=== PATIENT | male | born 1950 | race Caucasian/White ===

== ENCOUNTER → 2019-04-15 09:05 | Outpatient (CLI) | payer MEDICARE, OTHER, SELFPAY ==
[2019-04-15 11:01] LABS: Anion Gap 8 (5-15); BUN 25 mg/dL (7-18); BUN/Creat Ratio 21.2 RATIO (10-20); Calcium,Total 8.9 mg/dL (8.5-10.1); Chloride 102 mmol/L (98-107); Cholesterol 244 mg/dL (200); Creatinine, Serum 1.18 mg/dL (0.70-1.30); EST Glomerular Filtration Rate 65 mL/min (>60); Est Glom Filt Rate - Afr Amer 78 mL/min (>60); Glucose 114 mg/dL (74-106); High Density Lipoprotein 31 mg/dL; PSA,Total - Annual Screen 0.42 ng/mL (0.00-4.00); Potassium 3.3 mmol/L (3.5-5.1); Sodium Level 140 mmol/L (136-145); Triglycerides 363 mg/dL; Very Low Density Lipoprotein 73 mg/dL (5-40)
== END ==
PROVIDERS: Family Provider Family Medicine; PCP Family Medicine; Referring Provider Family Medicine; Visit Provider Family Medicine
DX: I10 Essential (primary) hypertension (principal); Z12.5 Encounter for screening for malignant neoplasm of prostate; E78.00 Pure hypercholesterolemia, unspecified
CPT/HCPCS: 36415; 80048; 80061; 84153; G0103

== ENCOUNTER → 2019-10-12 08:11 | Outpatient (CLI) | payer MEDICARE, OTHER, SELFPAY ==
[2019-10-12 11:13] LABS: Vitamin D,25 Hydroxy 36.3 ng/mL (29.95-100.01)
[2019-10-12 11:16] LABS: Anion Gap 6 (5-15); BUN 14 mg/dL (7-18); BUN/Creat Ratio 10.6 RATIO (10-20); Calcium,Total 9.5 mg/dL (8.5-10.1); Chloride 102 mmol/L (98-107); Cholesterol 229 mg/dL (200); Creatinine, Serum 1.32 mg/dL (0.70-1.30); EST Glomerular Filtration Rate 57 mL/min (>60); Est Glom Filt Rate - Afr Amer 69 mL/min (>60); Glucose 99 mg/dL (74-106); High Density Lipoprotein 35 mg/dL; Potassium 4.1 mmol/L (3.5-5.1); Sodium Level 137 mmol/L (136-145); Thyroid Stim Hormone (TSH) 1.53 uIU/mL (0.358-3.74); Triglycerides 177 mg/dL; Very Low Density Lipoprotein 35 mg/dL (5-40)
== END ==
PROVIDERS: PCP Family Medicine; Referring Provider Family Medicine; Visit Provider Family Medicine
DX: Z00.00 Encounter for general adult medical examination without abnormal findings (principal); I10 Essential (primary) hypertension; E55.9 Vitamin D deficiency, unspecified
CPT/HCPCS: 36415; 80048; 80061; 82306; 84443

== ENCOUNTER → 2019-11-17 07:56 | Outpatient (CLI) | payer MEDICARE, OTHER, SELFPAY ==
[2019-11-17 10:20] LABS: Anion Gap 4 (5-15); BUN 23 mg/dL (7-18); BUN/Creat Ratio 15.4 RATIO (10-20); Calcium,Total 9.1 mg/dL (8.5-10.1); Chloride 100 mmol/L (98-107); Cholesterol 259 mg/dL (200); Creatinine, Serum 1.49 mg/dL (0.70-1.30); EST Glomerular Filtration Rate 49 mL/min (>60); Est Glom Filt Rate - Afr Amer 60 mL/min (>60); Glucose 111 mg/dL (74-106); High Density Lipoprotein 37 mg/dL; Potassium 3.6 mmol/L (3.5-5.1); Sodium Level 137 mmol/L (136-145); Triglycerides 195 mg/dL; Very Low Density Lipoprotein 39 mg/dL (5-40)
[2019-11-17 10:44] LABS: Rubella IgG > 500.0 IU/mL
[2019-11-19 11:01] LABS: Mumps Antibody,IgG 72.4 AU/mL (Immune >10.9); Rubeola IgG Ab > 300.0 AU/mL (Immune >16.4)
== END ==
PROVIDERS: PCP Family Medicine; Referring Provider Family Medicine; Visit Provider Family Medicine
DX: Z00.00 Encounter for general adult medical examination without abnormal findings (principal); I10 Essential (primary) hypertension
CPT/HCPCS: 36415; 80048; 80061; 82043; 86735; 86762; 86765

== ENCOUNTER 2023-02-11 10:12 | Inpatient (IN) | payer MEDICARE, OTHER, SELFPAY ==
[2023-02-11] VITALS (25 sets, daily range): BP systolic 112–171; BP diastolic 69–101; PULSE 69–150; RESP 16–27; TEMP 36.4–36.8; O2SAT 94–100; BMI 28.5; BMI 28.7
--- NOTE | 2023-02-11 10:40 | EKG12_ITS ---
Test Reason : CP Blood Pressure : / mmHG Vent. Rate : 133 BPM Atrial Rate : 000 BPM P-R Int : 000 ms QRS Dur : 128 ms QT Int : 272 ms P-R-T Axes : 000 043 237 degrees QTc Int : 404 ms Atrial fibrillation with rapid ventricular response Left bundle branch block Abnormal ECG Confirmed by SANTOSH DODSON, SYDNEY ([id number]), sound editor ROSA VELASCO ([id number]) on 02/12/2023 9:05:22 AM Referred By: Confirmed By:SYDNEY FROST MD
--- NOTE | 2023-02-11 10:42 | EDS_ITS ---
HPI History of Present Illness Chief Complaint: Palpitations Onset/Context/Timing Onset: Weeks (1) Context: Sudden Onset Timing: Intermittent Quality: Lightheaded Location: Generalized Worsened by: Nothing Relieved by: Nothing Narrative Narrative: Patient presents with palpitations that have been intermittent over the past week. Patient states he had some nausea and vomiting approximately 10 days ago. Patient states the palpitations started soon after that. Patient states he feels like his heart is jumping around. Patient also states he feels like he is lightheaded. Patient states nothing makes it better nothing makes it worse. Patient states he does have some episodes of paroxysmal nocturnal dyspnea. Patient states his nausea and vomiting has since resolved but his palpitations continue to be intermittent and more frequent. Patient denies any chest pain. [facility] Medical History (Updated 02/11/23 @ 11:[address] Raad Pierre DO) Coronary artery disease Home Medications NK 02/11/23 [History Last Taken Unknown] Allergy/AdvReac Type Severity Reaction Status Date / Time No Known Allergies Allergy Verified 02/11/23 10:12 Family History (Updated 02/11/23 @ 10:[address] Raad Pierre DO) Mother CAD (coronary artery disease) Surgical History (Updated 02/11/23 @ 10:[address] Raad Pierre DO) History of heart bypass surgery Hx of foot surgery Hx of knee surgery Social History Smoking Status: Former smoker ROS ROS ED Constitutional Constitutional ED: Denies chills or fever(s) Eyes Eyes: Denies blurry vision or change in vision ENT ENT ED: Denies rhinorrhea or sore throat Cardiovascular Cardiovascular: Reports palpitations; Denies chest pain Respiratory/Chest Respiratory/Chest: Reports dyspnea; Denies cough Gastrointestinal Gastrointestinal: Reports nausea and vomiting Genitourinary Genitourinary ED: Denies dysuria or hematuria Musculoskeletal Musculoskeletal: Denies back pain or neck pain Integumentary Denies abscess or rash Neurologic Neurologic: Denies headache(s) or weakness Allergic/Immunologic Allergic/Immunologic ED: Denies mouth swelling or urticaria EXAM Physical Exam Const Vital Signs: 02/11/23 10:13 02/11/23 12:28 02/11/23 13:25 Temperature 97.6 F L 98.1 F 97.8 F Temperature Source Temporal Oral Temporal Pulse Rate 150 H 109 H 120 H Respiratory Rate 16 18 16 Blood Pressure 145/101 H 161/84 H 145/97 H Blood Pressure Mean 115 109 113 Blood Pressure Source Monitor Blood Pressure Position Semi-Fowlers Blood Pressure Location Left Arm Pulse Ox 100 94 96 Oxygen Delivery Method Room Air Room Air Room Air Positive well nourished and well developed General Appearance ED: well developed HEENT Reports moist mucous membranes Neck supple and no JVD Resp normal respiratory effort and clear to auscultation bilaterally Cardio Rate: tachycardic Rhythm: abnormal rhythm irregularly irregular GI normal to inspection, nondistended, normoactive bowel sounds and non-tender Palpation: soft Extremity normal to inspection General Extremety ED: Negative for edema or tenderness General Extremity: Negative for edema Neuro oriented x3, CN's II-XII intact bilaterally and no sensory deficits noted Sensorium / Orientation: alert Motor Exam: strength 5/5 throughout Psych mental status grossly normal Skin no rashes or lesions noted MDM MDM MDM Narrative Medical decision making narrative: Differential diagnosis includes cardiac dysrhythmia, cardiac ischemia, electrolyte abnormality, dehydration, acute kidney injury, and congestive heart failure. EKG will be obtained to assess for cardiac dysrhythmia and cardiac ischemia. CBC will be obtained to assess for leukocytosis and anemia. Basic metabolic profile will be obtained to assess for electrolyte abnormality and renal function. PT with INR and PTT will be obtained to assess for coagulopathy. High-sensitivity troponin will be obtained to assess for cardiac ischemia. Chest x-ray will be obtained to assess for cardiomegaly and congestive heart failure. Lab Data Attestation: I reviewed the patient's lab results. Lab results narrative: CBC was reviewed. There is a slight anemia with a hemoglobin of 12.3 and hematocrit 37.5. Platelets were slightly increased at 556. Basic metabolic profile was reviewed. Creatinine was slightly elevated at 1.37 and BUN was 19. Glucose was slightly elevated at 147. High-sensitivity troponin was reviewed and was elevated at 3241. PT with INR and PTT were reviewed and were within normal limits. Labs: Laboratory Results - last 24 hr 02/11/23 02/11/23 02/11/23 10:25 10:25 10:25 WBC 10.3 RBC 4.31 L Hgb 12.3 L Hct 37.5 L MCV 87.0 MCH 28.5 MCHC 32.8 RDW Std Deviation 42.1 RDW Coeff of Kash 13.2 Plt Count 556 H MPV 9.2 Immature Gran % (Auto) 0.400 Neut % (Auto) 81.4 H Lymph % (Auto) 11.4 L [place] % (Auto) 5.5 Eos % (Auto) 0.7 Baso % (Auto) 0.6 Absolute Neuts (auto) 8.4 H Absolute Lymphs (auto) 1.17 Nucleated RBC % 0 PT 13.9 INR 1.1 APTT 34.2 Sodium 135 L Potassium 3.5 Chloride 101 Carbon Dioxide 27.0 Anion Gap 7 BUN 19 H Creatinine 1.37 H Estim Creat Clear Calc 51.92 Est GFR (MDRD) Af Amer 65 Est GFR (MDRD) Non-Af 54 L BUN/Creatinine Ratio 13.9 Glucose 147 H Calcium 9.5 Troponin I High Sens 3241 H* Radiography Diagnostic Testing: Clinical Impression(s) from Imaging Studies Chest X-Ray 02/11/23 11:32 IMPRESSION: Chronic interstitial changes, no superimposed acute pulmonary process Electronically Signed: Julio Barr MD at 12:09 EDT , Chest x-ray was obtained. There is 1 view. On my independent interpretation, there is no acute infiltrate. There is cardiomegaly. Bony thorax is normal. There is no acute process noted. Radiologist also interpreted the x-rays and agrees. EKG Initial EKG: Attestation: I personally reviewed and interpreted this EKG as follows: Interpretation: Atrial Fibrillation (133) and LBBB Prior EKG tracings: not available for review Prior: No Prior Management Discussion w/another healthcare provider: Hospitalist (Dr. Stinson) Treatment and Re-Evaluation :: Patient was given a bolus of Cardizem and started on a Cardizem drip. Because of the elevated troponin and atrial fibrillation, patient was started on a heparin drip. Patient was advised of his need for hospitalization. Patient is agreeable with this. Case was discussed with the hospitalist. She will admit the patient to her service. Patient understood and was agreeable with the plan. All questions were answered. Critical Care Time Critical Care Time: Yes Critical care time (excluding procedures): 30-74 minutes (36), Including time spent:, Discussing w/Patient &/or Family/Technology Adoption Manager, Discussing w/Consultants, Arranging Admission or Transfer and Performing Direct Patient Care at Bedside Discharge Plan Dx/Rx/DC Orders Clinical Impression: Atrial fibrillation with rapid ventricular response, Non-ST elevated myocardial infarction (non-STEMI) Disposition Disposition: Acute Care Hospital [facility] Discharge Date/Time: 02/11/23 12:38
[2023-02-11 10:49] LABS: Absolute Lymphocyte Count 1.17 X10^3/uL (0.83-4.51); Absolute Neutrophil Count 8.4 X10^3/uL (2.0-7.7); Basophil# 0.06 X10^3/uL; Basophil% 0.6 % (0-1); Eosinophil# 0.07 X10^3/uL; Eosinophils% 0.7 % (0-5); Hematocrit 37.5 % (40-54); Hemoglobin 12.3 g/dL (13.0-16.5); Lymphocyte # 1.17 X10^3/ul (0.83-4.51); Lymphocyte % 11.4 % (19-41); Mean Corp Hgb Conc 32.8 g/dL (32-36); Mean Corpuscular Hgb 28.5 pg (27.0-32.0); Mean Platelet Vol. 9.2 fl (6.2-12.0); Monocyte# 0.56 X10^3/uL; Monocyte% 5.5 % (0-10); NRBC Flagged by Analyzer 0 % (0-5); Neutrophil # 8.36 X10^3/uL (2.7-7.7); Neutrophil % 81.4 % (47-70); Platelet Count 556 K/mm3 (150-450); RBC Distribution Width CV 13.2 % (11.6-14.6); RBC Distribution Width SD 42.1 fl (35.1-43.9); Red Blood Count 4.31 M/mm3 (4.6-6.2); White Blood Count 10.3 K/mm3 (4.4-11.0)
[2023-02-11] MEDS: dilTIAZem 25 MG/5 ML Vial IV BOLUS ×2 (10:52→21:32)
[2023-02-11 10:58] LABS: Partial Thromboplast Time 34.2 Seconds (24.1-36.2)
[2023-02-11 11:02] LABS: International Normalized Ratio 1.1; Prothrombin Time (Protime)PT. 13.9 SECONDS (11.7-14.9)
[2023-02-11 11:12] LABS: Anion Gap 7 (5-15); BUN 19 mg/dL (7-18); BUN/Creat Ratio 13.9 RATIO (10-20); Calcium,Total 9.5 mg/dL (8.5-10.1); Chloride 101 mmol/L (98-107); Creatinine, Serum 1.37 mg/dL (0.70-1.30); EST Glomerular Filtration Rate 54 mL/min (>60); Est Glom Filt Rate - Afr Amer 65 mL/min (>60); Estimated Creatinine Clearance 51.92 ml/min; Glucose 147 mg/dL (74-106); Potassium 3.5 mmol/L (3.5-5.1); Sodium Level 135 mmol/L (136-145); Troponin-I HS 3241 pg/mL (3.0-78.0)
[2023-02-11] MEDS: Aspirin 81 MG TAB.CHEW 324 MG PO (11:24)
[2023-02-11] MEDS: Heparin Injection (Vial) 5,000 UNIT/ML VIAL 4000 UNIT IV (11:24)
--- NOTE | 2023-02-11 11:32 | RAD_ITS ---
STUDY: X-RAY CHEST REASON FOR EXAM: Male, 72 years old. Palpitations TECHNIQUE: 2 AP portable views COMPARISON: None. FINDINGS: EKG leads overlie the chest Chronic interstitial changes in both lung go without a superimposed acute pulmonary process. Normal size heart. Normal mediastinum and jordin. Normal visualized pulmonary arteries. Normal visualized aortic arch and descending thoracic aorta. There are diffuse degenerative changes of the visualized thoracic spine. Normal visualized ribs, clavicles, and shoulders. There is no demonstrated abnormality of the visualized soft tissue structures of the upper abdomen. RAD/Chest 1 View (Portable) IMPRESSION: Chronic interstitial changes, no superimposed acute pulmonary process Electronically Signed: Julio Barr MD at 12:09 EDT ,
[2023-02-11] MEDS: HEPARIN/D5w 25,000 UNITS 25,000 UNITS/250 ML IV.SOLN. 10 UNITS CONT INF (11:46)
--- NOTE | 2023-02-11 11:56 | HP.PCM.HOS_ITS ---
HPI - General General Date of Admission: 02/11/23 Date of Service: 02/11/23 HPI Narrative ANISH RIVAS, is a 72 M with a PMH as outlined who presents via [facility] ED on 02/11/2023 with a complaint of palpitations. He he started having nausea and vomiting about a week ago. He also felt his heart racing. He said the shortness of breath had been going on for about 2 weeks with associated palpitations. It was worsened by exertion. He denied any chest pain or dizziness or lightheadedness. He denied any increased sweating. He had no other symptoms. He said he had never had such symptoms before. Review of systems otherwise negative. Vitals in the ED were BP of 145/101, with HR of 150, RR of 16 and temp of 97.6F as well as oxygen sats of 100% on room air. CBC showed Hb of 12.3, wbc of 10.3, platelets of 556; BMP was significant for Cr of 1.37, sodium of 135 and initial troponin of 3241. Chest x-ray showed no acute cardiopulmonary process. EKG showed afib with RVR. He has been admitted to be managed for A-fib with RVR which is new onset as well as nonstemi. [facility] Medical History (Updated 02/11/23 @ 11:[address] Raad Pierre DO) Coronary artery disease Home Medications NK 02/11/23 [History Last Taken Unknown] Allergy/AdvReac Type Severity Reaction Status Date / Time No Known Allergies Allergy Verified 02/11/23 10:12 Family History (Updated 02/11/23 @ 10:[address] Raad Pierre DO) Mother CAD (coronary artery disease) Surgical History (Updated 02/11/23 @ 10:[address] Raad Pierre DO) History of heart bypass surgery Hx of foot surgery Hx of knee surgery Social History Smoking Status: Former smoker ROS Constitutional Constitutional: Reports fatigue, malaise and weakness; Denies anorexia, chills or fever(s) Eyes Eyes: Denies change in vision ENT HEENT: Denies dysphagia, headache(s) or nasal congestion Cardiovascular Cardiovascular: Reports dyspnea on exertion, palpitations and rapid heart rate; Denies chest pain, edema, lightheadedness, orthopnea, paroxysmal nocturnal dyspnea or syncope Respiratory/Chest Respiratory/Chest: Reports shortness of breath at rest and shortness of breath with exertion; Denies cough, dyspnea or productive cough Gastrointestinal Gastrointestinal: Reports nausea; Denies abdominal pain, constipation or vomiting Genitourinary Genitourinary: Denies burning urination or dysuria Musculoskeletal Musculoskeletal: Denies arthralgias Neurologic Neurologic: Denies confusion, dizziness, focal weakness, headache(s), seizure- like activity or seizures Endocrine Endocrinology: Denies change in body appearance Hematologic/Lymphatic Hematologic/Lymphatic: Denies anemia or easy bruising Vital Signs Vital Signs Vital Signs: 02/11/23 10:13 Temperature 97.6 F L Temperature Source Temporal Pulse Rate 150 H Respiratory Rate 16 Blood Pressure 145/101 H Blood Pressure Mean 115 Pulse Ox 100 Oxygen Delivery Method Room Air Weight Weight: 210 lb 4.8 oz Body Mass Index (BMI) 28.5 Physical Exam Const alert, oriented x3 and no apparent distress General Appearance: cooperative HEENT normocephalic, head/scalp atraumatic, hearing grossly normal bilaterally, moist oral mucous membranes and oropharynx normal Mouth: oral and palatal mucosa normal Eyes PERRL and EOMs intact bilaterally Neck no lymphadenopathy, supple and no JVD Resp normal respiratory effort, no retractions, no use of accessory muscles and clear to auscultation bilaterally Cardio Cardio Narrative: afib with RVR GI normal to inspection, nondistended, normoactive bowel sounds, soft to palpation, non-tender and non-distended Extremity normal to inspection, full ROM and no clubbing, cyanosis or edema Neuro oriented x3, CN's II-XII intact bilaterally and moves all extremities Sensorium / Orientation: awake and alert Motor Exam: strength 5/5 throughout Psych affect normal Results Lab / Micro Data Result Diagrams: 02/11/23 10:25 02/11/23 10:25 Labs: Laboratory Results - last 24 hr 02/11/23 10:25: WBC 10.3, RBC 4.31 L, Hgb 12.3 L, Hct 37.5 L, MCV 87.0, MCH 28.5, MCHC 32.8, RDW Std Deviation 42.1, RDW Coeff of Kash 13.2, Plt Count 556 H, MPV 9.2, Immature Gran % (Auto) 0.400, Neut % (Auto) 81.4 H, Lymph % (Auto) 11.4 L, [place] % (Auto) 5.5, Eos % (Auto) 0.7, Baso % (Auto) 0.6, Absolute Neuts (auto) 8.4 H, Absolute Lymphs (auto) 1.17, Nucleated RBC % 0 02/11/23 10:25: PT 13.9, INR 1.1, APTT 34.2 02/11/23 10:25: Sodium 135 L, Potassium 3.5, Chloride 101, Carbon Dioxide 27.0, Anion Gap 7, BUN 19 H, Creatinine 1.37 H, Estim Creat Clear Calc 51.92, Est GFR (MDRD) Af Amer 65, Est GFR (MDRD) Non-Af 54 L, BUN/Creatinine Ratio 13.9, Glucose 147 H, Calcium 9.5, Troponin I High Sens 3241 H* Assessment & Plan Assessment/Plan (1) Atrial fibrillation with rapid ventricular response: (2) Non-ST elevated myocardial infarction (non-STEMI): PLAN: Plan #New onset A-fib with RVR * Admit to PCU. Heart rate still in the 150s. Received a bolus of Cardizem in the ED. Started on heparin drip * Will start on Cardizem drip. Continue heparin drip * 2D echo ordered. Initial troponin was also elevated at >1300 * Consult cardiology. Check TSH * #Non-STEMI * This may be due to a demand ischemia on account of A-fib with RVR or the non- STEMI could be the precursor to the A-fib with RVR * Aspirin and high intensity statin. Already on heparin drip. Consult cardiology. * 2D echo ordered. * * #History of CAD s/p CABG: * States he had CABG nearly 20 years ago. 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 * He states he does not take any medications and just exercises and takes care of himself. * We will check lipid panel and A1c. * DVT prophylaxis: Heparin drip CODE STATUS:full code * Patient and counseled extensively about different types of CODE STATUS including full code, DNR CCA and DNR CCA. Patient elects to be full code. * Total [id number] time 17 minutes. Charges/Coding Visit Charges Inpatient E&M: 92373 Init Hosp L3 Procedures Hospitalists Procedures: 00778 Advncd Care Plan 30 Min
--- NOTE | 2023-02-11 11:58 | NURSING ---
DR PARK FOR DR WAGNER
--- NOTE | 2023-02-11 12:04 | NURSING ---
DAYANA Neal RVR, NSTEMI
--- NOTE | 2023-02-11 13:07 | ECHOCS_ITS ---
Reason For Study: ARRYTHMIA Procedure This was a 2D Doppler, Color Flow transthoracic echocardiogram. The study was technically difficult. Contrast injection was performed. Exam performed portable in patient room. Left Ventricle Normal LV size. Moderate global left ventricular systolic dysfunction. The estimated ejection fraction is 38 %. There is moderate global hypokinesis of the left ventricle. Right Ventricle Normal RV size. Normal systolic function. Atria The left atrium is severely enlarged. The right atrium is mildly enlarged. Mitral Valve Normal mitral valve. Tricuspid Valve The tricuspid valve is not well visualized. Mild (1+) tricuspid valve insufficiency. Pulmonary artery systolic pressure is 45 mmHg. Aortic Valve The aortic valve is not well visualized. Pulmonic Valve The pulmonic valve is not well visualized. Great Vessels Normal aortic root. The pulmonary artery is normal size. Normal inferior vena cava. Pericardium/Pleural No pericardial effusion. Medication Diluted definity 2ml given slow IV push to enhance endocardial definition. MMode/2D Measurements & Calculations LVIDd: 5.0 cm IVSd: 1.1 cm LAV(MOD-bp): 124.6 ml LVIDs: 4.0 cm LVPWd: 2.1 cm FS: 20.1 % LAV(MOD-bp) Indexed: 56.3 ml/m2 LAV(MOD-sp2): 136.4 ml LAV(MOD-sp4): 112.0 ml SV(MOD-sp4): 57.4 ml LVAd ap4: 42.5 cm2 LVAd ap2: 37.7 cm2 LVLd ap4: 10.0 cm LVLd ap2: 8.5 cm EDV(MOD-sp4): 150.2 ml EDV(MOD-sp2): 138.1 ml EDV(sp4-el): 153.2 ml EDV(sp2-el): 142.3 ml LVAs ap4: 30.8 cm2 LVAs ap2: 30.3 cm2 LVLs ap4: 8.2 cm LVLs ap2: 8.0 cm ESV(MOD-sp4): 92.8 ml ESV(MOD-sp2): 94.6 ml ESV(sp4-el): 97.9 ml ESV(sp2-el): 97.3 ml EF(MOD-sp4): 38.2 % EF(MOD-sp2): 31.5 % EF(sp4-el): 36.1 % SV(MOD-sp2): 43.5 ml SV(sp4-el): 55.3 ml LA A4 area: 30.8 cm2 RA A4 area: 17.6 cm2 Doppler Measurements & Calculations MV E max jose l: 110.1 cm/sec MV V2 max: 126.5 cm/sec Ao V2 max: 99.0 cm/sec MV max P.5 mmHg Ao max P.0 mmHg MV V2 mean: 76.6 cm/sec Ao V2 mean: 73.9 cm/sec MV mean P.9 mmHg Ao mean P.4 mmHg MV V2 VTI: 27.3 cm Ao V2 VTI: 15.4 cm AV (velocity ratio): 0.78 LV V1 max: 83.8 cm/sec MR max jose l: 507.6 cm/sec TR max jose l: 312.7 cm/sec LV V1 max P.8 mmHg MR max P.1 mmHg TR max P.1 mmHg LV V1 mean P.7 mmHg MR mean jose l: 408.8 cm/sec LV V1 mean: 62.9 cm/sec MR mean P.8 mmHg LV V1 VTI: 11.9 cm MR VTI: 147.6 cm ECHO/Echo Complete W/ Contrast Interpretation Summary Normal LV size. Moderate global left ventricular systolic dysfunction. The estimated ejection fraction is 38 %. There is moderate global hypokinesis of the left ventricle. The left atrium is severely enlarged. Pulmonary artery systolic pressure is 45 mmHg. Contrast injection was performed. Ordering Physician: Aidee Stinson Referring Physician: Heriberto Gerber Performed By: Daphne Meade RCS
[2023-02-11 14:14] LABS: Troponin-I HS 2924 pg/mL (3.0-78.0)
[2023-02-11 18:35] LABS: Partial Thromboplast Time 45.5 Seconds (24.1-36.2)
[2023-02-11 18:50] LABS: Troponin-I HS 2546 pg/mL (3.0-78.0)
--- NOTE | 2023-02-11 19:34 | CON.PCM.CA_ITS ---
Assessment & Plan Assessment/Plan (1) Atrial fibrillation with rapid ventricular response: PLAN: He presents with atrial fibrillation with rapid ventricular response rate. This appears to be new onset. My recommendation is for him to continue with anticoagulation and rate control with intravenous diltiazem. * His [id number] score is approximately 4 and he will need long-term anticoagulation. (2) Non-ST elevated myocardial infarction (non-STEMI): PLAN: He does have evidence of a non-ST elevation myocardial infarction. My recommendation will be to continue the heparin for now start high intensity statin and recommend a left heart catheterization. Risk benefits and alternatives have been explained to him he understands and agrees to proceed. (3) CHF (congestive heart failure): PLAN: He does have evidence of congestive heart failure with an estimated ejection fraction of 38%. The above is likely secondary to hypertensive heart disease, coronary disease, and atrial fibrillation. * Recommendation was to start intravenous Lasix * Start HELENA inhibitor for blood pressure control * Will likely switch to beta-theresa * Will evaluate coronary anatomy with a left heart catheterization (4) HTN (hypertension), benign: PLAN: He does have a history of hypertension his blood pressure does not appear to be very well controlled I would recommend that we start him on an HELENA inhibitor or ARB. (5) History of heart bypass surgery: PLAN: He is status post coronary bypass surgery remotely. This will be evaluated with the left heart catheterization. Thank you for allowing me to participate in the care of your patient. Please don't hesitate to call if any issues arise. HPI Consult Data Date of Consult: 02/11/23 HPI Narrative HPI Narrative: ANISH RIVAS, is a 72 M who presents with epigastric discomfort diarrhea as well as shortness of breath over the last few days. He did have coronary bypass surgery he thinks x1 in 1998. 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 He has been in fairly stable state of health. With his shortness of breath he did not develop any pedal edema he has not had any paroxysmal nocturnal dyspnea and denies any chest pain per se. He has had no dizziness or diaphoresis near syncope or syncope. He did however feel some palpitations. He presented to the emergency room was noted to be in atrial fibrillation with a rapid ventricular response rate and developed abnormal cardiac enzymes. Cardiology was called for further evaluation and management. He was treated initially with heparin as well as intravenous diltiazem with some improvement in his heart rate. [facility] Medical History (Updated 02/11/23 @ 19:[address] Xavier Euceda MD) Coronary artery disease Home Medications NK 02/11/23 [History Last Taken Unknown] Allergy/AdvReac Type Severity Reaction Status Date / Time No Known Allergies Allergy Verified 02/11/23 10:12 Family History Mother CAD (coronary artery disease) Surgical History (Updated 02/11/23 @ 19:[address] Xavier Euceda MD) History of heart bypass surgery Hx of foot surgery Hx of knee surgery Social History Smoking Status: Former smoker ROS Constitutional Constitutional: Denies fever(s) or weight loss Eyes Eyes: Reports systems reviewed and no addt'l complaints, except as documented ENT HEENT: Reports systems reviewed and no addt'l complaints, except as documented Cardiovascular Cardiovascular: Reports dyspnea at rest, dyspnea on exertion and palpitations; D enies chest pain at rest, chest pain with activity, edema or paroxysmal nocturnal dyspnea Respiratory/Chest Respiratory/Chest: Reports shortness of breath at rest and shortness of breath with exertion; Denies dyspnea on exertion or productive cough Gastrointestinal Gastrointestinal: Denies change in bowel habits, nausea, vomiting or weight changes Genitourinary Genitourinary: Denies difficulty urinating Musculoskeletal Musculoskeletal: Denies joint stiffness or muscle weakness Integumentary Integumentary: Denies lesions Neurologic Neurologic: Denies dizziness or syncope Psychiatric Psychiatric: Denies anxiety Endocrine Endocrinology: Denies excessive sweating or fatigue Hematologic/Lymphatic Hematologic/Lymphatic: Denies anemia Allergic/Immunologic Allergic/Immunologic: Denies seasonal rhinorrhea Physical Exam Const alert, oriented x3 and no apparent distress General Appearance: cooperative HEENT hearing grossly normal bilaterally Head and Scalp: atraumatic Eyes EOMs intact bilaterally Neck General: normal visual inspection Chest inspection of chest normal and palpation of chest normal Resp normal respiratory effort Auscultation: clear to auscultation bilaterally Cardio S1 normal heart sound and S2 normal heart sound Jugular Venous Distention: JVD Rhythm: abnormal rhythm irregularly irregular GI normal to inspection, nondistended, normoactive bowel sounds Extremity normal capillary refill and no pedal edema Peripheral Pulses: Yes pulses 2+ throughout and femoral pulses present Skin no rashes or lesions noted Neuro oriented x3 and CN's II-XII intact bilaterally Psych Appearance: grossly normal and appropriate Risk Stratification Risk Stratification Applicable: Yes Age >/= 65: Yes >/= 3 CAD Risk Factors (HTN, HLD, DM, family hx of CAD, or current smoker): No Aspirin Use in the Past 7 Days: No Severe Angina (>/= episodes in 24 hours): No EKG ST Changes >/= 0.5mm: No Positive Cardiac Marker: Yes ROBERTA Risk Stratification Score: 2 ROBERTA % Risk: 8% Risk Objective Data Vital Signs: Vital Signs Temp Pulse Resp BP Pulse Ox O2 Del Method 98.3 F 87 22 H 152/84 H 94 Room Air 02/11/23 15:00 02/11/23 17:00 02/11/23 17:00 02/11/23 17:00 02/11/23 17:00 02/11/23 17:00 Oxygen Delivery Method Room Air Weight: 212 lb Body Mass Index (BMI) 28.7 Intake & Output: Intake and Output for Last 24 Hours 02/09/23 02/10/23 02/11/23 23:59 23:59 23:59 Intake Total 121.17 / 121.17 Balance 121.17 / 121.17 Lab / Micro Data Result Diagrams: 02/11/23 10:25 02/11/23 10:25 Labs: Laboratory Results - last 24 hr 02/11/23 10:25: WBC 10.3, RBC 4.31 L, Hgb 12.3 L, Hct 37.5 L, MCV 87.0, MCH 28.5, MCHC 32.8, RDW Std Deviation 42.1, RDW Coeff of Kash 13.2, Plt Count 556 H, MPV 9.2, Immature Gran % (Auto) 0.400, Neut % (Auto) 81.4 H, Lymph % (Auto) 11.4 L, [place] % (Auto) 5.5, Eos % (Auto) 0.7, Baso % (Auto) 0.6, Absolute Neuts (auto) 8.4 H, Absolute Lymphs (auto) 1.17, Nucleated RBC % 0 02/11/23 10:25: PT 13.9, INR 1.1, APTT 34.2 02/11/23 10:25: Sodium 135 L, Potassium 3.5, Chloride 101, Carbon Dioxide 27.0, Anion Gap 7, BUN 19 H, Creatinine 1.37 H, Estim Creat Clear Calc 51.92, Est GFR (MDRD) Af Amer 65, Est GFR (MDRD) Non-Af 54 L, BUN/Creatinine Ratio 13.9, Glu cose 147 H, Calcium 9.5, Troponin I High Sens 3241 H* 02/11/23 13:37: Troponin I High Sens 2924 H* 02/11/23 16:50: Troponin I High Sens 2546 H* 02/11/23 18:19: APTT 45.5 H Cardiology Labs/Tests 02/11/23 10:25: WBC 10.3, RBC 4.31 L, Hgb 12.3 L, Hct 37.5 L, MCV 87.0, MCH 28.5, MCHC 32.8, Plt Count 556 H, MPV 9.2, Immature Gran % (Auto) 0.400, Neut % (Auto) 81.4 H, Lymph % (Auto) 11.4 L, [place] % (Auto) 5.5, Eos % (Auto) 0.7, Baso % (Auto) 0.6, Absolute Neuts (auto) 8.4 H, Nucleated RBC % 0 02/11/23 10:25: PT 13.9, INR 1.1, APTT 34.2 02/11/23 10:25: Sodium 135 L, Potassium 3.5, Chloride 101, Carbon Dioxide 27.0, Anion Gap 7, BUN 19 H, Creatinine 1.37 H, Est GFR (MDRD) Af Amer 65, Est GFR (MDRD) Non-Af 54 L, BUN/Creatinine Ratio 13.9, Glucose 147 H, Calcium 9.5 02/11/23 18:19: APTT 45.5 H Rhythm: EKG: ECHO: Stress Test: Cardiac Cath: PCI: CT Surgery: Holter monitor: EPS: PPM: CXR: Chest CT Scan: Radiography Diagnostic Testing: Radiology Impression Chest X-Ray 02/11/23 11:32 IMPRESSION: Chronic interstitial changes, no superimposed acute pulmonary process Electronically Signed: Julio Barr MD at 12:09 EDT , Echocardiogram 02/11/23 13:07 Interpretation Summary Normal LV size. Moderate global left ventricular systolic dysfunction. The estimated ejection fraction is 38 %. There is moderate global hypokinesis of the left ventricle. The left atrium is severely enlarged. Pulmonary artery systolic pressure is 45 mmHg. Contrast injection was performed. Ordering Physician: Aidee Stinson Referring Physician: Heriberto Gerber Performed By: Daphne Meade RCS
[2023-02-11] MEDS: 0.9% Saline Lock 10 ML Syringe IV (21:32)
[2023-02-11] MEDS: Furosemide 40 MG/4 ML Vial IV (21:32)
[2023-02-11] MEDS: Atorvastatin Calcium 40 MG Tablet PO (21:37)
[2023-02-12] VITALS (20 sets, daily range): BP systolic 132–177; BP diastolic 65–108; PULSE 78–101; RESP 15–29; TEMP 36.6–36.9; O2SAT 94–99
[2023-02-12 01:34] LABS: Partial Thromboplast Time 37.3 Seconds (24.1-36.2)
[2023-02-12] MEDS: Heparin Injection (Vial) 5,000 UNIT/ML VIAL IV (01:43)
--- NOTE | 2023-02-12 05:55 | EKG12_ITS ---
Test Reason : AM EKG Blood Pressure : / mmHG Vent. Rate : 096 BPM Atrial Rate : 000 BPM P-R Int : 000 ms QRS Dur : 120 ms QT Int : 374 ms P-R-T Axes : 000 052 -77 degrees QTc Int : 472 ms Atrial fibrillation with a competing junctional pacemaker Incomplete left bundle branch block Minimal voltage criteria for LVH, may be normal variant ( Randy product ) Nonspecific ST and T wave abnormality Abnormal ECG When compared with ECG of 11-FEB-2023 10:17, MANUAL COMPARISON REQUIRED, DATA IS UNCONFIRMED Confirmed by SANTOSH DODSON, SYDNEY ([id number]), continuity editor ROSA VELASCO ([id number]) on 02/13/2023 9:31:24 AM Referred By: Confirmed By:SYDNEY FROST MD
[2023-02-12] MEDS: HEPARIN/D5w 25,000 UNITS 25,000 UNITS/250 ML IV.SOLN. 13 UNITS CONT INF (06:31)
[2023-02-12 08:23] LABS: Absolute Lymphocyte Count 1.24 X10^3/uL (0.83-4.51); Absolute Neutrophil Count 6.8 X10^3/uL (2.0-7.7); Basophil# 0.03 X10^3/uL; Basophil% 0.3 % (0-1); Eosinophil# 0.09 X10^3/uL; Hematocrit 33.1 % (40-54); Hemoglobin 11.1 g/dL (13.0-16.5); Lymphocyte # 1.24 X10^3/ul (0.83-4.51); Lymphocyte % 14.4 % (19-41); Mean Corp Hgb Conc 33.5 g/dL (32-36); Mean Corpuscular Hgb 29.4 pg (27.0-32.0); Mean Corpuscular Volume 87.6 fL (80-94); Mean Platelet Vol. 9.3 fl (6.2-12.0); Monocyte# 0.44 X10^3/uL; Monocyte% 5.1 % (0-10); NRBC Flagged by Analyzer 0 % (0-5); Neutrophil # 6.77 X10^3/uL (2.7-7.7); Neutrophil % 78.9 % (47-70); Platelet Count 448 K/mm3 (150-450); RBC Distribution Width CV 13.3 % (11.6-14.6); RBC Distribution Width SD 42.9 fl (35.1-43.9); Red Blood Count 3.78 M/mm3 (4.6-6.2); White Blood Count 8.6 K/mm3 (4.4-11.0)
[2023-02-12 08:36] LABS: Partial Thromboplast Time 37.8 Seconds (24.1-36.2)
[2023-02-12 09:25] LABS: Hemoglobin A1c 6.3 % (3.8-5.6)
--- NOTE | 2023-02-12 11:06 | PN_ITS ---
Subjective Subjective Patient seen and examined. His was by his bedside. He said his shortness of breath had improved. He denied any chest pains or palpitations, dizziness, nausea or vomiting or any other symptoms. Review of systems was otherwise negative. He is for cardiac cath today.. His heat rate is better controlled. Cardiology is on board Objective Data Objective Data Vital Signs: Vital Signs Temp Pulse Resp BP Pulse Ox O2 Del Method 97.9 F 91 18 177/108 H 97 Room Air 02/12/23 09:00 02/12/23 10:00 02/12/23 10:00 02/12/23 10:00 02/12/23 10:00 02/12/23 10:00 Oxygen Delivery Method Room Air Weight: 212 lb Body Mass Index (BMI) 28.7 Intake & Output: Intake and Output for Last 24 Hours 02/10/23 02/11/23 02/12/23 23:59 23:59 23:59 Intake Total 178.42 / 178.67 187.47 / 187.47 Output Total 1000 / 1000 Balance 178.42 / -121.33 -812.53 / -812.53 Lab / Micro Data Result Diagrams: 02/12/23 07:50 02/11/23 10:25 Labs: Laboratory Results - last 24 hr 02/11/23 10:25: Sodium 135 L, Potassium 3.5, Chloride 101, Carbon Dioxide 27.0, Anion Gap 7, BUN 19 H, Creatinine 1.37 H, Estim Creat Clear Calc 51.92, Est GFR (MDRD) Af Amer 65, Est GFR (MDRD) Non-Af 54 L, BUN/Creatinine Ratio 13.9, Glucose 147 H, Calcium 9.5, Troponin I High Sens 3241 H* 02/11/23 13:37: Troponin I High Sens 2924 H* 02/11/23 16:50: Troponin I High Sens 2546 H* 02/11/23 18:19: APTT 45.5 H 02/12/23 01:15: APTT 37.3 H 02/12/23 07:50: WBC 8.6, RBC 3.78 L, Hgb 11.1 L, Hct 33.1 L, MCV 87.6, MCH 29.4, MCHC 33.5, RDW Std Deviation 42.9, RDW Coeff of Kash 13.3, Plt Count 448, MPV 9.3, Immature Gran % (Auto) 0.300, Neut % (Auto) 78.9 H, Lymph % (Auto) 14.4 L, [place] % (Auto) 5.1, Eos % (Auto) 1.0, Baso % (Auto) 0.3, Absolute Neuts (auto) 6.8, Absolute Lymphs (auto) 1.24, Nucleated RBC % 0 02/12/23 07:50: Hemoglobin A1c 6.3 H 02/12/23 07:50: APTT 37.8 H Radiography Diagnostic Testing: Radiology Impression Chest X-Ray 02/11/23 11:32 IMPRESSION: Chronic interstitial changes, no superimposed acute pulmonary process Electronically Signed: Julio Barr MD at 12:09 EDT , Echocardiogram 02/11/23 13:07 Interpretation Summary Normal LV size. Moderate global left ventricular systolic dysfunction. The estimated ejection fraction is 38 %. There is moderate global hypokinesis of the left ventricle. The left atrium is severely enlarged. Pulmonary artery systolic pressure is 45 mmHg. Contrast injection was performed. Ordering Physician: Aidee Stinson Referring Physician: Heriberto Gerber Performed By: Daphne Meade RCS Physical Exam Const alert, oriented x3 and no apparent distress General Appearance: cooperative HEENT normocephalic, head/scalp atraumatic, hearing grossly normal bilaterally, moist oral mucous membranes and oropharynx normal Eyes PERRL and EOMs intact bilaterally Neck no lymphadenopathy, supple and no JVD Resp normal respiratory effort, normal air movement, no retractions, no use of accessory muscles and clear to auscultation bilaterally Cardio regular rate, S1 normal heart sound, S2 normal heart sound and no murmurs Cardio Narrative: In A-fib GI normal to inspection, nondistended, normoactive bowel sounds, soft to palpation, non-tender and non-distended Extremity normal to inspection, full ROM and no clubbing, cyanosis or edema Skin General Skin Exam: no breakdown Neuro oriented x3, CN's II-XII intact bilaterally and moves all extremities Sensorium / Orientation: awake and alert Motor Exam: strength 5/5 throughout Psych affect normal Appearance: appropriate Assessment & Plan Assessment/Plan (1) Atrial fibrillation with rapid ventricular response: (2) Non-ST elevated myocardial infarction (non-STEMI): PLAN: Plan #New onset A-fib with RVR * Heart rate now down in the 90s though he still in A-fib. On Cardizem drip. * 2D echo ordered. CHADVASC score is at least 4 * for cardiac cath today * cardiology on board * * * #Non-STEMI * This may be due to a demand ischemia on account of A-fib with RVR or the non- STEMI could be the precursor to the A-fib with RVR * Aspirin and high intensity statin. Already on heparin drip. * cardiology on board. For cardiac cath today * 2D echo ordered. * * #History of CAD s/p CABG: * States he had CABG nearly 20 years ago. 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 * He states he does not take any medications and just exercises and takes care of himself. * Lipid panel was pending * Impaired glucose tolerance: A1c 6.3. Meets the criteria for impaired glucose tolerance. Counseled on DASH diet and lifestyle changes. DVT prophylaxis: Heparin drip CODE STATUS:full code * Charges/Coding Visit Charges Inpatient E&M: 71071 Subs Hosp L2
--- NOTE | 2023-02-12 11:56 | PN.CARD_ITS ---
Subjective Subjective Patient seen and evaluated and appears to be doing fairly well. Objective Data Vital Signs: Vital Signs Temp Pulse Resp BP Pulse Ox O2 Del Method 97.9 F 91 18 177/108 H 97 Room Air 02/12/23 09:00 02/12/23 10:00 02/12/23 10:00 02/12/23 10:00 02/12/23 10:00 02/12/23 10:00 Oxygen Delivery Method Room Air Weight: 212 lb Body Mass Index (BMI) 28.7 Intake & Output: Intake and Output for Last 24 Hours 02/10/23 02/11/23 02/12/23 23:59 23:59 23:59 Intake Total 178.42 / 178.67 187.47 / 187.47 Output Total 1000 / 1000 Balance 178.42 / -121.33 -812.53 / -812.53 Lab / Micro Data Result Diagrams: 02/12/23 07:50 02/12/23 07:50 Labs: Laboratory Results - last 24 hr 02/11/23 13:37: Troponin I High Sens 2924 H* 02/11/23 16:50: Troponin I High Sens 2546 H* 02/11/23 18:19: APTT 45.5 H 02/12/23 01:15: APTT 37.3 H 02/12/23 07:50: WBC 8.6, RBC 3.78 L, Hgb 11.1 L, Hct 33.1 L, MCV 87.6, MCH 29.4, MCHC 33.5, RDW Std Deviation 42.9, RDW Coeff of Kash 13.3, Plt Count 448, MPV 9.3, Immature Gran % (Auto) 0.300, Neut % (Auto) 78.9 H, Lymph % (Auto) 14.4 L, [place] % (Auto) 5.1, Eos % (Auto) 1.0, Baso % (Auto) 0.3, Absolute Neuts (auto) 6.8, Absolute Lymphs (auto) 1.24, Nucleated RBC % 0 02/12/23 07:50: Hemoglobin A1c 6.3 H 02/12/23 07:50: APTT 37.8 H Cardiology Labs/Tests 02/11/23 18:19: APTT 45.5 H 02/12/23 01:15: APTT 37.3 H 02/12/23 07:50: WBC 8.6, RBC 3.78 L, Hgb 11.1 L, Hct 33.1 L, MCV 87.6, MCH 29.4, MCHC 33.5, Plt Count 448, MPV 9.3, Immature Gran % (Auto) 0.300, Neut % (Auto) 78.9 H, Lymph % (Auto) 14.4 L, [place] % (Auto) 5.1, Eos % (Auto) 1.0, Baso % (Auto) 0.3, Absolute Neuts (auto) 6.8, Nucleated RBC % 0 02/12/23 07:50: Hemoglobin A1c 6.3 H 02/12/23 07:50: APTT 37.8 H Rhythm: EKG: ECHO: Stress Test: Cardiac Cath: PCI: CT Surgery: Holter monitor: EPS: PPM: CXR: Chest CT Scan: Radiography Diagnostic Testing: Radiology Impression Chest X-Ray 02/11/23 11:32 IMPRESSION: Chronic interstitial changes, no superimposed acute pulmonary process Electronically Signed: Julio Barr MD at 12:09 EDT , Echocardiogram 02/11/23 13:07 Interpretation Summary Normal LV size. Moderate global left ventricular systolic dysfunction. The estimated ejection fraction is 38 %. There is moderate global hypokinesis of the left ventricle. The left atrium is severely enlarged. Pulmonary artery systolic pressure is 45 mmHg. Contrast injection was performed. Ordering Physician: Aidee Stinson Referring Physician: Heriberto Gerber Performed By: Daphne Meade RCS Physical Exam Const alert, oriented x3 and no apparent distress General Appearance: cooperative HEENT normocephalic, head/scalp atraumatic, hearing grossly normal bilaterally, moist oral mucous membranes and oropharynx normal Eyes PERRL and EOMs intact bilaterally Neck no lymphadenopathy, supple and no JVD Resp normal respiratory effort, normal air movement, no retractions, no use of accessory muscles and clear to auscultation bilaterally Cardio regular rate, S1 normal heart sound, S2 normal heart sound and no murmurs Cardio Narrative: In A-fib GI normal to inspection, nondistended, normoactive bowel sounds, soft to palpation, non-tender and non-distended Extremity normal to inspection, full ROM and no clubbing, cyanosis or edema Skin General Skin Exam: no breakdown Neuro oriented x3, CN's II-XII intact bilaterally and moves all extremities Sensorium / Orientation: awake and alert Motor Exam: strength 5/5 throughout Psych affect normal Appearance: appropriate Assessment & Plan Assessment/Plan (1) Atrial fibrillation with rapid ventricular response: PLAN: He presents with atrial fibrillation with rapid ventricular response rate. This appears to be new onset. My recommendation is for him to continue with anticoagulation and rate control with intravenous diltiazem. * His [id number] score is approximately 4 and he will need long-term anticoagulation. (2) Non-ST elevated myocardial infarction (non-STEMI): PLAN: He does have evidence of a non-ST elevation myocardial infarction. His cardiac catheterization demonstrated a high-grade right coronary artery lesion. The OLIVEROS to the LAD was patent. He will undergo PCI of the above vessel. (3) CHF (congestive heart failure): PLAN: He does have evidence of congestive heart failure with an estimated ej ection fraction of 38%. The above is likely secondary to hypertensive heart disease, coronary disease, and atrial fibrillation. * Recommendation was to start intravenous Lasix * Start HELENA inhibitor for blood pressure control * Will likely switch to beta-theresa * Will evaluate coronary anatomy with a left heart catheterization (4) HTN (hypertension), benign: PLAN: He does have a history of hypertension his blood pressure does not appear to be very well controlled I would recommend that we start him on an HELENA inhibitor or ARB. (5) History of heart bypass surgery: PLAN: He is status post coronary bypass surgery remotely. This will be evaluated with the left heart catheterization. Thank you for allowing me to participate in the care of your patient. Please don't hesitate to call if any issues arise.
[2023-02-12 11:58] LABS: Anion Gap 6 (5-15); BUN 19 mg/dL (7-18); BUN/Creat Ratio 15.2 RATIO (10-20); Calcium,Total 8.4 mg/dL (8.5-10.1); Chloride 102 mmol/L (98-107); Cholesterol 192 mg/dL (200); Creatinine, Serum 1.25 mg/dL (0.70-1.30); EST Glomerular Filtration Rate 60 mL/min (>60); Est Glom Filt Rate - Afr Amer 73 mL/min (>60); Estimated Creatinine Clearance 56.91 ml/min; Glucose 126 mg/dL (74-106); High Density Lipoprotein 28 mg/dL; Potassium 3.4 mmol/L (3.5-5.1); Sodium Level 135 mmol/L (136-145); Thyroid Stim Hormone (TSH) 1.97 uIU/mL (0.358-3.74); Triglycerides 150 mg/dL; Very Low Density Lipoprotein 30 mg/dL (5-40)
--- NOTE | 2023-02-12 12:05 | CL.D_ITS ---
Patient Name: ANISH RIVAS Study Date: 02/12/2023 Performing: Xavier Euceda MD Ht: 72 inches 182.88 cm : 1950 Wt: 212 lbs 96.16 kg Age: 72 Gender: male BSA: 2.18 PROCEDURE(S) PERFORMED DC01-([id number])LHC/COR/LV IC12-([id number])KALIA W/WO PTCA, SINGLE CORONARY ARTERY CLINICAL PROFILE AND INDICATIONS Indications: ACS <= 24 hrs Heart Failure: NYHA Class: 2, Newly Diagnosed: Yes, Heart Failure Type: Systolic Stress/Imaging Stress/Image Study Performed: No CAD Presentations: Non-STEMI. Symptom onset Date/Time: 02/11/23 Time Not Available CONCLUSIONS Severe disease involving the proximal and mid right coronary artery with sequential 80% stenotic lesions. OLIVEROS to the LAD is patent. Nondominant circumflex artery noted. Mild to moderate left ventricular systolic dysfunction. RECOMMENDATIONS Referred for immediate PCI DESCRIPTION OF PROCEDURE The patient arrived to the procedure lab. The risks and benefits of the procedure as well as a full description of our services here and current unavailability of surgical backup were fully explained to the patient and/or their significant other prior to the catheterization. The Timeout was completed, verifying the correct patient and procedure. The patient's procedural site was prepped and draped in the usual fashion. Local anesthetic was given subcutaneously to left radial region with Lidocaine 2% by Dr Witt. Using a modified Seldinger technique, arterial access was obtained via the left radial artery, a 6Fr sheath was inserted. Dr Witt Left internal mammary artery graft to the LAD selective angiography was performed in multiple views using a 5 Fr. IM catheter. Left Coronary Artery selective angiography was performed in multiple views using a 5 Fr. JL4 catheter. Right Coronary Artery selective angiography was then performed in multiple views using a 5 Fr. 3DRC (Sarkis) catheter. Left Ventriculography was performed in IZQUIERDO projection using a 5 Fr. Pigtail catheter. CORONARY ANGIOGRAPHY DOMINANCE: Right Dominant LEFT HEART ASSESSMENT Abnormal LV wall motion. Global Hypokinesis - Moderate Depressed Left Ventricular systolic function LEFT MAIN: Mild calcification, Mild luminal irregularities less than 30% LEFT ANTERIOR DESCENDING ARTERY: Previously placed stent in the LAD is totally occluded DISTAL LAD: Mild luminal irregularities less than 30% CIRCUMFLEX ARTERY: Nondominant vessel with subtotal mid segment occlusion and OM branch which is patent RAMUS: Moderate luminal irregularities up to 50% RIGHT CORONARY ARTERY: Large dominant vessel with 2 sequential high-grade 80% stenotic lesions and diffuse mild disease present GRAFTS: OLIVEROS graft to the Mid LAD is patent COMPLICATIONS PROCEDURE MEDICATIONS Fentanyl 50 mcg IV Versed 1 mg IV Oxygen: 2 L/min via nasal cannula Aspirin (325mg) 1 Tabs PO 02/12/2023 11:50:05 Brilinta 180 mg PO @ 02/12/2023 11:50:12 Heparin given IA 02/12/2023 11:32:55 Heparin 5000 unit(s) IV 02/12/2023 11:57:09 Verapamil 2.5mg, Ntg 100mcgs, 3000 units of Heparin given IA 02/12/2023 11:32:55 SUMMARY OF HEMODYNAMIC DATA Time AIR REST ECG 11:20:09 AO 124/67 (91) SA 11:37:21 LV 132/6, 17 11:51:23 LV 134/8, 15 11:51:31 LV 133/9, 17 11:52:03 LVp 130/9, 19 11:52:08 AOp 94/-27 (22) 11:52:15 AO 132/77 (99) 11:57:38 Signed By Xavier Euceda MD On 02/12/2023 12:04:43 Xavier Euceda MD
--- NOTE | 2023-02-12 12:17 | CASEMGMT ---
RN CM NOTE: To room to complete initial RN CM assess. 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 RN CM to complete assess at a later time. Ofelia DUNCANN LORI CM
--- NOTE | 2023-02-12 12:30 | CL.I_ITS ---
Patient Name: ANISH RIVAS Study Date: 02/12/2023 Performing: Melodie Witt MD Ht: 72 inches 182.88 cm : 1950 Wt: 212.3 lbs 96.16 kg Age: 72 Gender: male BSA: 2.18 PROCEDURE(S) PERFORMED IC12-(89498/C9600)KALIA W/WO PTCA, SINGLE CORONARY ARTERY CLINICAL PROFILE AND CO-MORBIDITIES Indications: ACS <= 24 hrs Heart Failure: NYHA Class: 2, Newly Diagnosed: Yes, Heart Failure Type: Systolic Stress/Imaging Stress/Image Study Performed: No CAD Presentations: Non-STEMI. Symptom onset Date/Time: 02/11/23 Time Not Available CONCLUSIONS Successful KALIA to mRCA RECOMMENDATIONS DESCRIPTION OF PROCEDURE The patient arrived to the procedure lab. The risks and benefits of the procedure as well as a full description of our services here and current unavailability of surgical backup were fully explained to the patient and/or their significant other prior to the catheterization. The Timeout was completed, verifying the correct patient and procedure. The patient's procedural site was prepped and draped in the usual fashion. Local anesthetic was given subcutaneously to left radial region with Lidocaine 2% by Dr Witt Using a modified Seldinger technique,arterial access was obtained via the left radial artery, a 6Fr sheath was inserted. Dr Witt Left internal mammary artery graft to the LAD selective angiography was performed in multiple views using a 5 Fr. IM catheter. Left Coronary Artery selective angiography was performed in multiple views using a 5 Fr. JL4 catheter. Right Coronary Artery selective angiography was then performed in multiple views using a 5 Fr. 3DRC (Sarkis) catheter. Left Ventriculography was performed in IZQUIERDO projection using a 5 Fr. Pigtail catheter.The images were reviewed and options discussed. A decision was then made to proceed with an Intervention, IVUS or other adjunct procedure. JR4 Guide catheter was inserted and engaged into the RCA. BMW Guide wire was advanced to the RCA. 3.5x20 SC Euphora Balloon catheter was inserted. Balloon catheter was advanced across lesion in the right coronary, mid. PTCA balloon inflated at 8 atms for 16 secs. Angiogram performed post balloon dilatation. 4x30 Resolute Drug Eluting stent was inserted. Drug Eluting stent was advanced across the lesion in the right coronary, mid. Angiogram performed post stent deployment. The arterial sheath was pulled and a TR Band was applied for hemostasis. 11cc of air INTERVENTION INFORMATION LESION SITE: RCA (Mid) Lesion Complexity: High/C, chronic total occlusion: No, lesion at bifurcation: No, thrombus present: No, lesion length: 30 mm, culprit lesion: Yes, Previously treated lesion: No Pre Stenosis: 90 % Pre intervention ROBERTA flow: 3 PROCEDURE: Drug Eluting Stent with pre dilatation. Post Stenosis: 0 % Post intervention ROBERTA flow: 3 Lesion Devices: Cat .014 190cm BMW [place] Straight Cordis 6 Fr JR4 100cm Guide Catheter Medtronic SC EUPHORA RX 3.5x20 BALLOON Medtronic Resolute [place] RX KALIA 4.0x30 COMPLICATIONS No Complications PROCEDURE MEDICATIONS Fentanyl 50 mcg IV Versed 1 mg IV Oxygen: 2 L/min via nasal cannula Aspirin (325mg) 1 Tabs PO 02/12/2023 11:50:05 Brilinta 180 mg PO @ 02/12/2023 11:50:12 Heparin given IA 02/12/2023 11:32:55 Heparin 5000 unit(s) IV 02/12/2023 11:57:09 Nitro 150 mcg IC 02/12/2023 12:08:49 Verapamil 2.5mg, Ntg 100mcgs, 3000 units of Heparin given IA 02/12/2023 11:32:55 SUMMARY OF HEMODYNAMIC DATA Time AIR REST ECG 11:20:09 AO 124/67 (91) SA 11:37:21 LV 132/6, 17 11:51:23 LV 134/8, 15 11:51:31 LV 133/9, 17 11:52:03 LVp 130/9, 19 11:52:08 AOp 94/-27 (22) 11:52:15 AO 132/77 (99) 11:57:38 Signed By Melodie Witt MD On 02/12/2023 12:29:25 Melodie Witt MD
--- NOTE | 2023-02-12 12:30 | EKG12_ITS ---
Test Reason : AM EKG Blood Pressure : / mmHG Vent. Rate : 114 BPM Atrial Rate : 267 BPM P-R Int : 000 ms QRS Dur : 132 ms QT Int : 362 ms P-R-T Axes : 089 051 -75 degrees QTc Int : 498 ms Atrial flutter with variable A-V block Left bundle branch block Abnormal ECG When compared with ECG of 12-FEB-2023 13:10, MANUAL COMPARISON REQUIRED, DATA IS UNCONFIRMED Confirmed by SANTOSH DODSON, SYDNEY ([id number]), scientific editor ROSA VELASCO ([id number]) on 02/14/2023 8:14:16 AM Referred By: Confirmed By:SYDNEY FROST MD
--- NOTE | 2023-02-12 13:30 | CASEMGMT ---
RN CM CAUSTIC LOADER CM to room to meet with patient for initial transition planning/care coordination assessment. LORI MEHTA introduced self and role at [facility].? Pt voices understanding and consents to assessment at this time.? Pt resting in bed in no distress at this time.? Friend @ bedside and pt agreeable to her being present during assessment. Pt is A/O at this time and answers all questions appropriately.?? Care providers, pharmacy, and demographics verified/updated at this time. PCP: Dr Gerber Specialists: none. Pt plans to f/u with Dr Euceda/cardiology Preferred Pharmacy: [facility] Retail @ d/c Insurance: MCR, [employer] Prescription Benefit:?yes. Cath w/PCI done today. Pt states he was on an anti-coag in the past but it was about 20 yrs ago and he does not remember what it was. Discussed anti-coag and 30-day savings card and instructed on use. Discussed importance of taking this medication. Pt made aware if refills are not affordable to discuss other more affordable options w/survey workers supervisor. Living Will/HPOA:?Pt does not currently have LW/HCPOA and declines info at this time.? Pt made aware that he can contact as an out-pt and make appt in the future if he decides he would like to talk with someone about this or would like to utilize [facility] social work for advanced directive completion. Patient expresses understanding. LNOK: Sudha Key. 3 other children Living Arrangements: Lives alone in one-story home w/2 steps to enter. Indep w/ADL's and IADL's. Transportation: Pt states drives self and states no transportation concerns at this time.? DME: ?Has a BP machine only. Denies other DME needs. HHC/SNF: No hx of either and no needs identified. Pt wishes to return home and states has no concerns with going home at time of discharge.?CM to follow for any discharge planning/needs.? Pt voices no further concerns/needs at this time.? Advised pt to ask for CM if any further questions/concerns/needs arise.? Voices understanding. PLAN: ?Home Ofelia BARNES RN, CM
[2023-02-12] MEDS: dilTIAZem 25 MG/5 ML Vial IV BOLUS (15:18)
[2023-02-12] MEDS: Furosemide 40 MG/4 ML Vial IV (15:18)
[2023-02-12] MEDS: 0.9% Saline Lock 10 ML Syringe IV (15:18)
--- NOTE | 2023-02-12 15:37 | CRPHASE1_ITS ---
Patient Communication Former Patient:: Phase II PHII Cardiac Rehab Discussed with Patient:: Yes Guide to Cardiac Rehab Given to Patient:: Yes Cardiac Rehab Facility Choice List Given to Patient:: Yes Choice Program [facility] CR PHII:: Communication Given to CR Pbx Supervisor:: Laura Witt Refer Phase II Cardiac Rehab:: Yes Sessions:: 36 sessions - 3 days/wk, 12 weeks Cardiac Rehabilitation Info Cardiac Rehabilitation Program Information: Cardiac Rehab The cardiac rehab team at [facility] consists of highly skilled exercise physiologists, nurses, respiratory therapists and physicians working together with you. Our purpose is to help you have a full recovery and achieve the goals you set for yourself. Over the years many of our patients have returned to activities they assumed they would never do again! We can help restore your confidence and motivation to make lifestyle changes that can have a significant impact on your health and quality of life! We can help answer questions and concerns you may have about exercise, lifestyle, medications, diet, stress and anxiety which are common following a hospitalization. WE monitor ECG and vital signs during exercise and discuss your progress with you and report to your physician(s). Cardiac Rehab is proven to help reduce readmissions, improve functional capacity and lower recurrence of problems with your heart. Our Cardiac Rehab program is Certified by the [place] [employer]-Vascular and Pulmonary Rehabilitation (AACVPR) and Accredited by the [place] [employer] through our [facility]. You can contact us at . We invite you to call us with your questions or to get started in our program. If you have other questions or concerns be sure to ask your physician/provider during your follow-up visit. WE look forward to seeing you!
--- NOTE | 2023-02-12 15:38 | CRPH1.INSTRU ---
General Education CAD and cardiac anatomy and function:: Patient communicates acknowledgment, Needs reinforcement Explanation of diagnoses and procedures:: Patient communicates acknowledgment, Needs reinforcement Sign/Symptoms of ND:: Patient communicates acknowledgment, Needs reinforcement Antiplatelet therapy: Patient communicates acknowledgment, Needs reinforcement Proper use of NTG-SL: Patient communicates acknowledgment, Needs reinforcement Compliance of all prescribed medications: Patient communicates acknowledgment, Needs reinforcement Smoking Patient Nicotine/Smoking Risk Factors Are:: Non-smoker Nicotine/Smoking Response Code:: Patient communicates acknowledgment, Needs reinforcement Dyslipidemia Patient Dyslipidemia Risk Factors Are:: Total Cholesterol, Triglycerides, HDL, LDL Recommendations Include:: Lipid profile not available Dyslipidemia Response Code:: Patient communicates acknowledgment, Needs reinforcement Overweight/Obesity Patient Overweight/Obesity Risk Factors Are:: BMI Normal [24-29 & > 65 years old] Recommendations Include:: Weight loss of 5-10%, Reduced calorie diet, Exercise 5-7 times/week Overweight/Obesity:: Patient communicates acknowledgment, Needs reinforcement Hypertension Recommendations Include:: Maintain BP <130/85, Decrease/maintain normal body weight Hypertension:: Patient communicates acknowledgment, Needs reinforcement Heart Disease Patient Heart Disease Risk Factors Are:: Previous cardiac event Recommendations Include:: Educated family members of their risk Heart Disease Response Code:: Patient communicates acknowledgment, Needs reinforcement Diabetes Patient Diabetes Risk Factors Are:: Elevated blood sugars Recommendations Include:: Maintain fasting blood sugars 70-110 md/dL, Maintain HgbA1c of 6% or less, Monitor blood sugar as prescribed, Decrease/maintain body weight Diabetes:: Patient communicates acknowledgment, Needs reinforcement Metabolic Syndrome Patient Metabolic Syndrome Risk Factors Are [3 of 5]:: Hypertension Sedentary Patient Sedentary Risk Factors Are:: Lack of regular exercise Recommendations Include:: Aerobic exercise 5-7 times/week for 20-30 minutes continuously, Benefits of regular exercise, Monitored Outpatient Cardiac Rehab Sedentary Response Code:: Patient communicates acknowledgment, Needs reinforcement Stress Recommendations Include:: Identification of stressors, and assessment of coping skills, Stress management techniques Stress Response Code:: Patient communicates acknowledgment, Needs reinforcement
[2023-02-12] MEDS: TICAGRELOR 90 MG TABLET PO (20:58)
[2023-02-12] MEDS: Atorvastatin Calcium 40 MG Tablet PO (20:59)
[2023-02-12] MEDS: Metoprolol Tartrate 50 MG Tablet PO (20:59)
[2023-02-13] VITALS (8 sets, daily range): BP systolic 138–169; BP diastolic 75–99; PULSE 80–129; RESP 16–18; TEMP 36.1–36.8; O2SAT 96–99
[2023-02-13 06:11] LABS: Absolute Lymphocyte Count 0.94 X10^3/uL (0.83-4.51); Absolute Neutrophil Count 8.4 X10^3/uL (2.0-7.7); Basophil# 0.02 X10^3/uL; Basophil% 0.2 % (0-1); Hematocrit 36.3 % (40-54); Hemoglobin 12.1 g/dL (13.0-16.5); Lymphocyte # 0.94 X10^3/ul (0.83-4.51); Lymphocyte % 9.4 % (19-41); Mean Corp Hgb Conc 33.3 g/dL (32-36); Mean Corpuscular Hgb 28.8 pg (27.0-32.0); Mean Corpuscular Volume 86.4 fL (80-94); Mean Platelet Vol. 9.2 fl (6.2-12.0); Monocyte# 0.54 X10^3/uL; Monocyte% 5.4 % (0-10); NRBC Flagged by Analyzer 0 % (0-5); Neutrophil % 83.6 % (47-70); Platelet Count 503 K/mm3 (150-450); RBC Distribution Width CV 13.2 % (11.6-14.6); RBC Distribution Width SD 41.3 fl (35.1-43.9)
[2023-02-13 07:00] LABS: ALB/GLOB Ratio 0.6 RATIO (0.9-2.4); AST(SGOT) 22 U/L (15-37); Alanine Aminotransfer ALT/SGPT 30 U/L (16-61); Albumin, Serum 2.7 g/dL (3.2-5.0); Alkaline Phosphatase 86 U/L (45-117); Anion Gap 3 (5-15); BUN 16 mg/dL (7-18); BUN/Creat Ratio 13.2 RATIO (10-20); Calcium,Total 8.4 mg/dL (8.5-10.1); Chloride 103 mmol/L (98-107); Creatinine, Serum 1.21 mg/dL (0.70-1.30); EST Glomerular Filtration Rate 62 mL/min (>60); Est Glom Filt Rate - Afr Amer 75 mL/min (>60); Estimated Creatinine Clearance 58.79 ml/min; Globulin 4.3 g/dL (2.2-4.2); Glucose 119 mg/dL (74-106); Potassium 3.5 mmol/L (3.5-5.1); Sodium Level 134 mmol/L (136-145); Thyroid Stim Hormone (TSH) 2.54 uIU/mL (0.358-3.74)
--- NOTE | 2023-02-13 07:37 | PN.CARD_ITS ---
Subjective Subjective Patient seen and evaluated. Still complains of irregular heartbeat. Objective Data Vital Signs: Vital Signs Temp Pulse Resp BP Pulse Ox O2 Del Method 97.1 F L 85 16 149/76 H 98 Room Air 02/13/23 03:20 02/13/23 03:20 02/13/23 03:20 02/13/23 03:20 02/13/23 03:20 02/13/23 03:20 Oxygen Delivery Method Room Air Weight: 212 lb Body Mass Index (BMI) 28.7 Intake & Output: Intake and Output for Last 24 Hours 02/11/23 02/12/23 02/13/23 23:59 23:59 23:59 Intake Total 178.42 / 178.67 187.47 / 187.47 Output Total 3775 / 3775 Balance 178.42 / -121.33 -3587.53 / -3587.53 Lab / Micro Data Result Diagrams: 02/13/23 05:30 02/13/23 05:30 Labs: Laboratory Results - last 24 hr 02/12/23 07:50: WBC 8.6, RBC 3.78 L, Hgb 11.1 L, Hct 33.1 L, MCV 87.6, MCH 29.4, MCHC 33.5, RDW Std Deviation 42.9, RDW Coeff of Kash 13.3, Plt Count 448, MPV 9.3, Immature Gran % (Auto) 0.300, Neut % (Auto) 78.9 H, Lymph % (Auto) 14.4 L, White % (Auto) 5.1, Eos % (Auto) 1.0, Baso % (Auto) 0.3, Absolute Neuts (auto) 6.8, Absolute Lymphs (auto) 1.24, Nucleated RBC % 0 02/12/23 07:50: Sodium 135 L, Potassium 3.4 L, Chloride 102, Carbon Dioxide 27.0, Anion Gap 6, BUN 19 H, Creatinine 1.25, Estim Creat Clear Calc 56.91, Est GFR (MDRD) Af Amer 73, Est GFR (MDRD) Non-Af 60, BUN/Creatinine Ratio 15.2, Glucose 126 H, Calcium 8.4 L, Triglycerides 150, Cholesterol 192, LDL Cholesterol 134 H, VLDL Cholesterol 30, HDL Cholesterol 28 L, TSH 1.97 02/12/23 07:50: Hemoglobin A1c 6.3 H 02/12/23 07:50: APTT 37.8 H 02/13/23 05:30: WBC 10.0, RBC 4.20 L, Hgb 12.1 L, Hct 36.3 L, MCV 86.4, MCH 2 8.8, MCHC 33.3, RDW Std Deviation 41.3, RDW Coeff of Kash 13.2, Plt Count 503 H, MPV 9.2, Immature Gran % (Auto) 0.400, Neut % (Auto) 83.6 H, Lymph % (Auto) 9.4 L, White % (Auto) 5.4, Eos % (Auto) 1.0, Baso % (Auto) 0.2, Absolute Neuts (auto) 8.4 H, Absolute Lymphs (auto) 0.94, Nucleated RBC % 0 02/13/23 05:30: Sodium 134 L, Potassium 3.5, Chloride 103, Carbon Dioxide 28.0, Anion Gap 3 L, BUN 16, Creatinine 1.21, Estim Creat Clear Calc 58.79, Est GFR (MDRD) Af Amer 75, Est GFR (MDRD) Non-Af 62, BUN/Creatinine Ratio 13.2, Glucose 119 H, Calcium 8.4 L, Total Bilirubin 0.70, AST 22, ALT 30, Alkaline Phosphatase 86, Total Protein 7.0, Albumin 2.7 L, Globulin 4.3 H, Albumin/Globulin Ratio 0.6 L, TSH 2.54 Cardiology Labs/Tests 02/12/23 07:50: WBC 8.6, RBC 3.78 L, Hgb 11.1 L, Hct 33.1 L, MCV 87.6, MCH 29.4, MCHC 33.5, Plt Count 448, MPV 9.3, Immature Gran % (Auto) 0.300, Neut % (Auto) 78.9 H, Lymph % (Auto) 14.4 L, White % (Auto) 5.1, Eos % (Auto) 1.0, Baso % (Auto) 0.3, Absolute Neuts (auto) 6.8, Nucleated RBC % 0 02/12/23 07:50: Sodium 135 L, Potassium 3.4 L, Chloride 102, Carbon Dioxide 27.0, Anion Gap 6, BUN 19 H, Creatinine 1.25, Est GFR (MDRD) Af Amer 73, Est GFR (MDRD) Non-Af 60, BUN/Creatinine Ratio 15.2, Glucose 126 H, Calcium 8.4 L, Triglycerides 150, Cholesterol 192, LDL Cholesterol 134 H, VLDL Cholesterol 30, HDL Cholesterol 28 L 02/12/23 07:50: Hemoglobin A1c 6.3 H 02/12/23 07:50: APTT 37.8 H 02/13/23 05:30: WBC 10.0, RBC 4.20 L, Hgb 12.1 L, Hct 36.3 L, MCV 86.4, MCH 28.8, MCHC 33.3, Plt Count 503 H, MPV 9.2, Immature Gran % (Auto) 0.400, Neut % (Auto) 83.6 H, Lymph % (Auto) 9.4 L, White % (Auto) 5.4, Eos % (Auto) 1.0, Baso % (Auto) 0.2, Absolute Neuts (auto) 8.4 H, Nucleated RBC % 0 02/13/23 05:30: Sodium 134 L, Potassium 3.5, Chloride 103, Carbon Dioxide 28.0, Anion Gap 3 L, BUN 16, Creatinine 1.21, Est GFR (MDRD) Af Amer 75, Est GFR (MDRD) Non-Af 62, BUN/Creatinine Ratio 13.2, Glucose 119 H, Calcium 8.4 L, Total Bilirubin 0.70 Rhythm: EKG: ECHO: Stress Test: Cardiac Cath: PCI: CT Surgery: Holter monitor: EPS: PPM: CXR: Chest CT Scan: Physical Exam Const alert, oriented x3 and no apparent distress General Appearance: cooperative HEENT normocephalic, head/scalp atraumatic, hearing grossly normal bilaterally, moist oral mucous membranes and oropharynx normal Eyes PERRL and EOMs intact bilaterally Neck no lymphadenopathy, supple and no JVD Resp normal respiratory effort, normal air movement, no retractions, no use of accessory muscles and clear to auscultation bilaterally Cardio regular rate, S1 normal heart sound, S2 normal heart sound and no murmurs Cardio Narrative: In A-fib GI normal to inspection, nondistended, normoactive bowel sounds, soft to palpation, non-tender and non-distended Extremity normal to inspection, full ROM and no clubbing, cyanosis or edema Skin General Skin Exam: no breakdown Neuro oriented x3, CN's II-XII intact bilaterally and moves all extremities Sensorium / Orientation: awake and alert Motor Exam: strength 5/5 throughout Psych affect normal Appearance: appropriate Assessment & Plan Assessment/Plan (1) Atrial fibrillation with rapid ventricular response: PLAN: He presents with atrial fibrillation with rapid ventricular response rate. This appears to be new onset. My recommendation is for him to continue with anticoagulation and rate control with beta-theresa the dose of which has been increased. * His [id number] score is approximately 4 and he will need long-term anticoagulation. (2) Non-ST elevated myocardial infarction (non-STEMI): PLAN: He does have evidence of a non-ST elevation myocardial infarction. His cardiac catheterization demonstrated a high-grade right coronary artery lesion. The OLIVEROS to the LAD was patent. He did undergo PCI of the above successfully and is doing better. (3) CHF (congestive heart failure): PLAN: He does have evidence of congestive heart failure with an estimated ejection fraction of 38%. The above is likely secondary to hypertensive heart disease, coronary disease, and atrial fibrillation. * Would add oral Lasix * Continue beta-theresa * Add low-dose HELENA inhibitor * Follow-up in office after medications titrated appropriately * Will consider SGLT2 inhibitor as outpatient (4) HTN (hypertension), benign: PLAN: He does have a history of hypertension his blood pressure does not appear to be very well controlled I would recommend that we start him on an HELENA inhibitor or ARB. (5) History of heart bypass surgery: PLAN: He is status post coronary bypass surgery remotely. This was evaluated with the heart catheterization. Thank you for allowing me to participate in the care of your patient. Please don't hesitate to call if any issues arise.
[2023-02-13] MEDS: Aspirin E.C. 81 MG Tablet PO (08:33)
[2023-02-13] MEDS: Metoprolol Tartrate 100 MG Tablet PO ×2 (08:33→21:10)
[2023-02-13] MEDS: TICAGRELOR 90 MG TABLET PO ×2 (08:33→21:10)
[2023-02-13] MEDS: APIXABAN 5 MG TABLET PO ×2 (08:34→21:11)
[2023-02-13] MEDS: Losartan Potassium 25 MG Tablet PO (08:34)
[2023-02-13] MEDS: 0.9% Saline Lock 10 ML Syringe IV (08:35)
--- NOTE | 2023-02-13 10:00 | EKG12_ITS ---
Test Reason : PCI Blood Pressure : / mmHG Vent. Rate : 104 BPM Atrial Rate : 264 BPM P-R Int : 000 ms QRS Dur : 132 ms QT Int : 374 ms P-R-T Axes : 000 050 -88 degrees QTc Int : 491 ms Atrial flutter with variable A-V block Non-specific intra-ventricular conduction block Nonspecific T wave abnormality Abnormal ECG When compared with ECG of 12-FEB-2023 05:32, MANUAL COMPARISON REQUIRED, DATA IS UNCONFIRMED Confirmed by SANTOSH DODSON, SYDNEY ([id number]), rewrite editor ROSA VELASCO ([id number]) on 02/14/2023 8:14:55 AM Referred By: VIVIAN Confirmed By:SYDNEY FROST MD
--- NOTE | 2023-02-13 14:12 | PN_ITS ---
Subjective Subjective Patient seen and examined. He had no complaints today. He had an uneventful night. He is s/p cardiac cath yesterday with placement of stents in the RCA. He still does remain a bit tachycardic and his medications were adjusted by cardiology today. Review systems otherwise negative. Objective Data Objective Data Vital Signs: Vital Signs Temp Pulse Resp BP Pulse Ox O2 Del Method 97.2 F L 119 H 18 162/97 H 99 Room Air 02/13/23 09:20 02/13/23 09:20 02/13/23 09:20 02/13/23 09:20 02/13/23 09:20 02/13/23 09:20 Oxygen Delivery Method Room Air Weight: 212 lb Body Mass Index (BMI) 28.7 Intake & Output: Intake and Output for Last 24 Hours 02/11/23 02/12/23 02/13/23 23:59 23:59 23:59 Intake Total 178.42 / 178.67 187.47 / 187.47 720 / 720 Output Total 3775 / 3775 Balance 178.42 / -121.33 -3587.53 / -3587.53 720 / 720 Lab / Micro Data Result Diagrams: 02/13/23 05:30 02/13/23 05:30 Labs: Laboratory Results - last 24 hr 02/13/23 05:30: WBC 10.0, RBC 4.20 L, Hgb 12.1 L, Hct 36.3 L, MCV 86.4, MCH 28.8, MCHC 33.3, RDW Std Deviation 41.3, RDW Coeff of Kash 13.2, Plt Count 503 H, MPV 9.2, Immature Gran % (Auto) 0.400, Neut % (Auto) 83.6 H, Lymph % (Auto) 9.4 L, [place] % (Auto) 5.4, Eos % (Auto) 1.0, Baso % (Auto) 0.2, Absolute Neuts (auto) 8.4 H, Absolute Lymphs (auto) 0.94, Nucleated RBC % 0 02/13/23 05:30: Sodium 134 L, Potassium 3.5, Chloride 103, Carbon Dioxide 28.0, Anion Gap 3 L, BUN 16, Creatinine 1.21, Estim Creat Clear Calc 58.79, Est GFR (MDRD) Af Amer 75, Est GFR (MDRD) Non-Af 62, BUN/Creatinine Ratio 13.2, Glucose 119 H, Calcium 8.4 L, Total Bilirubin 0.70, AST 22, ALT 30, Alkaline Phosphatase 86, Total Protein 7.0, Albumin 2.7 L, Globulin 4.3 H, Albumin/Globulin Ratio 0.6 L, TSH 2.54 Physical Exam Const alert, oriented x3 and no apparent distress General Appearance: cooperative HEENT normocephalic, head/scalp atraumatic, hearing grossly normal bilaterally, moist oral mucous membranes and oropharynx normal Eyes PERRL and EOMs intact bilaterally Neck no lymphadenopathy, supple and no JVD Lymph Lymphatic: no lymphadenopathy noted Resp normal respiratory effort, normal air movement, no retractions, no use of accessory muscles and clear to auscultation bilaterally Cardio regular rate, S1 normal heart sound, S2 normal heart sound and no murmurs Cardio Narrative: In A-fib, rate controlled GI normal to inspection, nondistended, normoactive bowel sounds, soft to palpation, non-tender and non-distended Extremity normal to inspection, full ROM, normal capillary refill, no clubbing, cyanosis or edema and no calf tenderness Skin General Skin Exam: no breakdown Neuro oriented x3, CN's II-XII intact bilaterally, moves all extremities and no focal motor deficits Sensorium / Orientation: awake and alert Motor Exam: strength 5/5 throughout and general weakness Psych thought process normal, cooperative and affect normal Appearance: appropriate Assessment & Plan Assessment/Plan (1) Atrial fibrillation with rapid ventricular response: (2) Non-ST elevated myocardial infarction (non-STEMI): PLAN: Plan #New onset A-fib with RVR * Rate is improving though he still remains slightly tachycardic. Markus VASC score is at least 4 * Now off Cardizem drip. On metoprolol 100 mg twice daily. * Cardiology on board. * 2D echo showed EF of 38% * * #Non-STEMI * This may be due to a demand ischemia on account of A-fib with RVR or the non- STEMI could be the precursor to the A-fib with RVR * Aspirin and high intensity statin. * Cardiology on board. He had cardiac cath which showed high-grade right coronary artery lesion in the RCA for which he had PCI with stents placement. * On aspirin, Brilinta and high intensity statin * 2D echo showed EF of 38% and evidence of congestive heart failure * #Acute heart failure with reduced ejection fraction * 2D echo as above. Now on oral Lasix and metoprolol. Losartan added on. * To consider SG L2 inhibitor on outpatient basis as per cardiology. * * #History of CAD s/p CABG: * States he had CABG nearly 20 years ago. * However he has not been on any dual antiplatelets or any statins for at least 15 years now after he parted ways with with his library media technician because he felt he was giving him too many medications. * He states he does not take any medications and just exercises and takes care of himself. * cardiac cath findings as above. * Impaired glucose tolerance: * A1c 6.3. Meets the criteria for impaired glucose tolerance. Counseled on DASH diet and lifestyle changes. DVT prophylaxis: SC lovenox CODE STATUS:full code * * Disposition: for likely dc tomorrow once HR improves. Charges/Coding Visit Charges Inpatient E&M: 19146 Subs Hosp L2
--- NOTE | 2023-02-13 14:34 | CASEMGMT ---
Sw presented to bedside, introduced self and explained sw role during admission. Sw asked patient if he has completed advanced directives. Patient states that he has no completed them but wishes to get them done. Sw provided patient with documents and offered to assist him in completing them. Patient reports that he will take them home and will complete them with his family. Sw expressed understanding and assessed for any other needs or concerns at this time. Patient denies. Mckenzie Gaston, COMPRESS ENGINEER, HEATING PLANT SUPERINTENDENT
[2023-02-13] MEDS: Atorvastatin Calcium 40 MG Tablet PO (21:11)
[2023-02-14 05:51] LABS: Absolute Lymphocyte Count 1.48 X10^3/uL (0.83-4.51); Absolute Neutrophil Count 8.1 X10^3/uL (2.0-7.7); Basophil# 0.05 X10^3/uL; Basophil% 0.5 % (0-1); Eosinophil# 0.18 X10^3/uL; Eosinophils% 1.7 % (0-5); Hematocrit 37.3 % (40-54); Hemoglobin 12.3 g/dL (13.0-16.5); Lymphocyte # 1.48 X10^3/ul (0.83-4.51); Lymphocyte % 14.1 % (19-41); Mean Corpuscular Hgb 28.7 pg (27.0-32.0); Mean Corpuscular Volume 86.9 fL (80-94); Mean Platelet Vol. 9.1 fl (6.2-12.0); Monocyte# 0.59 X10^3/uL; Monocyte% 5.6 % (0-10); NRBC Flagged by Analyzer 0 % (0-5); Neutrophil # 8.13 X10^3/uL (2.7-7.7); Neutrophil % 77.6 % (47-70); Platelet Count 549 K/mm3 (150-450); RBC Distribution Width CV 13.3 % (11.6-14.6); RBC Distribution Width SD 41.8 fl (35.1-43.9); Red Blood Count 4.29 M/mm3 (4.6-6.2); White Blood Count 10.5 K/mm3 (4.4-11.0)
[2023-02-14 06:23] LABS: Anion Gap 8 (5-15); BUN 18 mg/dL (7-18); Calcium,Total 9.1 mg/dL (8.5-10.1); Chloride 102 mmol/L (98-107); Creatinine, Serum 1.29 mg/dL (0.70-1.30); EST Glomerular Filtration Rate 58 mL/min (>60); Est Glom Filt Rate - Afr Amer 70 mL/min (>60); Estimated Creatinine Clearance 55.14 ml/min; Glucose 121 mg/dL (74-106); Potassium 3.3 mmol/L (3.5-5.1); Sodium Level 136 mmol/L (136-145)
[2023-02-14 08:23] VITALS: BP 147/96; PULSE 92; RESP 16; TEMP 36.4; O2SAT 95
[2023-02-14 08:27] VITALS: PULSE 92
[2023-02-14] MEDS: TICAGRELOR 90 MG TABLET PO (08:27)
[2023-02-14] MEDS: Potassium Chloride Oral Tablet 20 MEQ 40 MEQ PO (08:27)
[2023-02-14] MEDS: Metoprolol Tartrate 100 MG Tablet PO (08:27)
[2023-02-14] MEDS: Aspirin E.C. 81 MG Tablet PO (08:28)
[2023-02-14] MEDS: Losartan Potassium 25 MG Tablet PO (08:28)
[2023-02-14] MEDS: APIXABAN 5 MG TABLET PO (08:28)
--- NOTE | 2023-02-14 10:00 | EKG12_ITS ---
Test Reason : PCI Blood Pressure : / mmHG Vent. Rate : 086 BPM Atrial Rate : 271 BPM P-R Int : 000 ms QRS Dur : 130 ms QT Int : 410 ms P-R-T Axes : 092 027 256 degrees QTc Int : 490 ms Atrial flutter with variable A-V block Left bundle branch block Abnormal ECG When compared with ECG of 13-FEB-2023 05:27, MANUAL COMPARISON REQUIRED, DATA IS UNCONFIRMED Confirmed by SANTOSH DODSON, SYDNEY ([id number]), clinical editor ROSA VELASCO ([id number]) on 02/17/2023 1:43:57 PM Referred By: Confirmed By:SYDNEY FROST MD
--- NOTE | 2023-02-14 11:13 | CASEMGMT ---
LORI MEHTA called [facility] to verify cost of Eliquis and Brilinta, both are $45 copay. LORI MEHTA updated patient and provided savings card. Patient had no further questions or concerns at this time.
--- NOTE | 2023-02-14 11:43 | PHA.DC.MC ---
Pharmacy Service has performed discharge medication reconciliation and counseling for this patient. 1. APIXABAN 5MG PO BID 2. ASPIRIN 81MG PO DAILYCM 3. ATORVASTATIN 40MG PO QHS 4. LOSARTAN 25MG PO DAILY 5. METOPROLOL TARTRATE 100MG PO BID 6. TICAGRELOR 90MG PO BID The patient's discharge medication list was reviewed for discrepancies and discrepancies were resolved. Home Medications apixaban 5 mg tablet (Eliquis) 5 mg PO BID #60 tabs 02/14/23 aspirin 81 mg tablet,delayed release 81 mg PO DAILY@0800 #30 tabs 02/14/23 atorvastatin 40 mg tablet 40 mg PO QHS #30 tabs 02/14/23 losartan 25 mg tablet 25 mg PO DAILY #30 tabs 02/14/23 metoprolol tartrate 100 mg tablet 100 mg PO BID #60 tabs 02/14/23 ticagrelor 90 mg tablet (Brilinta) 90 mg PO BID #60 tabs 02/14/23 The patient was counseled on the following discharge medications and changes in medications for homegoing were reviewed. The Reason for Use, instructions for use, and potential side effects were reviewed for all new medications. The patient's questions regarding all of their medications were answered. The patient was able to verbally demonstrate an understanding of their discharge medications. Patient counseled by vice president pharmacyJonas.
--- NOTE | 2023-02-14 16:35 | DS.PCM_ITS ---
Providers Date of Admission: 02/11/23 Date of Discharge: 02/14/23 Primary Care Physician: Dr. Heriberto Gerber MD Consultations 02/11/23 13:07 Consult: Cardiology Routine Consulting Provider: Xavier Euceda Reason for Consult: nstemi EMERGENT Consult: Yes MD Notified: Yes Date Notified: 02/11/23 Time Notified: 12:20 Method of Notification: Text Reason For Visit: AFIB W/ RVR, NON STEMI Diagnosis Discharge Diagnosis (1) Atrial fibrillation with rapid ventricular response: Status: Acute Code(s): I48.91 - Unspecified atrial fibrillation (2) Non-ST elevated myocardial infarction (non-STEMI): Status: Acute Code(s): I21.4 - Non-ST elevation (NSTEMI) myocardial infarction Plan #New onset A-fib with RVR * Rate is improving though he still remains slightly tachycardic. Markus VASC score is at least 4 * Now off Cardizem drip. On metoprolol 100 mg twice daily. * Cardiology on board. * 2D echo showed EF of 38% * * #Non-STEMI * This may be due to a demand ischemia on account of A-fib with RVR or the non- STEMI could be the precursor to the A-fib with RVR * Aspirin and high intensity statin. * Cardiology on board. He had cardiac cath which showed high-grade right coronary artery lesion in the RCA for which he had PCI with stents placement. * On aspirin, Brilinta and high intensity statin * 2D echo showed EF of 38% and evidence of congestive heart failure * #Acute heart failure with reduced ejection fraction * 2D echo as above. Now on oral Lasix and metoprolol. Losartan added on. * To consider SG L2 inhibitor on outpatient basis as per cardiology. * * #History of CAD s/p CABG: * States he had CABG nearly 20 years ago. 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 * He states he does not take any medications and just exercises and takes care of himself. * cardiac cath findings as above. * Impaired glucose tolerance: * A1c 6.3. Meets the criteria for impaired glucose tolerance. Counseled on DASH diet and lifestyle changes. DVT prophylaxis: SC lovenox CODE STATUS:full code * * Disposition: for likely dc tomorrow once HR improves. Medications at Discharge Home Medications apixaban 5 mg tablet (Eliquis) 5 mg PO BID #60 tabs 02/14/23 aspirin 81 mg tablet,delayed release 81 mg PO DAILY@0800 #30 tabs 02/14/23 atorvastatin 40 mg tablet 40 mg PO QHS #30 tabs 02/14/23 furosemide 40 mg tablet (Lasix) 40 mg PO DAILY #30 tabs 02/14/23 losartan 25 mg tablet 25 mg PO DAILY #30 tabs 02/14/23 metoprolol tartrate 100 mg tablet 100 mg PO BID #60 tabs 02/14/23 ticagrelor 90 mg tablet (Brilinta) 90 mg PO BID #60 tabs 02/14/23 Hospital Course Operations None Procedures 2-D Echocardiogram and Cardiac catheterization Summary of Care Provided Minutes Spent on Discharge: 55 Hospital Course: ANISH RIVAS, is a 72 M with a PMH as outlined? who presents via the ED on 02/11/2023 with a complaint of palpitations. He he started having nausea and vomiting about a week ago. He also felt his heart racing.? He said the shortness of breath had been going on for about 2 weeks with associated palpitations.? It was worsened by exertion.? He denied any chest pain or dizziness or lighthea dedness.? He denied any increased sweating.? He had no other symptoms.? He said he had never had such symptoms before.? Review of systems otherwise negative. Vitals in the ED were BP of 145/101, with HR of 150, RR of 16 and temp of 97.6F as well as oxygen sats of 100% on room air. CBC showed Hb of 12.3, wbc of 10.3, platelets of 556; BMP was significant for Cr of 1.37, sodium of 135 and initial troponin of 3241.? Chest x-ray showed no acute cardiopulmonary process. EKG showed afib with RVR.? He was admitted to be managed for A-fib with RVR which is new onset as well as nonstemi. He was started on heparin drip. Cardiology was consulted. He was also started on Cardizem drip. Patient did have a history of CAD but said he had taken himself off his dual antiplatelets and statins about 15 years ago because he had parted with his with his print shop assistant who he felt was giving him too many meds. He had not been seen any print shop assistant since then. 2D echo showed EF of 38% and evidence of congestive heart failure. He had cardiac cath which showed a high-grade right coronary artery lesion in the RCA for which she had PCI with stents placement. He was placed on aspirin and Brilinta as well as high intensity statin. His medications were adjusted to help control his heart rate. Losartan was also added onto his medications. Patient gradually felt better and heart rate control improved. He was discharged home on 02/14/2023. He was given prescription for p.o. aspirin and high intensity statin as well as metoprolol and Lasix as well as losartan. He is to follow-up with his primary care doctor and follow-up with cardiology was consulted compliant with his medications. His A1c was 6.3 and so he was counseled on lifestyle changes and dietary changes as well. Patient was seen and examined prior to discharge. He had no complaints and had an uneventful night. Review of systems otherwise negative. Labs and vitals reviewed. Home medication reviewed and reconciled. Physical Exam Const alert, oriented x3 and no apparent distress General Appearance: cooperative, comfortable and well kempt Orientation / Consciousness: awake HEENT normocephalic, head/scalp atraumatic, hearing grossly normal bilaterally, moist oral mucous membranes and oropharynx normal Mouth: oral and palatal mucosa normal Eyes PERRL and EOMs intact bilaterally Neck no lymphadenopathy, supple and no JVD Lymph Lymphatic: no lymphadenopathy noted and no lymphedema noted Resp normal respiratory effort, normal air movement, no retractions, no use of accessory muscles and clear to auscultation bilaterally Cardio regular rate, S1 normal heart sound, S2 normal heart sound and no murmurs Cardio Narrative: In A-fib, rate controlled GI normal to inspection, nondistended, normoactive bowel sounds, soft to palpation, non-tender and non-distended Extremity normal to inspection, full ROM, normal capillary refill, no clubbing, cyanosis or edema and no calf tenderness Skin no rashes or lesions noted and no wounds General Skin Exam: no breakdown Neuro oriented x3, CN's II-XII intact bilaterally, moves all extremities and no focal motor deficits Sensorium / Orientation: awake and alert Motor Exam: strength 5/5 throughout and general weakness Psych thought process normal, cooperative and affect normal Appearance: appropriate Weight / BMI Weight Weight: 212 lb Body Mass Index (BMI) 28.7 ABG / Lab / Microbiology Data Result Diagrams: 02/14/23 04:50 02/14/23 04:50 Laboratory: Laboratory Results - last 24 hr 02/14/23 04:50: WBC 10.5, RBC 4.29 L, Hgb 12.3 L, Hct 37.3 L, MCV 86.9, MCH 28.7, MCHC 33.0, RDW Std Deviation 41.8, RDW Coeff of Kash 13.3, Plt Count 549 H, MPV 9.1, Immature Gran % (Auto) 0.500, Neut % (Auto) 77.6 H, Lymph % (Auto) 14.1 L, Morrison % (Auto) 5.6, Eos % (Auto) 1.7, Baso % (Auto) 0.5, Absolute Neuts (auto) 8.1 H, Absolute Lymphs (auto) 1.48, Nucleated RBC % 0 02/14/23 04:50: Sodium 136, Potassium 3.3 L, Chloride 102, Carbon Dioxide 26.0, Anion Gap 8, BUN 18, Creatinine 1.29, Estim Creat Clear Calc 55.14, Est GFR (MDRD) Af Amer 70, Est GFR (MDRD) Non-Af 58 L, BUN/Creatinine Ratio 14.0, Glucose 121 H, Calcium 9.1 D/C Instructions Discharge Diet: Low fat / Low cholesterol and 1800 Calorie Control Diet Discharge Activity: Return to Normal Activity Weight Bearing Status: Weight bearing as tolerated Call your doctor if you observe: Fever of 101 or Higher, Shortness of breath, Dizziness, Chest pain and Increased palpitations (irregular heartbeat) Meaningful Use Info Meaningful Use Diagnoses (Choose all that apply): AMI AMI/Post PCI/Angioplasty Aspirin given w/in 24hrs of arrival?: Yes ASA at discharge?: Yes Antiplatelet Therapy at Discharge:: Yes Statins at discharge?: Yes Isidro/ARB at discharge?: Yes Beta Nabeel at discharge?: Yes Done w/ Acute DE measure.: Yes Documented LVEF (%): 38 Discharge Plan Admission Admit Date/Time: 02/11/23 12:15 Primary Reason for Your Visit: afib with RVR, nonstemi Attending Provider: Aidee Stinson Primary Care Provider: Heriberto Gerber Consulting Providers: Xavier Euceda Instructions Patient Instructions: Heart Attack Dc Discharge Orders/Prescriptions Prescriptions: New aspirin 81 mg Tablet,Delayed Release (Dr/Ec) 81 mg PO DAILY@0800 Qty: 30 1RF Eliquis 5 mg Tablet 5 mg PO BID Qty: 60 1RF atorvastatin 40 mg Tablet 40 mg PO QHS Qty: 30 2RF metoprolol tartrate 100 mg Tablet 100 mg PO BID Qty: 60 2RF losartan 25 mg Tablet 25 mg PO DAILY Qty: 30 2RF Brilinta 90 mg Tablet 90 mg PO BID Qty: 60 2RF furosemide [Lasix] 40 mg tablet 40 mg PO DAILY Qty: 30 1RF Referrals / Follow Up: Xavier Euceda MD [Med Staff - Active Staff] - Within 2 Weeks Heriberto Gerber MD [Primary Care Provider] - Within 2 Weeks Disposition Disposition (needs filled in before D/C Order can be placed): Home, Self Care Charges/Coding Visit Charges Inpatient E&M: 25018 Disch Hosp >30min
== END 2023-02-14 12:45 | disposition home or self-care (01) | DRG 246 ==
LOC: ED 11:44 → PCU 02-12 08:06
PROVIDERS: Internal Medicine Cardiovascular Disease; Admitting Provider Student in an Organized Health Care Education/Training Program; Emergency Provider Emergency Medicine; PCP Family Medicine; Visit Provider Student in an Organized Health Care Education/Training Program
DX: I48.91 Unspecified atrial fibrillation (principal); I21.4 Non-ST elevation (NSTEMI) myocardial infarction; I50.21 Acute systolic (congestive) heart failure; I11.0 Hypertensive heart disease with heart failure; I25.10 Atherosclerotic heart disease of native coronary artery without angina pectoris; Z87.891 Personal history of nicotine dependence; Z79.01 Long term (current) use of anticoagulants; Z66 Do not resuscitate; Z95.1 Presence of aortocoronary bypass graft; R73.01 Impaired fasting glucose
CPT/HCPCS: 36415; 71045; 80048; 80053; 80061; 83036; 84443; 84484; 85025; 85610; 85730; 92928; 93005; 93306; 93458; 99152; 99153; 99284; C1894; J7030; J7040; Q9957; Q9967; A4216; C1725; C1769; C1874; C1887; C8929; C9600; J1940

== ENCOUNTER → 2023-08-13 | Outpatient (CLI) | payer MEDICARE, OTHER, SELFPAY ==
[2023-08-13 11:39] LABS: Anion Gap 4 (5-15); BUN 25 mg/dL (7-18); BUN/Creat Ratio 15.9 RATIO (10-20); Calcium,Total 9.6 mg/dL (8.5-10.1); Chloride 101 mmol/L (98-107); Cholesterol 289 mg/dL (200); Creatinine, Serum 1.57 mg/dL (0.70-1.30); EST Glomerular Filtration Rate 46 mL/min (>60); Est Glom Filt Rate - Afr Amer 56 mL/min (>60); Glucose 125 mg/dL (74-106); High Density Lipoprotein 33 mg/dL; PSA,Total - Annual Screen 0.67 ng/mL (0.00-4.00); Potassium 3.7 mmol/L (3.5-5.1); Sodium Level 136 mmol/L (136-145); Triglycerides 373 mg/dL; Very Low Density Lipoprotein 75 mg/dL (5-40)
== END | disposition home or self-care (01) ==
PROVIDERS: PCP Family Medicine; Referring Provider Family Medicine; Visit Provider Family Medicine
DX: I25.10 Atherosclerotic heart disease of native coronary artery without angina pectoris (principal); Z12.5 Encounter for screening for malignant neoplasm of prostate
CPT/HCPCS: 36415; 80048; 80061; 84153; G0103

== ENCOUNTER → 2023-11-19 | Outpatient (CLI) | payer MEDICARE, OTHER, SELFPAY ==
[2023-11-19 10:46] LABS: ALB/GLOB Ratio 0.9 RATIO (0.9-2.4); AST(SGOT) 19 U/L (15-37); Alanine Aminotransfer ALT/SGPT 24 U/L (16-61); Albumin, Serum 3.7 g/dL (3.2-5.0); Alkaline Phosphatase 76 U/L (45-117); Anion Gap 8 (5-15); BUN 17 mg/dL (7-18); Chloride 103 mmol/L (98-107); Cholesterol 197 mg/dL (200); Creatinine, Serum 1.42 mg/dL (0.70-1.30); EST Glomerular Filtration Rate 52 mL/min (>60); Est Glom Filt Rate - Afr Amer 63 mL/min (>60); Globulin 3.9 g/dL (2.2-4.2); Glucose 105 mg/dL (74-106); High Density Lipoprotein 35 mg/dL; Potassium 4.1 mmol/L (3.5-5.1); Protein, Total 7.6 g/dL (6.4-8.2); Sodium Level 139 mmol/L (136-145); Triglycerides 166 mg/dL; Very Low Density Lipoprotein 33 mg/dL (5-40)
== END | disposition home or self-care (01) ==
PROVIDERS: PCP Family Medicine; Referring Provider Family Medicine; Visit Provider Family Medicine
DX: I10 Essential (primary) hypertension (principal)
CPT/HCPCS: 36415; 80053; 80061

== ENCOUNTER → 2024-02-20 | Outpatient (CLI) | payer MEDICARE, OTHER, SELFPAY ==
[2024-02-20 17:50] LABS: Anion Gap 8 (5-15); BUN 18 mg/dL (7-18); BUN/Creat Ratio 14.6 RATIO (10-20); Chloride 101 mmol/L (98-107); Creatinine, Serum 1.23 mg/dL (0.70-1.30); EST Glomerular Filtration Rate 61 mL/min (>60); Est Glom Filt Rate - Afr Amer 74 mL/min (>60); Glucose 111 mg/dL (74-106); Potassium 3.8 mmol/L (3.5-5.1); Sodium Level 135 mmol/L (136-145)
== END | disposition home or self-care (01) ==
PROVIDERS: PCP Family Medicine; Referring Provider Family Medicine; Visit Provider Family Medicine
DX: I10 Essential (primary) hypertension (principal)
CPT/HCPCS: 36415; 80048

== ENCOUNTER → 2024-07-23 | Outpatient (CLI) | payer MEDICARE, OTHER, SELFPAY ==
[2024-07-23 15:28] LABS: AST(SGOT) 18 U/L (15-37); Alanine Aminotransfer ALT/SGPT 23 U/L (16-61); Albumin, Serum 3.6 g/dL (3.2-5.0); Alkaline Phosphatase 89 U/L (45-117); Anion Gap 4 (5-15); BUN 21 mg/dL (7-18); BUN/Creat Ratio 16.3 RATIO (10-20); Bilirubin, Direct 0.12 mg/dL (0.00-0.30); Calcium,Total 8.7 mg/dL (8.5-10.1); Chloride 103 mmol/L (98-107); Cholesterol 290 mg/dL (200); Creatinine, Serum 1.29 mg/dL (0.70-1.30); EST Glomerular Filtration Rate 58 mL/min (>60); Est Glom Filt Rate - Afr Amer 70 mL/min (>60); Glucose 112 mg/dL (74-106); High Density Lipoprotein 33 mg/dL; Potassium 3.8 mmol/L (3.5-5.1); Protein, Total 7.6 g/dL (6.4-8.2); Sodium Level 136 mmol/L (136-145); Triglycerides 369 mg/dL; Very Low Density Lipoprotein 74 mg/dL (5-40)
== END | disposition home or self-care (01) ==
LOC: LAB 14:14
PROVIDERS: Internal Medicine Cardiovascular Disease; PCP Family Medicine; Referring Provider Nurse Practitioner Family; Visit Provider Nurse Practitioner Family
DX: E78.2 Mixed hyperlipidemia (principal)
CPT/HCPCS: 36415; 80048; 80061; 80076

== ENCOUNTER → 2024-08-27 | Outpatient (CLI) | payer MEDICARE, OTHER, SELFPAY ==
--- NOTE | 2024-08-27 14:25 | RAD_ITS ---
EXAM: XR LUMBOSACRAL SPINE, 2 OR 3 VIEWS CLINICAL INDICATION: low back pain, neurogenic claudication TECHNIQUE: Frontal and lateral views of the lumbar spine and sacrum. COMPARISON: No relevant prior studies available. FINDINGS: VERTEBRAE: There is bony neural foraminal narrowing at L4-5 and L5-S1. There are osteophytes at multiple levels. Preserved vertebral body height. No fracture. No spondylolisthesis. Preservation of the normal lumbar lordosis. No significant facet arthropathy. DISC SPACES: There is disc space narrowing from L1 through S1. GASTROINTESTINAL TRACT: Unremarkable as visualized. Included bowel gas pattern is non-obstructive. RAD/Lumbar Spine 2 or 3 Views IMPRESSION: Multilevel degenerative change with disc space narrowing and bony neural foraminal narrowing. There is no acute osseous abnormality. Electronically Signed: Samuel Brewer MD at 0:13 EST ,
== END | disposition home or self-care (01) ==
LOC: RAD 14:22
PROVIDERS: PCP Family Medicine; Referring Provider Physician Assistant; Visit Provider Physician Assistant
DX: I73.9 Peripheral vascular disease, unspecified (principal); M54.50 Low back pain, unspecified
CPT/HCPCS: 72100

== ENCOUNTER → 2024-09-16 | Outpatient (CLI) | payer MEDICARE, OTHER, SELFPAY ==
--- NOTE | 2024-09-16 07:44 | ART_ITS ---
Reason For Study: PVD Procedure A bilateral lower extremity continuous wave Doppler with analog waveform analysis,segmental pressures,and ankle brachial indexes with exercise. Left Segmental Pressures Left brachial= 166mmHg. Left low thigh = 206mmHg. Left calf = 121mmHg. Left posterior tibial artery = 125mmHg. Left dorsalis pedis artery = 110mmHg. Left digit = 86 mmHg. The left dorsalis pedis waveforms are biphasic. The left posterior tibial artery waveforms are biphasic. Right Segmental Pressures Right brachial= 165mmHg. Right low thigh = 214mmHg. Right calf = 157mmHg. Right posterior tibial artery = 147mmHg. Right dorsalis pedis artery = 138mmHg. Right digit = 117 mmHg. The right posterior tibial artery waveforms are biphasic. The right dorsalis pedis waveforms are biphasic. Indices The right ankle brachial index by the posterior tibial artery is 0.89. The right ankle brachial index by the dorsalis pedis is 0.83. The right digital-brachial index is 0.70. The right post exercise ankle brachial index is 0.66. The left ankle brachial index by the posterior tibial artery is 0.75. The left ankle brachial index by the dorsalis pedis is 0.66. The left digital-brachial index is 0.52. The left post exercise ankle brachial index is 0.61. VL/Lower Ext Art Exam w/ Exercise Interpretation Summary Right GEETA 0.89, moderate arterial insufficiency. Doppler/PVR waveforms and segm ental pressures reveal distal SFA/popliteal disease. Right lower extremity with abnormal response to exercise and post exercise GEETA remaining in the moderate category. Left GEETA 0.75, moderate arterial insufficiency. Doppler/PVR waveforms and segme ntal pressures reveal distal SFA/popliteal disease. Left lower extremity with no significant change in response to exercise Ordering Physician: Tania Spence Referring Physician: Heriberto Gerber Performed By: Terrance Fleming RVT
--- NOTE | 2024-09-16 07:44 | CDU_ITS ---
Reason For Study: Carotid Artery Bruit Rt. Velocities/BP Lt. Velocities/BP Prox CCA 97.7/22.8 cm/sec. Prox CCA 106.3/22.8 cm/sec. Mid CCA 96.5/22.8 cm/sec. Mid CCA 96.5/19.2 cm/sec. Dist CCA 90.4/19.2 cm/sec. Dist CCA 106.3/24.1 cm/sec. Prox ICA 75.1/17.6 cm/sec. Prox ICA 87.5/27.0 cm/sec. Mid ICA 72.8/22.1 cm/sec. Mid ICA 69.9/21.5 cm/sec. Dist ICA 84.1/26.6 cm/sec. Dist ICA 71.2/20.6 cm/sec. Rt. ICA/CCA = 0.9. Lt. ICA/CCA = 0.9. Prox ECA 134.4/15.7 cm/sec. Prox ECA 245.6/29.8 cm/sec. Rt. Vert. 81.8 cm/sec. Lt. Vert. 38.9/9.2 cm/sec. Right Extracranial There is homogeneous, smooth atherosclerotic plaque noted in the right common carotid artery. There is homogeneous, smooth atherosclerotic plaque noted in the right internal carotid artery. There is homogeneous, smooth atherosclerotic plaque noted in the right external carotid artery. Antegrade flow is noted in the right vertebral artery. Left Extracranial There is homogeneous, smooth atherosclerotic plaque noted in the left common carotid artery. There is homogeneous, smooth atherosclerotic plaque noted in the left internal carotid artery. There is heterogeneous, irregular atherosclerotic plaque noted in the left external carotid artery. Antegrade flow is noted in the left vertebral artery. There is heterogeneous, irregular atherosclerotic plaque noted in the left bulb. Procedure Carotid Duplex 48628. This is a Carotid Duplex examination using B-mode, color flow and specral Doppler. The exam was diagnostic. Exam performed in department. VL/Carotid Duplex Ultrasound Interpretation Summary Mild (<50%) stenosis right extracranial internal carotid. Mild (<50%) stenosis left extracranial internal carotid. Patent and antegrade vertebrals bilaterally. Ordering Physician: Tania Spence Referring Physician: Heriberto Gerber Performed By: Terrance Fleming RVT
== END | disposition home or self-care (01) ==
LOC: CVS 07:44
PROVIDERS: PCP Family Medicine; Referring Provider Physician Assistant; Visit Provider Physician Assistant
DX: I73.9 Peripheral vascular disease, unspecified (principal); R09.89 Other specified symptoms and signs involving the circulatory and respiratory systems
CPT/HCPCS: 93880; 93924

== ENCOUNTER → 2024-10-15 | Outpatient (CLI) | payer MEDICARE, OTHER, SELFPAY ==
[2024-10-15 08:07] LABS: BUN 17 mg/dL (7-18); Creatinine, Serum 1.36 mg/dL (0.70-1.30); EST Glomerular Filtration Rate 54 mL/min (>60); Est Glom Filt Rate - Afr Amer 66 mL/min (>60)
[2024-10-15 08:09] LABS: AST(SGOT) 16 U/L (15-37); Alanine Aminotransfer ALT/SGPT 32 U/L (16-61); Albumin, Serum 3.7 g/dL (3.2-5.0); Alkaline Phosphatase 78 U/L (45-117); Bilirubin, Direct 0.17 mg/dL (0.00-0.30); Cholesterol 253 mg/dL (200); Globulin 4.2 g/dL (2.2-4.2); High Density Lipoprotein 38 mg/dL; Protein, Total 7.9 g/dL (6.4-8.2); Triglycerides 212 mg/dL; Very Low Density Lipoprotein 42 mg/dL (5-40)
== END | disposition home or self-care (01) ==
PROVIDERS: Internal Medicine Cardiovascular Disease; PCP Family Medicine; Referring Provider Surgery Vascular Surgery; Visit Provider Surgery Vascular Surgery
DX: I70.213 Atherosclerosis of native arteries of extremities with intermittent claudication, bilateral legs (principal); I10 Essential (primary) hypertension; E78.5 Hyperlipidemia, unspecified
CPT/HCPCS: 36415; 80061; 80076; 82565; 84520

== ENCOUNTER → 2024-10-20 | Outpatient (CLI) | payer MEDICARE, OTHER, SELFPAY ==
--- NOTE | 2024-10-20 16:27 | CT_ITS ---
PROCEDURE: CTA ABD W/RUNOFF W/WO CONTRAST REASON FOR EXAM: Left lower extremity claudication. TECHNIQUE: CTA imaging of the abdomen, pelvis, and lower extremities with intravenous contrast. 3D reconstructions. IV CONTRAST: 100 mL of Isovue-300 70 was injected intravenously. COMPARISON: None. FINDINGS: Aorta: Mild mixed calcified and soft plaque identified. No abdominal aortic aneurysm. Celiac: Normal. SMA: Normal. TABATHA : Normal. Right Renal: Normal. Left Renal: Normal. RIGHT Iliac Arteries: Common Iliac: Mild mixed calcified and soft plaque identified. External Iliac: Normal. Internal Iliac: Normal. LEFT Iliac Arteries: Common Iliac: Mild mixed calcified and soft plaque identified. External Iliac: Normal. Internal Iliac: Normal. RIGHT Lower Extremity: Common Femoral: Normal. Superficial Femoral: Normal. Deep Femoral: Normal. Popliteal: Short-segment occlusion. Anterior Tibial: Not visualized Tibioperoneal Trunk: Atherosclerotic plaque formation Posterior Tibial: Normal. Peroneal: Normal. Dorsalis Pedis: Not opacified. LEFT Lower Extremity: Common Femoral: Normal. Superficial Femoral: Normal. Deep Femoral: Normal. Popliteal: Occlusion of the popliteal artery at its origin. Popliteal cyst along the posterior medial aspect of the left knee. Anterior Tibial: Not visualized Tibioperoneal Trunk: Not visualized Posterior Tibial: Normal. Peroneal: Normal. Dorsalis Pedis: Not opacified. Other Stents/Grafts: None. Other Findings: Mild degree of linear scarring at the lung bases more prominent on the left side. Findings suggestive of a 2.5 cm nodule in the left lower lobe. A CT scan of the chest is recommended for further evaluation. Tiny cysts seen in the right lobe of the liver. Sigmoid diverticulosis. Small bilateral inguinal hernias containing fat greater on the left side. Bone windows are unremarkable. CT/CTA Abd w/Runoff W/WO Contrast IMPRESSION: Mild degree of atherosclerotic plaque formation of the aorta as well as both co mmon iliac arteries. Short-segment occlusion of the right popliteal artery with reconstitution of th e tibioperoneal trunk with two-vessel runoff in the right leg namely the peroneal and posterior tibial arteries. Occlusion of the distal portion of the superficial femoral artery at the origin of the left popliteal artery. Nonvisualization of the tibioperoneal trunk. Two-vessel runoff in the left leg namely the poste rior tibial and peroneal arteries. Nodular density at the base of the left lung as described. Correlation with CT scan of the chest recommended. One or more dose reduction techniques were used (e.g., Automated exposure contr ol, adjustment of the mA and/or kV according to patient size, use of iterative reconstruction technique). Reading Location: [facility]
== END | disposition home or self-care (01) ==
LOC: CT 16:25
PROVIDERS: PCP Family Medicine; Referring Provider Surgery Vascular Surgery; Visit Provider Surgery Vascular Surgery
DX: I70.213 Atherosclerosis of native arteries of extremities with intermittent claudication, bilateral legs (principal); I48.0 Paroxysmal atrial fibrillation; I10 Essential (primary) hypertension; E78.5 Hyperlipidemia, unspecified
CPT/HCPCS: 75635; Q9967

== ENCOUNTER → 2025-04-01 | Outpatient (CLI) | payer MEDICARE, OTHER, SELFPAY ==
--- NOTE | 2025-04-01 07:35 | ART_ITS ---
Reason For Study Reason For Study: Atherosclerosis Procedure A bilateral lower extremity continuous wave Doppler with analog waveform analysis and ankle brachial indexes. Left Segmental Pressures Left brachial= 195mmHg. Left posterior tibial artery = 127mmHg. Left dorsalis pedis artery = 124mmHg. Left digit = 102 mmHg. The left dorsalis pedis waveforms are biphasic. The left posterior tibial artery waveforms are biphasic. Right Segmental Pressures Right brachial= 196mmHg. Right posterior tibial artery = 123mmHg. Right dorsalis pedis artery = 161mmHg. Right digit = 115 mmHg. The right dorsalis pedis waveforms are biphasic. The right posterior tibial artery waveforms are biphasic. Indices The right ankle brachial index by the dorsalis pedis is 0.82. The right ankle brachial index by the posterior tibial artery is 0.63. The right digital-brachial index is 0.59. The left ankle brachial index by the dorsalis pedis is 0.63. The left ankle brachial index by the posterior tibial artery is 0.65. The left digital-brachial index is 0.52. VL/Ankle Brachial Index Interpretation Summary Resting ankle-brachial indices appear moderately abnormal bilaterally. Ordering Physician: Eliezer Canada Referring Physician: Heriberto Gerber Performed By: NOY CORONADO [facility]
--- OUTSIDE RECORDS SUMMARY | 2025-04-01 07:40 | XMS RPT_ITS | CCD ---
Author Organization [facility] Care Team Providers Care Builder'S Labourer Name Role Phone CHADD COREY Admitting Unavailable No, Physician Primary Care Provider Unavailabl e SIRIA, TEDDY Admitting Unavailabl e NO, PHYSICIAN Primary Care Unavailable KINSEY, XAVIER S Referring Unavailable SIRIA, TEDDY Admitting Unavailabl e NO, PHYSICIAN Primary Care Unavailable KINSEY, XAVIER S Referring Unavailable NO, PHYSICIAN Primary Care Unavailable SIRIA, TEDDY Admitting Unavailabl e KINSEY, XAVIER S Referring Unavailable NO, PHYSICIAN Primary Care Unavailable SIRIA, TEDDY Admitting Unavailabl e KINSEY, XAVIER S Referring Unavailable NO, PHYSICIAN Primary Care Unavailable SIRIA, TEDDY Admitting Unavailabl e KINSEY, XAVIER S Referring Unavailable SIRIA, TEDDY Admitting Unavailabl e NO, PHYSICIAN Primary Care Unavailable KINSEY, XAVIER S Referring Unavailable NO, PHYSICIAN Primary Care Unavailable KINSEY, XAVIER S Referring Unavailable SIRIA, TEDDY Admitting Unavailabl e SIRIA, TEDDY Admitting Unavailabl e KINSEY, XAVIER S Referring Unavailable NO, PHYSICIAN Primary Care Unavailable NO, PHYSICIAN Primary Care Unavailable KINSEY, XAVIER S Referring Unavailable SIRIA, TEDDY Admitting Unavailabl e NO, PHYSICIAN Primary Care Unavailable KINSEY, XAVIER S Referring Unavailable SIRIA, TEDDY Admitting Unavailabl e NO, PHYSICIAN Primary Care Unavailable KINSEY, XAVIER S Referring Unavailable SIRIA, TEDDY Admitting Unavailabl e NO, PHYSICIAN Primary Care Unavailable KINSEY, XAVIER S Referring Unavailable SIRIA, TEDDY Admitting Unavailabl e NO, PHYSICIAN Primary Care Unavailable SIRIA, TEDDY Admitting Unavailabl e KINSEY, XAVIER S Referring Unavailable NO, PHYSICIAN Primary Care Unavailable SIRIA, TEDDY Admitting Unavailabl e KINSEY, XAVIER S Referring Unavailable NO, PHYSICIAN Primary Care Unavailable SIRIA, TEDDY Admitting Unavailabl e KINSEY, XAVIER S Referring Unavailable NO, PHYSICIAN Primary Care Unavailable SIRIA, TEDDY Admitting Unavailabl e KINSEY, XAVIER S Referring Unavailable SIRIA, TEDDY Admitting Unavailabl e KINSEY, XAVIER S Referring Unavailable NO, PHYSICIAN Primary Care Unavailable NO, PHYSICIAN Primary Care Unavailable SIRIA, TEDDY Admitting Unavailabl e KINSEY, XAVIER S Referring Unavailable NO, PHYSICIAN Primary Care Unavailable SIRIA, TEDDY Admitting Unavailabl e KINSEY, XAVIER S Referring Unavailable SIRIA, TEDDY Admitting Unavailabl e NO, PHYSICIAN Primary Care Unavailable KINSEY, XAVIER S Referring Unavailable NO, PHYSICIAN Primary Care Unavailable KINSEY, XAVIER S Referring Unavailable SIRIA, TEDDY Admitting Unavailabl e NO, PHYSICIAN Primary Care Unavailable SIRIA, TEDDY Admitting Unavailabl e KINSEY, XAVIER S Referring Unavailable SIRIA, TEDDY Admitting Unavailabl e NO, PHYSICIAN Primary Care Unavailable KINSEY, XAVIER S Referring Unavailable NO, PHYSICIAN Primary Care Unavailable KINSEY, XAVIER S Referring Unavailable SIRIA, TEDDY Admitting Unavailabl e SIRIA, TEDDY Admitting Unavailabl e NO, PHYSICIAN Primary Care Unavailable KINSEY, XAVIER S Referring Unavailable SIRIA, TEDDY Admitting Unavailabl e NO, PHYSICIAN Primary Care Unavailable KINSEY, XAVIER S Referring Unavailable SIRIA, TEDDY Admitting Unavailabl e NO, PHYSICIAN Primary Care Unavailable KINSEY, XAVIER S Referring Unavailable KINSEY, XAVIER S Referring Unavailable JAYNE ALFORD Attending Unavailab le KINSEY, XAVIER S Admitting Unavailable NO, PHYSICIAN Primary Care Unavailable SIRIA, TEDDY Admitting Unavailabl e KINSYE, XAVIER S Referring Unavailable NO, PHYSICIAN Primary Care Unavailable SIRIA, TEDDY Admitting Unavailabl e KINSEY, XAVIER S Referring Unavailable NO, PHYSICIAN Primary Care Unavailable NO, PHYSICIAN Primary Care Unavailable SIRIA, TEDDY Admitting Unavailabl e KINSEY, XAVIER S Referring Unavailable SIRIA, TEDDY Admitting Unavailabl e NO, PHYSICIAN Primary Care Unavailable KINSEY, XAVIER S Referring Unavailable SIRIA, TEDDY Admitting Unavailabl e NO, PHYSICIAN Primary Care Unavailable KINSEY, XAVIER S Referring Unavailable NO, PHYSICIAN Primary Care Unavailable KINSEY, XAVIER S Referring Unavailable SIRIA, TEDDY Admitting Unavailabl e NO, PHYSICIAN Primary Care Unavailable KINSEY, XAVIER S Referring Unavailable SIRIA, TEDDY Admitting Unavailabl e NO, PHYSICIAN Primary Care Unavailable KINSEY, XAVIER S Referring Unavailable SIRIA, TEDDY Admitting Unavailabl e SIRIA, TEDDY Admitting Unavailabl e NO, PHYSICIAN Primary Care Unavailable KINSEY, XAVIER S Referring Unavailable NO, PHYSICIAN Primary Care Unavailable SIRIA, TEDDY Admitting Unavailabl e KINSEY, XAVIER S Referring Unavailable Dr. Heriberto Gerber Primary Care Provider [phone] Dr. Heriberto Gerber Referring Provider Roof FILAMENT COIL WINDER, FILAMENT COIL WINDER-C Ramon Reid Attending Provider VERONA BEVERLY Attending Unavailabl e NO, PHYSICIAN Primary Care Unavailable NO, PHYSICIAN Primary Care Unavailable GINNY, JUAN FRANCISCO M Admitting Unavailable GINNY, JUAN FRANCISCO M Referring Unavailable NO, PHYSICIAN Primary Care Unavailable GINNY JUAN FRANCISCO M Attending Unavailable SIRIA, TEDDY Attending Unavailabl e NO, PHYSICIAN Primary Care Unavailable SIRIA, TEDDY Attending Unavailabl e NO, PHYSICIAN Primary Care Unavailable SIRIA, TEDDY Attending Unavailabl e NO, PHYSICIAN Primary Care Unavailable Kinsey, [place] Referring Unavailable Spence, Tania Attending Unavailable Gerber, Heriberto Primary Care Unavailable Gerber, Heriberto Primary Care Unavailable Spence, Tania Referring Unavailable Raad Leonard Attending Unavailable Gerber, Heriberto Referring Unavailable Gerber, Heriberto Primary Care Unavailable Spence, Tania Attending Unavailable Gerber, Heriberto Referring Unavailable Kinsey, [place] Attending Unavailable Gerber, Heriberto Primary Care Unavailable Spence, Tania Attending Unavailable Spence, Tania Referring Unavailable Gerber, Heriberto Primary Care Unavailable Gerber, Heriberto Primary Care Unavailable Eliezer Canada Referring Unavailable Eliezer Canada Attending Unavailable Ramon Verdugo NP Attending Unavailable Ramon Verdugo NP Referring Unavailable Heriberto Gerber Primary Care Unavailable Heriberto Gerber Primary Care Unavailable Eliezer Canada Attending Unavailable Eliezer Canada Referring Unavailable Eliezer Canada Attending Unavailable Eliezer Canada Referring Unavailable Heriberto Gerber Primary Care Unavailable Tania pSence Attending Unavailable Tania Spence Referring Unavailable Heriberto Gerber Primary Care Unavailable Allergies Allergy Classification Reported Allergen(s) Allergy Type Date of Onset Reaction(s) Facility (2 sources) Opioids - Morphine Analogues Propensity to adverse reactions 3 Hallucinations [facility] (1 source) Opioids - Morphine Analogues Drug allergy (disorder) 4 [facility] Repository Medications Current Medications Medication Drug Class(es) Dates Sig (Normalized) Sig (Original) apixaban 5 mg oral tablet (4 sources) Factor Xa Inhibitor Start: 02-14-2023 End: 04-10-2023 take 1 tablet by mouth twice daily Apixaban (Eliquis) 5 mg tablet Active 5 MG PO TWICE A DAY April 10, 2023 12:11pm atorvastatin 40 mg oral tablet (4 sources) HMG-CoA Reductase Inhibitor Start: 02-14-2023 End: 04-10-2023 take 40 mg by mouth at bedtime Atorvastatin Active 40 MG PO AT BEDTIME April 10, 2023 12:11pm empagliflozin 10 mg oral tablet (2 sources) Sodium-Glucose Cotransporter 2 Inhibitor Start: 02-28-2023 take 1 tablet by mouth once daily Empagliflozin (Jardiance) 10 mg tablet Active 10 MG PO DAILY February 28, 2023 12:00am furosemide 40 mg oral tablet (8 sources) Loop Diuretic Start: 03-07-2023 End: 04-10-2023 take 1 tablet by mouth once daily Furosemide (Lasix) 40 mg tablet Active 40 MG PO DAILY April 10, 2023 12:11pm Start: 02-17-2023 End: 03-07-2023 take 1 tablet by mouth twice daily Furosemide (Lasix) 40 mg tablet Discontinued 40 MG PO TWICE A DAY 60 February 17, 2023 10:03am March 07, 2023 1:51pm Start: 02-14-2023 End: 02-17-2023 take 1 tablet by mouth once daily Furosemide (Lasix) 40 mg tablet Discontinued 40 MG PO DAILY February 14, 2023 12:00am February 17, 2023 10:03am losartan potassium 50 mg oral tablet (6 sources) Angiotensin 2 Receptor Nabeel Start: 04-10-2023 take 50 mg by mouth twice daily Losartan Active 50 MG PO TWICE A DAY 180 April 10, 2023 12:10pm Start: 02-17-2023 End: 04-10-2023 take 50 mg by mouth once daily Losartan Discontinued 5 0 MG PO DAILY February 17, 2023 12:00am April 10, 2023 12:12pm Start: 02-14-2023 End: 02-17-2023 take 25 mg by mouth once daily Losartan Discontinued 2 5 MG PO DAILY February 14, 2023 12:00am February 17, 2023 10:02am metoprolol tartrate 100 mg oral tablet (4 sources) beta-Adrenergic Nabeel Start: 02-14-2023 End: 04-10-2023 take 100 mg by mouth twice daily Metoprolol Tartrate Active 100 MG PO TWICE A DAY 180 April 10, 2023 12:12pm nitroglycerin 0.4 mg sublingual tablet (2 sources) Nitrate Vasodilator Start: 02-19-2023 Nitroglycerin Active 0.4 MG SL every 5 to 15 minutes February 19, 2023 12:00am do not exceed 3 doses per episode ticagrelor 90 mg oral tablet (4 sources) Start: 02-14-2023 End: 04-10-2023 take 1 tablet by mouth twice daily Ticagrelor (Brilinta) 90 mg tablet Active 90 MG PO TWICE A DAY 180 April 10, 2023 12:12pm Completed/Discontinued Medications Medication Drug Class(es) Dates Sig (Normalized) Sig (Original) aspirin 81 mg delayed release oral tablet (2 sources) Platelet Aggregation Inhibitor, Nonsteroidal Anti-inflammatory Drug Start: 02-14-2023 End: 03-07-2023 take 81 mg by mouth once daily Aspirin Discontinued 81 MG PO DAILY@0800 February 14, 2023 12:00am March 07, 2023 2:06pm dapagliflozin 10 mg oral tablet (2 sources) Sodium-Glucose Cotransporter 2 Inhibitor Start: 02-19-2023 End: 02-25-2023 take 1 tablet by mouth once daily Dapagliflozin Propanediol (Farxiga) 10 mg tablet Discontinued 10 MG PO DAILY 90 February 19, 2023 12:00am February 25, 2023 6:42pm Problems Active Problems Problem Classification Problem Date Documented Date Episodic/Chronic Acute myocardial infarction (6 sources) Myocardial infarction; Translations: [Non-ST elevation (NSTEMI) myocardial infarction] Onset: 03-04-2023 02-11-2023 Chronic Cardiac dysrhythmias (7 sources) Atrial fibrillation with rapid ventricular response; Translations: [Unspecified atrial fibrillation] 02-11-2023 Chronic Congestive heart failure; nonhypertensive (5 sources) Heart failure with reduced ejection fraction; Translations: [Unspecified systolic (congestive) heart failure] 02-21-2023 Chronic Coronary atherosclerosis and other heart disease (5 sources) Atherosclerotic heart disease of [place] coronary artery without angina pectoris; Translations: [Coronary atherosclerosis] Onset: 03-04-2023 Chronic Disorders of lipid metabolism (4 sources) Mixed hyperlipidemia; Translations: [Mixed hyperlipidemia] Onset: 08-19-2024 02-19-2023 Chronic Essential hypertension (3 sources) Benign hypertension; Translations: [Essential (primary) hypertension] 03-07-2023 Chronic Peripheral and visceral atherosclerosis (5 sources) Atherosclerosis of [place] arteries of extremities with rest pain, left leg; Translations: [Atherosclerosis of [place] arteries of extremities with intermittent claudication, left leg] Onset: 10-08-2024 Chronic Unclassified (1 source) Low back pain, unspecified; Translations: [Low back pain, unspecified] Onset: 08-27-2024 Past or Other Problems Problem Classification Problem Date Documented Da te Episodic/Chronic Coronary atherosclerosis and other heart disease (20 sources) Patient post percutaneous transluminal coronary angioplasty; Translations: [Coronary angioplasty status] Onset: 09-08-1998 03-17-2023 Episodic Other circulatory disease (1 source) Other specified symptoms and signs involving the circulatory and respiratory systems; Translations: [Other specified symptoms and signs involving the circulatory and respiratory systems] Onset: 08-27-2024 Episodic Other non-traumatic joint disorders (2 sources) Pain in left knee; Translations: [Pain in left knee] Onset: 01-29-2023 Episodic Residual codes; unclassified (2 sources) Pain Onset: 01-29-2023 Episodic Results Test Name Value Interpretation Reference Range Facility CTA Abd w/Runoff W/WO Contra ston 10-20-2024 CTA Abd w/Runoff W/WO Contrast [facility] Imaging Services [address] [place] [address] CTA Abd w/Runoff W/WO Contrast MR#: [id number] Acct: [id number] Name: ANISH RIVAS Rep #: [id number] : 1950 M 74 From: Eric wang MD PCP: Dr. Heriberto Gerber MD Status: REG CLI Study: CTA Abd w/Runoff W/WO Contrast Date of Exam: 0 10/20/24 Exam# [id number] Ordering Dr: Eliezer Canada MD PROCEDURE: CTA ABD W/RUNOFF W/WO CONTRAST REASON FOR EXAM: Left lower extremity claudication. TECHNIQUE: CTA imaging of the abdomen, pelvis, and lower extremities with intravenous contrast. 3D reconstructions. IV CONTRAST: 100 mL of Isovue-300 70 was injected intravenously. COMPARISON: None. FINDINGS: Aorta: Mild mixed calcified and soft plaque identified. No abdominal aortic aneurysm. Celiac: Normal. SMA: Normal. TABATHA : Normal. Right Renal: Normal. Left Renal: Normal. RIGHT Iliac Arteries: Common Iliac: Mild mixed calcified and soft plaque identified. External Iliac: Normal. Internal Iliac: Normal. LEFT Iliac Arteries: Common Iliac: Mild mixed calcified and soft plaque identified. External Iliac: Normal. Internal Iliac: Normal. RIGHT Lower Extremity: Common Femoral: Normal. Superficial Femoral: Normal. Deep Femoral: Normal. Popliteal: Short-segment occlusion. Anterior Tibial: Not visualized Tibioperoneal Trunk: Atherosclerotic plaque formation Posterior Tibial: Normal. Peroneal: Normal. Dorsalis Pedis: Not opacified. LEFT Lower Extremity: Common Femoral: Normal. Superficial Femoral: Normal. Deep Femoral: Normal. Popliteal: Occlusion of the popliteal artery at its origin. Popliteal cyst along the posterior medial aspect of the left knee. Anterior Tibial: Not visualized Tibioperoneal Trunk: Not visualized Posterior Tibial: Normal. Peroneal: Normal. Dorsalis Pedis: Not opacified. Other Stents/Grafts: None. Other Findings: Mild degree of linear scarring at the lung bases more prominent on the left side. Findings suggestive of a 2.5 cm nodule in the left lower lobe. A CT scan of the chest is recommended for further evaluation. Tiny cysts seen in the right lobe of the liver. Sigmoid diverticulosis. Small bilateral inguinal hernias containing fat greater on the left side. Bone windows are unremarkable. CT/CTA Abd w/Runoff W/WO Contrast IMPRESSION: Mild degree of atherosclerotic plaque formation of the aorta as well as both common iliac arteries. Short-segment occlusion of the right popliteal artery with reconstitution of the tibioperoneal trunk with two-vessel runoff in the right leg namely the peroneal and posterior tibial arteries. Occlusion of the distal portion of the superficial femoral artery at the origin of the left popliteal artery. Nonvisualization of the tibioperoneal trunk. Two-vessel runoff in the left leg namely the posterior tibial and peroneal arteries. Nodular density at the base of the left lung as described. Correlation with CT scan of the chest recommended. One or more dose reduction techniques were used (e.g., Automated exposure control, adjustment of the mA and/or kV according to patient size, use of iterative reconstruction technique). Reading Location: [facility] CC: Dr. Eliezer Canada MD; Dr. Heriberto Gerber MD Forest Management Professor: Signed Normal [facility] BUNon 2024 Urea nitrogen [Mass/Vol] 17 mg/dL Normal 7-18 [facility] Comment on above: Performed By: #### L 501.1000, L501.1105 #### [facility] [address] [place], [address] Lipid Profileon 2024 Cholesterol [Mass/Vol] 253 mg/dL High 200 [facility] Comment on above: Result Comment: <200 mg/dL Desirable 200-240 mg/dL Borderline >240 mg/dL High Risk Performed By: #### L 500.4100, L500.3400 #### [facility] [address] [place], [address] Cholesterol in HDL [Mass/Vol] 38 mg/dL Low [facility] Comment on above: Result Comment: The drugs N-Acetylcysteine and Metamizole may falsely depress this assay. Reference Range HDL <40 mg/dL Low HDL Cholesterol HDL >or= 60 mg/dL High HDL Cholesterol Performed By: #### L 500.4100, L500.3400 #### [facility] [address] [place], [address] Cholesterol in LDL [Mass/Vol] 173 mg/dL High 0-130 [facility] Comment on above: Performed By: #### L 500.4100, L500.3400 #### [facility] [address] [place], [address] Cholesterol in VLDL [Mass/Vol] 42 mg/dL High 5-40 [facility] Comment on above: Performed By: #### L 500.4100, L500.3400 #### [facility] [address] [place], [address] Triglyceride [Mass/Vol] 212 mg/dL High [facility] Comment on above: Result Comment: The drugs N-Acetylcysteine and Metamizole may falsely depress this assay. Serum Triglycerides Reference Interval Normal <150 mg/dL Borderline high 150 - 199 mg/dL High 200 - 499 mg/dL Very High > or = 500 mg/dL Performed By: #### L 500.4100, L500.3400 #### [facility] [address] [place], [address] Liver Profileon 2024 Albumin [Mass/Vol] 3.7 g/dL Normal 3.2-5.0 [facility] Comment on above: Performed By: #### L 500.4100, L500.3400 #### [facility] [address] [place], [address] ALK P 78 U/L Normal 45-117 [facility] Comment on above: Performed By: #### L 500.4100, L500.3400 #### [facility] [address] [place], [address] ALT [Catalytic activity/Vol] 32 U/L Normal 16-61 [facility] Comment on above: Performed By: #### L 500.4100, L500.3400 #### [facility] [address] [place], [address] AST [Catalytic activity/Vol] 16 U/L Normal 15-37 [facility] Comment on above: Performed By: #### L 500.4100, L500.3400 #### [facility] [address] [place], [address] Bilirubin [Mass/Vol] 1.00 mg/dL Normal 0.20-1.00 [facility] Comment on above: Result Comment: For patients on eltrombopag therapy, use of [place] TBIL is not recommended. Performed By: #### L 500.4100, L500.3400 #### [facility] [address] [place], [address] Bilirubin.direct [Mass/Vol] 0.17 mg/dL Normal 0.00-0.30 [facility] Comment on above: Performed By: #### L 500.4100, L500.3400 #### [facility] [address] [place], [address] Globulin (S) [Mass/Vol] 4.2 g/dL Normal 2.2-4.2 [facility] Comment on above: Performed By: #### L 500.4100, L500.3400 #### [facility] [address] [place], [address] T PROT 7.9 g/dL Normal 6.4-8.2 [facility] Comment on above: Performed By: #### L 500.4100, L500.3400 #### [facility] [address] [place], [address] Serum Creatinine AND GFRon 0 2- Creatinine [Mass/Vol] 1.36 mg/dL High 0.70-1.30 [facility] Comment on above: Result Comment: The validity of the calculated GFR GFRAA in patients over 70 years has not been determined. Clinical correlation is essential. Performed By: #### L 501.1000, L501.1105 #### [facility] [address] [place], [address] EST GFR - AA 66 mL/min Normal >60 [facility] Comment on above: Result Comment: Afri can Citizen Of [place] GFR Calc Performed By: #### L 501.1000, L501.1105 #### [facility] [address] [place], [address] GFR/1.73 sq M.predicted among non-blacks MDRD (S/P/Bld) [Vol rate/Area] 54 mL/min/{1.73_m2} Low >60 [facility] Comment on above: Result Comment: Non- GFR Calc Performed By: #### L 501.1000, L501.1105 #### [facility] [address] [place], [address] Carotid Duplex Ultrasoundon 09-16-2024 Carotid Duplex Ultrasound [facility] [address] [place] [address] Carotid Duplex Ultrasound 09/16/24 0805 MR#: [id number] Acct: [id number] Name: ANISH RIVAS Rep #: [id number] : 1950 73 From: Raad Leonard MD Attending Dr: FLORI Pope Status: REG CLI Ordering Dr: Tania Spence Date: 09/16/24 Location: [facility] Sex: M C Admitted: Reason For Study: Carotid Artery Bruit Rt. Velocities/BP Lt. Velocities/BP Prox CCA 97.7/22.8 cm/sec. Prox CCA 106.3/22.8 cm/sec. Mid CCA 96.5/22.8 cm/sec. Mid CCA 96.5/19.2 cm/sec. Dist CCA 90.4/19.2 cm/sec. Dist CCA 106.3/24.1 cm/sec. Prox ICA 75.1/17.6 cm/sec. Prox ICA 87.5/27.0 cm/sec. Mid ICA 72.8/22.1 cm/sec. Mid ICA 69.9/21.5 cm/sec. Dist ICA 84.1/26.6 cm/sec. Dist ICA 71.2/20.6 cm/sec. Rt. ICA/CCA = 0.9. Lt. ICA/CCA = 0.9. Prox ECA 134.4/15.7 cm/sec. Prox ECA 245.6/29.8 cm/sec. Rt. Vert. 81.8 cm/sec. Lt. Vert. 38.9/9.2 cm/sec. Right Extracranial There is homogeneous, smooth atherosclerotic plaque noted in the right common carotid artery. There is homogeneous, smooth atherosclerotic plaque noted in the right internal carotid artery. There is homogeneous, smooth atherosclerotic plaque noted in the right external carotid artery. Antegrade flow is noted in the right vertebral artery. Left Extracranial There is homogeneous, smooth atherosclerotic plaque noted in the left common carotid artery. There is homogeneous, smooth atherosclerotic plaque noted in the left internal carotid artery. There is heterogeneous, irregular atherosclerotic plaque noted in the left external carotid artery. Antegrade flow is noted in the left vertebral artery. There is heterogeneous, irregular atherosclerotic plaque noted in the left bulb. Procedure Carotid Duplex 00157. This is a Carotid Duplex examination using B-mode, color flow and specral Doppler. The exam was diagnostic. Exam performed in department. VL/Carotid Duplex Ultrasound Interpretation Summary Mild (<50%) stenosis right extracranial internal carotid. Mild (<50%) stenosis left extracranial internal carotid. Patent and antegrade vertebrals bilaterally. Ordering Physician: Tania Spence Referring Physician: Heriberto Gerber Performed By: Terrance Fleming, RVT 09/16/241812 Date Raad Leonard MD CC: FLORI Pope; Dr. Heriberto Gerber MD Date Dictated: 09/16/24804 Date Transcribed: 09/16/241812 Forest Management Professor: Signed Normal [facility] Lower Ext Art Exam w/ Exerci bonnie 09-16-2024 Lower Ext Art Exam w/ Exercise [facility] [address] [place] [address] Lower Ext Art Exam w/ Exercise 09/16/24814 MR#: [id number] Acct: [id number] Name: ANISH RIVAS Rep #: [id number] : 1950 73 From: Raad Leonard MD Attending Dr: FLORI Pope Status: REG CLI Ordering Dr: Tania Spence Date: 09/16/24 Location: [facility] Sex: M C Admitted: Reason For Study: PVD Procedure A bilateral lower extremity continuous wave Doppler with analog waveform analysis,segmental pressures,and ankle brachial indexes with exercise. Left Segmental Pressures Left brachial= 166mmHg. Left low thigh = 206mmHg. Left calf = 121mmHg. Left posterior tibial artery = 125mmHg. Left dorsalis pedis artery = 110mmHg. Left digit = 86 mmHg. The left dorsalis pedis waveforms are biphasic. The left posterior tibial artery waveforms are biphasic. Right Segmental Pressures Right brachial= 165mmHg. Right low thigh = 214mmHg. Right calf = 157mmHg. Right posterior tibial artery = 147mmHg. Right dorsalis pedis artery = 138mmHg. Right digit = 117 mmHg. The right posterior tibial artery waveforms are biphasic. The right dorsalis pedis waveforms are biphasic. Indices The right ankle brachial index by the posterior tibial artery is 0.89. The right ankle brachial index by the dorsalis pedis is 0.83. The right digital-brachial index is 0.70. The right post exercise ankle brachial index is 0.66. The left ankle brachial index by the posterior tibial artery is 0.75. The left ankle brachial index by the dorsalis pedis is 0.66. The left digital-brachial index is 0.52. The left post exercise ankle brachial index is 0.61. VL/Lower Ext Art Exam w/ Exercise Interpretation Summary Right GEETA 0.89, moderate arterial insufficiency. Doppler/PVR waveforms and segmental pressures reveal distal SFA/popliteal disease. Right lower extremity with abnormal response to exercise and post exercise GEETA remaining in the moderate category. Left GEETA 0.75, moderate arterial insufficiency. Doppler/PVR waveforms and segmental pressures reveal distal SFA/popliteal disease. Left lower extremity with no significant change in response to exercise Ordering Physician: Tania Spence Referring Physician: Heriberto Gerber Performed By: Terrance Fleming, T 09/16/241821 Date Raad Leonard MD CC: FLORI Pope; Dr. Heriberto Gerber MD Date Dictated: 09/16/24814 Date Transcribed: 09/16/241821 Forest Management Professor: Signed Normal [facility] Lumbar Spine 2 or 3 Viewson 08-27-2024 Lumbar Spine 2 or 3 Views [facility] Imaging Services [address] [place], [place] [id number] Lumbar Spine 2 or 3 Views MR#: [id number] Acct: [id number] Name: ANISH RIVAS Rep #: [id number] : 1950 M 73 From: Samuel Brewer MD PCP: Dr. Heriberto Gerber MD Status: [facility] Study: Lumbar Spine 2 or 3 Views Date of Exam: Exam# [id number] Ordering Dr: Tania Spence [id number] EXAM: XR LUMBOSACRAL SPINE, 2 OR 3 VIEWS CLINICAL INDICATION: low back pain, neurogenic claudication TECHNIQUE: Frontal and lateral views of the lumbar spine and sacrum. COMPARISON: No relevant prior studies available. FINDINGS: VERTEBRAE: There is bony neural foraminal narrowing at L4-5 and L5-S1. There are osteophytes at multiple levels. Preserved vertebral body height. No fracture. No spondylolisthesis. Preservation of the normal lumbar lordosis. No significant facet arthropathy. DISC SPACES: There is disc space narrowing from L1 through S1. GASTROINTESTINAL TRACT: Unremarkable as visualized. Included bowel gas pattern is non-obstructive. RAD/Lumbar Spine 2 or 3 Views IMPRESSION: Multilevel degenerative change with disc space narrowing and bony neural foraminal narrowing. There is no acute osseous abnormality. Electronically Signed: Samuel Brewer MD at 0:13 EST , CC: FLORI Pope; Dr. 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 [address] [place] [address]. [address] [place] [address] OFFICE VISIT Date of Service: 08/27/24 MR#: [id number] Acct: [id number] Name: ANISH RIVAS Rep #: [id number] : 1950 Provider: FLORI Pope Age/Sex: 73/M Location: [facility] Status: Signed Intake Vital Signs 07/23/24 13:22 08/27/24 13:54 Height 6 ft 1 in 6 ft 1 in Weight: 231 lb 230 lb BMI 30.4 30.3 BP 181/89 H 168/84 H Blood Pressure Location Lt brachial Lt brachial Position Sitting Sitting Respiration 16 16 Pulse 68 71 Pulse Source Monitor Monitor Temp 98.9 F Temp Source Temporal Pulse Oximetry (%) 96 Oxygen Delivery Method room air Intake Visit Reasons: Peripheral vascular disease Accompanied by: Self Is patient in pain?: No Allergies Opioids - Morphine Analogues Adverse Reaction (Unknown, Verified 08/27/24 13:58) Hallucinations Medications ???Medication ???Instructions ???Recorded ???Confirmed ???Type losartan 50 mg tablet 50 mg PO BID #180 tabs 04/10/23 08/27/24 Rx aspirin 81 mg tablet,delayed 81 mg PO QDAY #90 tabs 07/23/24 08/27/24 Rx release (Adult Aspirin Regimen) ezetimibe 10 mg tablet (Zetia) 10 mg PO QDAY #30 tabs 07/26/24 08/27/24 Rx metoprolol tartrate 100 mg tablet 100 mg PO BID #180 TABLETS 08/12/24 08/27/24 Rx furosemide 40 mg tablet (Lasix) 40 mg PO DAILY #90 tabs 08/16/24 08/27/24 Rx Have you fallen in the past year?: No PFSH Medical History HFrEF (heart failure with reduced ejection fraction) Atherosclerotic heart disease of [place] coronary artery without angina pectoris HTN (hypertension), benign CHF (congestive heart failure) Atrial fibrillation with rapid ventricular response Coronary artery disease Surgical History Stented coronary artery ( 02/12/23) Hx of foot surgery Hx of knee surgery History of heart bypass surgery (1998) Family History Mother CAD (coronary artery disease) Sister CAD (coronary artery disease), Onset Age: 70 in setting COVID Social History Smoking Status: Former smoker alcohol intake: never substance use type: does not use caffeine: Yes Type: coffee Number of servings: 1 HPI HPI HPI: ANISH RIVAS, is a 73 M who presents to the office today for evaluation of claudication as referred from [facility]. He reports LLE aching/cramping with walking and general feeling of BLE increased weakness over the last several months. The LLE claudication symptoms onset at about 100 yards, he has to stop and rest for the symptoms to improve before continuing. He does push through, he has consistent walking regimen getting about 1-3 miles almost daily. After he gets through the first mile with frequent rests he then feels his symptoms seem to improve and he doesn't have to stop as often. He does not seem to notice the LLE symptoms if he utilizes a shopping cart. In fact, he finds himself stooping forward a bit when on his walks to try to relieve his symptoms and it does seem to help. No prior history of vascular surgical intervention, VTE, CVA/TIA, nonhealing wounds. He reports a history of a bulging disc that occurred about 10 years ago and he has had some chronic low back pain from this along with intermittent sciatic. No history of spine surgery evaluation or intervention. His history is otherwise significant for CAD s/p PCI (2022), HFrEF, Afib. He is a former smoker. He is not diabetic. ROS General General: No weight change, fatigue, colon cancer or breast cancer HEENT HEENT: No difficulty swallowing, eye surgery or swollen glands Endo Endocrine: No thyroid disease, diabetes mellitus or thyroid cancer Skin Skin: No rash or changing moles Musc Musculoskeletal: No back problems, arthritis, rheumatoid arthritis or gout Cardio Cardiovascular: Yes heart disease, atrial fibrillation, high blood pressure, heart attack and heart stent; No murmur or pacemaker Psych Psychiatric: No depression or anxiety Resp Respiratory: No shortness of breath, No sleep apnea, No cough, No COPD, No asthma and No emphysema Gastro Gastrointestinal: No abdominal pain, No nausea or vomiting, No diarrhea, No constipation, No blood in stool, No acid reflux, No hemorrhoids, No ulcers, No gallbladder problem and No black,tarry stools Uriah Hematologic: No blood thinners, No blood disorders, No bleeding, No anemia and No blood clots Neuro Neurologic: No numbness, No tingling and No other (Stroke/TIA) Exam Const General: cooperative, healthy appearing, comfortable and no acute distress Nutritional Appearance: average body habitus Orientation: alert, umesh (more content not included)... Normal [facility] Basic Metabolic Profile (BMP )on 07-23-2024 BUN/CRE 16.3 RATIO Normal 10-20 [facility] Comment on above: Performed By: #### L 500.4100, L500.3400, L500.2500 #### [facility] [address] [place], [address] CA,Total 8.7 mg/dL Normal 8.5-10.1 [facility] Comment on above: Performed By: #### L 500.4100, L500.3400, L500.2500 #### [facility] [address] [place], [address] Chloride [Moles/Vol] 103 mmol/L Normal 98-107 [facility] Comment on above: Performed By: #### L 500.4100, L500.3400, L500.2500 #### [facility] [address] [place], [address] CO2 [Moles/Vol] 29.0 mmol/L Normal 21.0-32.0 [facility] Comment on above: Performed By: #### L 500.4100, L500.3400, L500.2500 #### [facility] [address] [place], [address] Creatinine [Mass/Vol] 1.29 mg/dL Normal 0.70-1.30 [facility] Comment on above: Result Comment: The validity of the calculated GFR GFRAA in patients over 70 years has not been determined. Clinical correlation is essential. Performed By: #### L 500.4100, L500.3400, L500.2500 #### [facility] [address] [place], [address] EST GFR - AA 70 mL/min Normal >60 [facility] Comment on above: Result Comment: Afri can Citizen Of [place] GFR Calc Performed By: #### L 500.4100, L500.3400, L500.2500 #### [facility] [address] [place], [address] GAP 4 Low 5-15 [facility] Comment on above: Performed By: #### L 500.4100, L500.3400, L500.2500 #### [facility] [address] [place], [address] GFR/1.73 sq M.predicted among non-blacks MDRD (S/P/Bld) [Vol rate/Area] 58 mL/min/{1.73_m2} Low >60 [facility] Comment on above: Result Comment: Non- GFR Calc Performed By: #### L 500.4100, L500.3400, L500.2500 #### [facility] [address] [place], [address] Glucose [Mass/Vol] 112 mg/dL High 74-106 [facility] Comment on above: Result Comment: Fast ing Glucose result from 100 to 125 mg/dL suggests IMPAIRED HOMEOSTASIS per A.D.A. criteria. Performed By: #### L 500.4100, L500.3400, L500.2500 #### [facility] [address] [place], [address] Potassium [Moles/Vol] 3.8 mmol/L Normal 3.5-5.1 [facility] Comment on above: Performed By: #### L 500.4100, L500.3400, L500.2500 #### [facility] [address] [place], [address] Sodium [Moles/Vol] 136 mmol/L Normal 136-145 [facility] Comment on above: Performed By: #### L 500.4100, L500.3400, L500.2500 #### [facility] [address] [place], [address] Urea nitrogen [Mass/Vol] 21 mg/dL High 7-18 [facility] Comment on above: Performed By: #### L 500.4100, L500.3400, L500.2500 #### [facility] [address] [place], [address] Cardiology Visit Reporton Cardiology Visit Report [facility] [address] [place] [address] OFFICE VISIT Date of Service: 07/23/24 MR#: [id number] Acct: [id number] Name: ANISH RIVAS Rep #: [id number] : 1950 Provider: Dr. Xavier Euceda MD Age/Sex: 73/M Location: [facility] Status: Signed HPI HPI History of Present Illness Details: This is a 73-year-old male presents the office today for a post hospital follow-up visit. He presented [facility] emergency department on 02/11/2023 for palpitations for 1 week. His initial high sensitive troponin was noted be elevated at 3241. His twelve-lead ECG showed atrial fibrillation with a left bundle branch block. He had echocardiogram that showed ejection fraction of 38%, severely enlarged left atrium, mildly enlarged right atrium, and an RVSP of 45 mmHg. He proceeded with heart catheterization that showed severe disease involving the proximal and mid right coronary artery with sequential 80% stenotic lesions along with a patent OLIVEROS to LAD. He proceeded with drug-eluting stent to mid RCA. He has additional history of coronary artery bypass in 1998 and hypertension. He is a previous smoker. He denies chest, arm, jaw, or neck discomfort. He denies palpitations. He denies bilateral lower extremity edema. He denies claudication. He denies shortness of breath with activity. He denies shortness of breath at rest, orthopnea, or PND. He denies significant, sudden weight gain. He denies lightheadedness. He denies dizziness, near-syncope, or syncope. He denies blood in urine, blood in stool, or epistaxis. He denies fever with chills. He denies myalgia. He denies fatigue. His exercise level has remained stable. He states home today his systolic is 110-120s. He states is cuff is consistent with rehab blood pressure. 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 Accompanied by: Self Is patient in pain?: No Allergies Opioids - Morphine Analogues Adverse Reaction (Unknown, Verified 07/23/24 13:24) Hallucinations Medications ???Medication ???Instructions ???Recorded ???Confirmed ???Type nitroglycerin 0.4 mg sublingual 0.4 mg sublingual Q5-15M PRN chest 02/19/23 07/23/24 Rx tablet pain #25 tabs empagliflozin 10 mg tablet 10 mg PO DAILY #90 tabs 02/28/23 07/23/24 Rx (Jardiance) apixaban 5 mg tablet (Eliquis) 5 mg PO BID #60 tabs 04/10/23 07/23/24 Rx atorvastatin 40 mg tablet 40 mg PO QHS #90 tabs 04/10/23 07/23/24 Rx furosemide 40 mg tablet (Lasix) 40 mg PO DAILY #90 tabs 04/10/23 07/23/24 Rx losartan 50 mg tablet 50 mg PO BID #180 tabs 04/10/23 07/23/24 Rx metoprolol tartrate 100 mg tablet 100 mg PO BID #180 tabs 04/10/23 07/23/24 Rx aspirin 81 mg tablet,delayed 81 mg PO QDAY #90 tabs 07/23/24 07/23/24 Rx release (Adult Aspirin Regimen) Have you fallen in the past year?: No PFSH Medical History HFrEF (heart failure with reduced ejection fraction) Atherosclerotic heart disease of [place] coronary artery without angina pectoris HTN (hypertension), benign CHF (congestive heart failure) Atrial fibrillation with rapid ventricular response Coronary artery disease Surgical History Stented coronary artery ( 02/12/23) Hx of foot surgery Hx of knee surgery History of heart bypass surgery (1998) Family History Mother CAD (coronary artery disease) Sister CAD (coronary artery disease), Onset Age: 70 in setting COVID Social History Smoking Status: Former smoker alcohol intake: never substance use type: does not use caffeine: Yes Type: coffee Number of servings: 1 ROS Const Const: Positive for weakness (increased weakness in legs when ambulating ); Negative for fatigue, headache(s), daytime sleepiness or difficulty sleeping ENT ENT: Negative for headache(s), dizziness or Nosebleed/epistaxis Cardio Chest Pain: No Palpitations: No Edema: None Resp Respiratory: Negative for SOB with activity, SOB at rest, SOB orthopnea SOB lying down or Cough GI GI: Negative nausea, vomiting or heartburn Neuro Neuro: Positive for weakness (increased weakness in legs when ambulating ); Negative for dizziness, lightheadedness, near syncope or headache(s) Endo Endo: Negative for fatigue Cardiology Exam Const Appearance: cooperative, healthy appearing, comfortable and no acute distress Nutritional Appearance: well nourished and overwei (more content not included)... Normal [facility] Lipid Profileon 07-23-2024 Cholesterol [Mass/Vol] 290 mg/dL High 200 [facility] Comment on above: Result Comment: <200 mg/dL Desirable 200-240 mg/dL Borderline >240 mg/dL High Risk Performed By: #### L 500.4100, L500.3400, L500.2500 ####[facility] [address] [place], [address] Cholesterol in HDL [Mass/Vol] 33 mg/dL Low [facility] Comment on above: Result Comment: The drugs N-Acetylcysteine and Metamizole may falsely depress this assay. Reference Range HDL <40 mg/dL Low HDL Cholesterol HDL >or= 60 mg/dL High HDL Cholesterol Performed By: #### L 500.4100, L500.3400, L500.2500 ####[facility] [address] [place], [address] Cholesterol in LDL [Mass/Vol] 183 mg/dL High 0-130 [facility] Comment on above: Performed By: #### L 500.4100, L500.3400, L500.2500 ####[facility] [address] [place], [address] Cholesterol in VLDL [Mass/Vol] 74 mg/dL High 5-40 [facility] Comment on above: Performed By: #### L 500.4100, L500.3400, L500.2500 ####[facility] [address] [place], [address] Triglyceride [Mass/Vol] 369 mg/dL High [facility] Comment on above: Result Comment: The drugs N-Acetylcysteine and Metamizole may falsely depress this assay. Serum Triglycerides Reference Interval Normal <150 mg/dL Borderline high 150 - 199 mg/dL High 200 - 499 mg/dL Very High > or = 500 mg/dL Performed By: #### L 500.4100, L500.3400, L500.2500 ####[facility] [address] [place], [address] Liver Profileon 07-23-2024 Albumin [Mass/Vol] 3.6 g/dL Normal 3.2-5.0 [facility] Comment on above: Performed By: #### L 500.4100, L500.3400, L500.2500 ####[facility] [address] [place], [address] ALK P 89 U/L Normal 45-117 [facility] Comment on above: Performed By: #### L 500.4100, L500.3400, L500.2500 ####[facility] [address] [place], [address] ALT [Catalytic activity/Vol] 23 U/L Normal 16-61 [facility] Comment on above: Performed By: #### L 500.4100, L500.3400, L500.2500 ####[facility] [address] [place], [address] AST [Catalytic activity/Vol] 18 U/L Normal 15-37 [facility] Comment on above: Performed By: #### L 500.4100, L500.3400, L500.2500 ####[facility] [address] [place], [address] Bilirubin [Mass/Vol] 0.60 mg/dL Normal 0.20-1.00 [facility] Comment on above: Result Comment: For patients on eltrombopag therapy, use of Dimension Fountain TBIL is not recommended. Performed By: #### L 500.4100, L500.3400, L500.2500 ####[facility] [address] [place], [address] Bilirubin.direct [Mass/Vol] 0.12 mg/dL Normal 0.00-0.30 [facility] Comment on above: Performed By: #### L 500.4100, L500.3400, L500.2500 ####[facility] [address] [place], [address] Globulin (S) [Mass/Vol] 4.0 g/dL Normal 2.2-4.2 [facility] Comment on above: Performed By: #### L 500.4100, L500.3400, L500.2500 ####[facility] [address] [place], [address] T PROT 7.6 g/dL Normal 6.4-8.2 [facility] Comment on above: Performed By: #### L 500.4100, L500.3400, L500.2500 ####[facility] [address] [place], [address] Basophil percentageOrdered B y: Heriberto Gerber on 11-19-2023 Bilirubin [Mass/Vol] 0.90 mg/dL 0.20-1.00 [facility] Comment on above: For patients on eltr ombopag therapy, use of Dimension Fountain TBIL is not recommended. Chloride [Moles/Vol] 103 mmol/L 98-107 [facility] Cholesterol [Mass/Vol] 197 mg/dL <200 [facility] Comment on above: <200 mg/dL Desirable 200-240 mg/dL Borderline >240 mg/dL High Risk Glucose [Mass/Vol] 105 mg/dL 74-106 [facility] Comment on above: Fasting Glucose resu lt from 100 to 125 mg/dL suggests IMPAIRED HOMEOSTASIS per A.D.A. criteria. Potassium [Moles/Vol] 4.1 mmol/L 3.5-5.1 [facility] Protein [Mass/Vol] 7.6 g/dL 6.4-8.2 [facility] Sodium [Moles/Vol] 139 mmol/L 136-145 [facility] Triglyceride [Mass/Vol] 166 mg/dL <199 [facility] Comment on above: The drugs N-Acetylcy steine and Metamizole may falsely depress this assay.Serum Triglycerides Reference Interval Normal <150 mg/dL Borderline high 150 - 199 mg/dL High 200 - 499 mg/dL Very High > or = 500 mg/dL Laboratory - Chemistry and C hemistry - challengeOrdered By: Heriberto Gerber on 11-19-2023 Albumin/Globulin [Mass ratio] 0.9 {ratio} 0.9-2.4 [facility] ALP [Catalytic activity/Vol] 76 U/L 45-117 [facility] ALT [Catalytic activity/Vol] 24 U/L 16-61 [facility] Cholesterol in HDL [Mass/Vol] 35 mg/dL >40 [facility] Comment on above: The drugs N-Acetylcy steine and Metamizole may falsely depress this assay. Reference Range HDL <40 mg/dL Low HDL Cholesterol HDL >or= 60 mg/dL High HDL Cholesterol Cholesterol in LDL [Mass/Vol] 129 mg/dL 0-130 [facility] CO2 [Moles/Vol] 28.0 mmol/L 21.0-32.0 [facility] Globulin (S) [Mass/Vol] 3.9 g/dL 2.2-4.2 [facility] Urea nitrogen/Creatinine [Mass ratio] 12.0 mg/mg 10-20 [facility] No Panel InformationOrdered By: Heriberto Gerber on 11-19-2023 Estimated GFR (MDRD) Amer 63 mL/min >60 [facility] Comment on above: GFR Calc Estimated GFR (MDRD) Non-Af Amer 52 mL/min >60 [facility] Comment on above: Non- GFR Calc VLDL Cholesterol 33 mg/dL 5-40 [facility] Serum or plasma calcium yamilet urement (mass/volume)Ordered By: Heriberto Gerber on 11-19-2023 Calcium [Mass/Vol] 9.0 mg/dL 8.5-10.1 [facility] Serum or plasma creatinine m easurement (mass/volume)Ordered By: Heriberto Gerber on 11-19-2023 Creatinine [Mass/Vol] 1.42 mg/dL 0.70-1.30 [facility] Comment on above: The validity of the calculated GFR & GFRAA in patients over 70 years has not been determined. Clinical correlation is essential. Serum or plasma urea nitroge n measurement (mass/volume)Ordered By: Heriberto Gerber on 11-19-2023 Urea nitrogen [Mass/Vol] 17 mg/dL 7-18 [facility] Thin prep Papanicolaou smear with manual screeningOrdered By: Heriberto Gerber on 11-19-2023 Thin prep Papanicolaou smear with manual screening 3.7 g/dL 3.2-5.0 [facility] Thin prep Papanicolaou smear with manual screening 19 U/L 15-37 [facility] Thin prep Papanicolaou smear with manual screening 8 5-15 [facility] Basophil percentageOrdered B y: Heriberto Gerber on 08-13-2023 Chloride [Moles/Vol] 101 mmol/L 98-107 [facility] Cholesterol [Mass/Vol] 289 mg/dL <200 [facility] Comment on above: <200 mg/dL Desirable 200-240 mg/dL Borderline >240 mg/dL High Risk Glucose [Mass/Vol] 125 mg/dL 74-106 [facility] Comment on above: Fasting Glucose resu lt from 100 to 125 mg/dL suggests IMPAIRED HOMEOSTASIS per A.D.A. criteria. Potassium [Moles/Vol] 3.7 mmol/L 3.5-5.1 [facility] Sodium [Moles/Vol] 136 mmol/L 136-145 [facility] Triglyceride [Mass/Vol] 373 mg/dL <199 [facility] Comment on above: The drugs N-Acetylcy steine and Metamizole may falsely depress this assay.Serum Triglycerides Reference Interval Normal <150 mg/dL Borderline high 150 - 199 mg/dL High 200 - 499 mg/dL Very High > or = 500 mg/dL Laboratory - Chemistry and C hemistry - challengeOrdered By: Heriberto Gerber on 08-13-2023 CO2 [Moles/Vol] 31.0 mmol/L 21.0-32.0 [facility] Urea nitrogen/Creatinine [Mass ratio] 15.9 mg/mg 10-20 [facility] No Panel InformationOrdered By: Heriberto Gerber on 08-13-2023 Estimated GFR (MDRD) Amer 56 mL/min >60 [facility] Comment on above: GFR Calc Estimated GFR (MDRD) Non-Af Amer 46 mL/min >60 [facility] Comment on above: Non- GFR Calc Prostate Specific Antigen Screen 0.67 ng/mL 0.00-4.00 [facility] Comment on above: This test was perfor med using the TPSA assay method for the[employer]oc chemistry system. Values obtained with differentassay methods cannot be used interchangably.When changing PSA assays in the course of monitoring apatient, additional sequential testing should be carriedout to confirm baseline values. Serum or plasma calcium yamilet urement (mass/volume)Ordered By: Heriberto Gerber on 08-13-2023 Calcium [Mass/Vol] 9.6 mg/dL 8.5-10.1 [facility] Serum or plasma cholesterol in HDL measurement (mass/volume)Ordered By: Heriberto Gerber on 08-13-2023 Cholesterol in HDL [Mass/Vol] 33 mg/dL >40 [facility] Comment on above: The drugs N-Acetylcy steine and Metamizole may falsely depress this assay. Reference Range HDL <40 mg/dL Low HDL Cholesterol HDL >or= 60 mg/dL High HDL Cholesterol Serum or plasma cholesterol in VLDL measurement (mass/volume)Ordered By: Heriberto Gerber on 08-13-2023 Cholesterol in VLDL [Mass/Vol] 75 mg/dL 5-40 [facility] Serum or plasma creatinine m easurement (mass/volume)Ordered By: Heriberto Gerber on 08-13-2023 Creatinine [Mass/Vol] 1.57 mg/dL 0.70-1.30 [facility] Comment on above: The validity of the calculated GFR & GFRAA in patients over 70 years has not been determined. Clinical correlation is essential. Serum or plasma low density lipoprotein (LDL) cholesterol measurement (mass/volume)Ordered By: Heriberto Gerber on 08-13-2023 Cholesterol in LDL [Mass/Vol] 181 mg/dL 0-130 [facility] Serum or plasma urea nitroge n measurement (mass/volume)Ordered By: Heriberto Gerber on 08-13-2023 Urea nitrogen [Mass/Vol] 25 mg/dL 7-18 [facility] Thin prep Papanicolaou smear with manual screeningOrdered By: Heriberto Gerber on 08-13-2023 Thin prep Papanicolaou smear with manual screening 4 5-15 [facility] No Panel Informationon 06-12 ANGINA N [facility] ENDING HR 74 [facility] EXT - ADMIT TO CR DATE [facility]/04[facility]2023 [facility] Max Mets 4.4 [facility] MODE Treadmill [facility] MOST RECENT SESSION 35 [facility] ealth RESTING HR 74 [facility] SESSION DATE 06/12/2023 [facility] SESSION DAYS [facility] SESSION LENGTH 0:51:44 [facility] SESSION LIST Session List: 03/05/2023N 03/06/2023N 03/10/2023N 03/12/2023N 1.07/02/2023Y 2.07Y 3.07Y 4.07Y 5.07Y 6.07Y 7.07Y 8.07Y 9.07Y10.07/2 03/20232873E17.04/07/2023 Y12.08/10/2022Y 13.08/11/2022Y14.08/ 03/2023Y15.08/ 3Y16.08/06/2023Y 17.08/Y18.08/ Y19./ 3Y20.08/Y 21./Y22.Y23. 3Y24.05/07/2023Y 25.05/08/2023Y26.02/2023Y27. 3Y28.09/07/2023Y 29.09/Y30.Y31. 3Y32.05/28/2023Y 33.05/29/2023Y34.Y 06/04/2023N 06/05/2023N 06/09/2023N35.2022Y36.06/12/2023Y Scheduled:43 Attended:36 Compliance:83% [facility] SESSION NUMBER 36 [facility] SESSION THR 104 [facility] STATUS [facility] SESNiels Chavarria 06-02-2023 ANGINA N [facility] ENDING HR 78 [facility] EXT - ADMIT TO CR DATE 03/04/2023 [facility] Max HR 94 [facility] Max Mets 4.4 [facility] MODE Treadmill [facility] MOST RECENT SESSION 33 [facility] ealth RESTING HR 61 [facility] SESSION DATE 06/02/2023 [facility] SESSION DAYS [facility] SESSION LENGTH 0:50:16 [facility] SESSION LIST Session List: 03/05/2023N 03/06/2023N 03/10/2023N 03/12/2023N 1.07/02/2023Y 2.07Y 3.07Y 4.03/20/2023Y 5.07Y 6.03/26/2023Y 7.03/27/2023Y 8.07Y 9.07Y10.07/2 03/20230247B04.04/07/2023 Y12.08/10/2022Y 13.08/11/2022Y14.08/ 03/2023Y15.08/ 3Y16.08/06/2023Y 17.08/Y18.08/ Y19. 3Y20.08/Y 21.04/30/2023Y22.08/ Y23.08 3Y24.05/07/2023Y 25.05/08/2023Y26.02/2023Y27.09 3Y28.09Y 29./Y30.Y31. 3Y32.05/28/2023Y 33.05/29/2023Y34.Y Scheduled:38 Attended:34 Compliance:89% [facility] SESSION NUMBER 34 [facility] SESSION THR 91 [facility] STATUS Cardiac Phase II [facility] MONITORED CARDIAC REHAB CHRISTIAN Chavarria 05-29-2023 ANGINA N [facility] ENDING HR 85 [facility] EXT - ADMIT TO CR DATE 03/04/2023 [facility] Max HR 91 [facility] Max Mets 4.4 [facility] MODE Treadmill [facility] MOST RECENT SESSION 32 [facility] ealt RESTING HR 54 [facility] SESSION DATE 05/29/2023 [facility] SESSION DAYS [facility] SESSION LENGTH 0:44:16 [facility] SESSION LIST Session List: 03/05/2023N 03/06/2023N 03/10/2023N 03/12/2023N 1.07Y 2.07/06/2023Y 3.07Y 4.07Y 5.07Y 6.07Y 7.07Y 8.07Y 9.07Y10.07/2 03/20239381O71.04/07/2023 Y12.08/10/2022Y 13.08/11/2022Y14.0803/2023Y15.08 3Y16.08/06/2023Y 17.04/21/2023Y18.08/ Y19.08/ 3Y20.08Y 21.04/30/2023Y22.Y23. 3Y24.05/07/2023Y 25.05/08/2023Y26.09/ 02/2023Y27.09/ 3Y28.05/19/2023Y 29.05/21/2023Y30.Y31. 3Y32.05/28/2023Y 33.05/29/2023Y Scheduled:37 Attended:33 Compliance:89% [facility] SESSION NUMBER 33 [facility] SESSION THR 84 [facility] STATUS Cardiac Phase II [facility] No Panel InformationOrdered By: Anita Duarte on 05-28-2023 ANGINA N [facility] ENDING HR 89 [facility] EXT - ADMIT TO CR DATE 03/04/2023 [facility] Max HR 97 [facility] Max Mets 4.4 [facility] MODE Treadmill [facility] MOST RECENT SESSION 31 [facility] ealt RESTING HR 101 [facility] SESSION DATE 05/28/2023 [facility] SESSION DAYS [facility] SESSION LENGTH 0:57:24 [facility] SESSION LIST Session List: 03/05/2023N 03/06/2023N 03/10/2023N 03/12/2023N 1.07Y 2.07Y 3.07Y 4.07Y 5.07Y 6.07Y 7.07Y 8.07Y 9.07Y10.07/2 03/20231196Y73.04/07/2023 Y12.08/10/2022Y 13.08/11/2022Y14.08/ 03/2023Y15.08/ 3Y16.08/06/2023Y 17.04/21/2023Y18.08/ Y19.08 3Y20.08/Y 21.04/30/2023Y22.08/ Y23. 3Y24.05/07/2023Y 25.05/08/2023Y26.02/2023Y27. 3Y28.05/19/2023Y 29.05/21/2023Y30.Y31. 3Y32.05/28/2023Y Scheduled:36 Attended:32 Compliance:88% [facility] SESSION NUMBER 32 [facility] SESSION THR 131 [facility] STATUS Cardiac Phase II [facility] MONITORED CARDIAC REHAB CHRISTIAN Chavarria 05-26-2023 ANGINA N [facility] ENDING HR 88 [facility] EXT - ADMIT TO CR DATE 03/04/2023 [facility] Max Mets 4.4 [facility] MODE Treadmill [facility] MOST RECENT SESSION 30 [facility] ealt RESTING HR 62 [facility] SESSION DATE 05/26/2023 [facility] SESSION DAYS [facility] SESSION LENGTH 0:47:52 [facility] SESSION LIST Session List: 03/05/2023N 03/06/2023N 03/10/2023N 03/12/2023N 1.07/02/2023Y 2.07Y 3.03/19/2023Y 4.03/20/2023Y 5.07Y 6.07Y 7.07/Y 8.07Y 9.07Y10.07/03/2023Y11.04/07/2023 Y12.08/10/2022Y 13.08/11/2022Y14.08/ 03/2023Y15.08/ 3Y16.08/06/2023Y 17./Y18.08/ Y19.08/ 3Y20.08/Y 21.08/Y22.08/ Y23. 3Y24.05/07/2023Y 25.08/Y26.09/ 02/2023Y27. 3Y28.09/07/2023Y 29.05/21/2023Y30.Y31. 3Y Scheduled:35 Attended:31 Compliance:88% [facility] SESSION NUMBER 31 [facility] SESSION THR 92 [facility] STATUS Cardiac Phase II [facility] MONITORED CARDIAC REHAB CHRISTIAN Chavarria 05-21-2023 ANGINA N [facility] ENDING HR 78 [facility] EXT - ADMIT TO CR DATE 03/04/2023 [facility] 95 [facility] Max Mets 4.2 [facility] MODE Treadmill [facility] MOST RECENT SESSION 28 [facility] ealt RESTING HR 69 [facility] SESSION DATE 05/21/2023 [facility] SESSION DAYS [facility] SESSION LENGTH 0:56:48 [facility] SESSION LIST Session List: 03/05/2023N 03/06/2023N 03/10/2023N 03/12/2023N 1.07/02/2023Y 2.07Y 3.07Y 4.03/20/2023Y 5.07Y 6.07Y 7.07Y 8.07Y 9.07Y10.07/03/2023Y11.04/07/2023 Y12.08/10/2022Y 13./11/2022Y14.08/ 03/2023Y15.08/ 3Y16.08/06/2023Y 17.08/Y18.08/ Y19.08/ 3Y20.08/Y 21.08/Y22.08/ Y23. 3Y24.05/07/2023Y 25.08/Y26.09/ 02/2023Y27.09 3Y28.09/07/2023Y 29.05/21/2023Y Scheduled:33 Attended:29 Compliance:87% [facility] SESSION NUMBER 29 [facility] SESSION THR 100 [facility] STATUS Cardiac Phase II [facility] MONITORED CARDIAC REHAB SESS IONon 05-15-2023 ANGINA N [facility] ENDING HR 87 [facility] EXT - ADMIT TO CR DATE 03/04/2023 [facility] Max HR 91 [facility] Max Mets 4.2 [facility] MODE Treadmill [facility] MOST RECENT SESSION 26 [facility] RESTING HR 67 [facility] SESSION DATE 05/15/2023 [facility] SESSION DAYS [facility] SESSION LENGTH 0:55:08 [facility] SESSION LIST Session List: 03/05/2023N 03/06/2023N 03/10/2023N 03/12/2023N 1.03/13/2023Y 2.07/06/2023Y 3.07/08/2023Y 4./Y 5.07/Y 6.03/26/2023Y 7.03/27/2023Y 8.03/31/2023Y 9.04/02/2023Y10.07/2 03/20230661Y65.04/07/2023 Y12.08/10/2022Y 13.08/11/2022Y14.08/ 03/2023Y15.08/ 3Y16.08/06/2023Y 17.08/Y18.08/ Y19.08/ 3Y20.08/Y 21.04/30/2023Y22.08/ Y23. 3Y24.05/07/2023Y 25.05/08/2023Y26.02/2023Y27. 3Y Scheduled:31 Attended:27 Compliance:87% [facility] SESSION NUMBER 27 [facility] SESSION THR 97 [facility] STATUS Cardiac Phase II [facility] MONITORED CARDIAC REHAB SESS IONon 05-14-2023 ANGINA N [facility] ENDING HR 88 [facility] EXT - ADMIT TO CR DATE 03/04/2023 [facility] Max HR 91 [facility] Max Mets 4 [facility] MODE Treadmill [facility] MOST RECENT SESSION 25 [facility] ealt RESTING HR 65 [facility] SESSION DATE 05/14/2023 [facility] SESSION [facility] SESSION LENGTH 0:59:16 [facility] SESSION LIST Session List: 03/05/2023N 03/06/2023N 03/10/2023N 03/12/2023N 1.07Y 2.07/06/2023Y 3.07Y 4.07Y 5.07Y 6.07Y 7.07Y 8.07Y 9.07Y10.07/2 03/20233510H38.04/07/2023 Y12.08/10/2022Y 13.08/11/2022Y14.08/ 03/2023Y15.08/ 3Y16.08/06/2023Y 17./Y18.08/ Y19.08/ 3Y20.08/Y 21.08/Y22.08/ Y23. 3Y24.05/07/2023Y 25.05/08/2023Y26.02/2023Y Scheduled:30 Attended:26 Compliance:86% [facility] SESSION NUMBER 26 [facility] SESSION THR 95 [facility] STATUS Cardiac Phase II [facility] MONITORED CARDIAC REHAB CHRISTIAN Chavarria 05-08-2023 ANGINA N [facility] ENDING HR 80 [facility] EXT - ADMIT TO CR DATE 03/04/2023 [facility] Max HR 93 [facility] Max Mets 4 [facility] MODE Treadmill [facility] MOST RECENT SESSION 24 [facility] ealt RESTING HR 65 [facility] SESSION DATE 05/08/2023 [facility] SESSION DAYS [facility] SESSION LENGTH 0:56:48 [facility] SESSION LIST Session List: 03/05/2023N 03/06/2023N 03/10/2023N 03/12/2023N 1.07Y 2.07Y 3.07Y 4.07Y 5.07Y 6.07Y 7.07Y 8.07Y 9.07Y10.07/2 03/20239706E08.04/07/2023 Y12.08/10/2022Y 13.08/11/2022Y14.08/ 03/2023Y15.08/ 3Y16.08/06/2023Y 17.08/Y18.08/ Y19.08/ 3Y20.08/Y 21.08/Y22.08/ Y23.08/28/202 3Y24.05/07/2023Y 25.05/08/2023Y Scheduled:29 Attended:25 Compliance:86% [facility] SESSION NUMBER 25 [facility] SESSION THR 97 [facility] STATUS Cardiac Phase II [facility] MONITORED CARDIAC REHAB CHRISTIAN Chavarria 05-07-2023 [facility] 80 [facility] EXT - ADMIT TO CR DATE 03/04/2023 [facility] HR 93 [facility] Max Mets 3.7 [facility] MODE Treadmill [facility] MOST RECENT SESSION 23 [facility] ealt RESTING HR 66 [facility] SESSION DATE 05/07/2023 [facility] SESSION DAYS W [facility] SESSION LENGTH 0:54:48 [facility] SESSION LIST Session List: 03/05/2023N 03/06/2023N 03/10/2023N 03/12/2023N 1.07/02/2023Y 2.07Y 3.07/08/2023Y 4.07/Y 5.07Y 6.07/Y 7.07/Y 8.07Y 9.07Y10.07/2 03/20234791D23.04/07/2023 Y12.08/10/2022Y 13.08/11/2022Y14.08/ 03/2023Y15.08/ 3Y16.08/06/2023Y 17.08//1570P02.08/ Y19.08 3Y20.08Y 21.08Y22.08Y23. 3Y24.05/07/2023Y Scheduled:28 Attended:24 Compliance:85% [facility] SESSION NUMBER 24 [facility] SESSION THR 96 [facility] STATUS Cardiac Phase II [facility] MONITORED CARDIAC REHAB CHRISTIAN Chavarria 05-05-2023 ANGINA N [facility] ENDING HR 74 [facility] EXT - ADMIT TO CR DATE 03/04/2023 [facility] Max HR 94 [facility] Max Mets 3.7 [facility] MODE Treadmill [facility] MOST RECENT SESSION 22 [facility] ealt RESTING HR 63 [facility] SESSION DATE 05/05/2023 [facility] SESSION DAYS [facility] SESSION LENGTH 0:54:40 [facility] SESSION LIST Session List: 03/05/2023N 03/06/2023N 03/10/2023N 03/12/2023N 1.07/02/2023Y 2.07Y 3.03/19/2023Y 4.03/20/2023Y 5.03/24/2023Y 6.03/26/2023Y 7.03/27/2023Y 8.03/31/2023Y 9.04/02/2023Y10.07/2 72267J63.04/07/2023 Y12.08/10/2022Y 13./11/2022Y14.0803/2023Y15.08/ 3Y16./06/2023Y 17.08/Y18.08/ Y19.08/ 3Y20.04/28/2023Y 21.04/30/2023Y22.Y23. 3Y Scheduled:27 Attended:23 Compliance:85% [facility] SESSION NUMBER 23 [facility] SESSION THR 93 [facility] STATUS Cardiac Phase II [facility] MONITORED CARDIAC REHAB CHRISTIAN Chavarria 05-01-2023 ANGINA N [facility] ENDING HR 86 [facility] EXT - ADMIT TO CR DATE 03/04/2023 [facility] Max HR 98 [facility] Max Mets 3.7 [facility] MODE Treadmill [facility] MOST RECENT SESSION [facility] RESTING HR 62 [facility] SESSION DATE 05/01/2023 [facility] SESSION DAYS [facility] SESSION LENGTH 0:55:40 [facility] SESSION LIST Session List: 03/05/2023N 03/06/2023N 03/10/2023N 03/12/2023N 1.07Y 2.07Y 3.07Y 4.03/20/2023Y 5.07Y 6.07Y 7.07Y 8.03/31/2023Y 9.04/02/2023Y10.07/2 7/3603A52.04/07/2023 Y12.08/10/2022Y 13.08/11/2022Y14.08/ 03/2023Y15.08 3Y16.08/06/2023Y 17.04/21/2023Y18.08/ Y19.08 3Y20.04/28/2023Y 21.04/30/2023Y22.Y Scheduled:26 Attended:22 Compliance:84% [facility] SESSION NUMBER 22 [facility] SESSION THR 92 [facility] STATUS Cardiac Phase II [facility] MONITORED CARDIAC REHAB SESS IONon 04-30-2023 ANGINA N [facility] ENDING HR 87 [facility] EXT - ADMIT TO CR DATE 03/04/2023 [facility] Max HR 90 [facility] Max Mets 3.2 [facility] MODE Treadmill [facility] MOST RECENT SESSION 20 [facility] ealt RESTING HR 63 [facility] SESSION DATE 04/30/2023 [facility] SESSION [facility] SESSION LENGTH 0:49:24 [facility] SESSION LIST Session List: 03/05/2023N 03/06/2023N 03/10/2023N 03/12/2023N 1.07Y 2.07Y 3.07Y 4.07Y 5.07Y 6.07Y 7.07Y 8.07Y 9.07Y10.07/2 03/20237035H58.04/07/2023 Y12.08/10/2022Y 13.08/11/2022Y14.08/ 03/2023Y15.08/ 3Y16.08/06/2023Y 17.04/21/2023Y18.08/ Y19. 3Y20.04/28/2023Y 21.04/30/2023Y Scheduled:25 Attended:21 Compliance:84% [facility] SESSION NUMBER 21 [facility] SESSION THR 93 [facility] STATUS Cardiac Phase II [facility] MONITORED CARDIAC REHAB SESS IONon 04-28-2023 ANGINA N [facility] ENDING HR 76 [facility] EXT - ADMIT TO CR DATE 03/04/2023 [facility] 107 [facility] Max Mets 3.2 [facility] MODE Treadmill [facility] MOST RECENT SESSION 19 [facility] ealth RESTING HR 66 [facility] SESSION DATE 04/28/2023 [facility] SESSION DAYS [facility] SESSION LENGTH 0:54:24 [facility] SESSION LIST Session List: 03/05/202303/06/2023N 03/10/2023N 03/12/2023N 1.03/13/2023Y 2.07Y 3.03/19/2023Y 4.03/20/2023Y 5.03/24/2023Y 6.03/26/2023Y 7.03/27/2023Y 8.03/31/2023Y 9.07Y10.07/03/2023Y11.04/07/2023 Y12.08/10/2022Y 13.08/11/2022Y14.08/ 03/2023Y15.08/ 3Y16.08/06/2023Y 17./Y18.08/ Y19. 3Y20.04/28/2023Y Scheduled:24 Attended:20 Compliance:83% [facility] SESSION NUMBER 20 [facility] SESSION THR 96 [facility] STATUS Cardiac Phase II [facility] MONITORED CARDIAC REHAB CHRISTIAN Chavarria 04-24-2023 ANGINA N [facility] ENDING HR 80 [facility] EXT - ADMIT TO CR DATE 03/04/2023 [facility] Max HR 89 [facility] Max Mets 3.2 [facility] MODE Treadmill [facility] MOST RECENT SESSION 18 [facility] ealth RESTING HR 76 [facility] SESSION DATE 04/24/2023 [facility] SESSION [facility] SESSION LENGTH 0:58:20 [facility] SESSION LIST Session List: 03/05/2023N 03/06/2023N 03/10/2023N 03/12/2023N 1.07Y 2.07Y 3.03/19/2023Y 4.03/20/2023Y 5.07/Y 6.07/Y 7.07Y 8.07Y 9.07Y10.07/2 03/20233744F92.04/07/2023 Y12.08Y 13.08/11/2022Y14.08/ 03/2023Y15. 3Y16.04/17/2023Y 17.04/21/2023Y18.Y19.08 3Y Scheduled:23 Attended:19 Compliance:82% [facility] SESSION NUMBER 19 [facility] SESSION THR 106 [facility] STATUS Cardiac Phase II [facility] MONITORED CARDIAC REHAB CHRISTIAN Chavarria 04-23-2023 ANGINA N [facility] ENDING HR 84 [facility] EXT - ADMIT TO CR DATE 03/04/2023 [facility] Max HR 86 [facility] Max Mets 3.2 [facility] MODE Treadmill [facility] MOST RECENT SESSION 17 [facility] RESTING HR 60 [facility] SESSION DATE 04/23/2023 [facility] SESSION DAYS Th [facility] SESSION LENGTH 0:56:56 [facility] SESSION LIST Session List: 03/05/2023N 03/06/2023N 03/10/2023N 03/12/2023N 1.07Y 2.07Y 3.07Y 4.07Y 5.07Y 6.07Y 7.07Y 8.07Y 9.07Y10.07/2 03/20239623V75.04/07/2023 Y12.08/10/2022Y 13.08/11/2022Y14.0803/2023Y15. 3Y16./06/2023Y 17.04/21/2023Y18.Y Scheduled:22 Attended:18 Compliance:81% [facility] SESSION NUMBER 18 [facility] SESSION THR 90 [facility] STATUS Cardiac Phase II [facility] MONITORED CARDIAC REHAB SESS Aura 04-21-2023 ANGINA N [facility] ENDING HR 71 [facility] EXT - ADMIT TO CR DATE 03/04/2023 [facility] 91 [facility] Max Mets 3.2 [facility] MODE Treadmill [facility] MOST RECENT SESSION 16 [facility] ealth RESTING HR 61 [facility] SESSION DATE 04/21/2023 [facility] SESSION DAYS [facility] SESSION LENGTH 0:45:52 [facility] SESSION LIST Session List: 03/05/2023N 03/06/2023N 03/10/2023N 03/12/2023N 1.07Y 2.03/17/2023Y 3.03/19/2023Y 4.03/20/2023Y 5.03/24/2023Y 6.03/26/2023Y 7.03/27/2023Y 8.03/31/2023Y 9.04/02/2023Y10.07/03/2023Y11.04/07/2023 Y12.04/09/2023Y 13.04/10/2023Y14.0803/2023Y15.Y16.04/17/2023Y 17.04/21/2023Y Scheduled:21 Attended:17 Compliance:80% [facility] SESSION NUMBER 17 [facility] SESSION THR 91 [facility] STATUS Cardiac Phase II [facility] MONITORED CARDIAC REHAB CHRISTIAN Chavarria 04-16-2023 ANGINA N [facility] ENDING HR 89 [facility] EXT - ADMIT TO CR DATE 03/04/2023 [facility] 95 [facility] Max Mets 3.2 [facility] MODE Treadmill [facility] MOST RECENT SESSION 14 [facility] ealth RESTING HR 69 [facility] SESSION DATE 04/16/2023 [facility] SESSION DAYS [facility] SESSION LENGTH 0:45:32 [facility] SESSION LIST Session List: 03/05/2023N 03/06/2023N 03/10/2023N 03/12/2023N 1.07Y 2.03/17/2023Y 3.03/19/2023Y 4.03/20/2023Y 5.03/24/2023Y 6.03/26/2023Y 7.03/27/2023Y 8.07Y 9.07Y10.07/2 03/20236481T77.04/07/2023 Y12.08Y 13.04/10/2023Y14.0803/2023Y15.Y Scheduled:19 Attended:15 Compliance:78% [facility] SESSION NUMBER 15 [facility] SESSION THR 99 [facility] STATUS Cardiac Phase II [facility] MONITORED CARDIAC REHAB SESS IONon 04-14-2023 [facility]T - ADMIT TO CR DATE 03/04/2023 [facility] Max HR 89 [facility] Max Mets 3.2 [facility] MODE Treadmill [facility] MOST RECENT SESSION 13 [facility] ealth RESTING HR 67 [facility] SESSION DATE 04/14/2023 [facility] SESSION DAYS [facility] SESSION LENGTH 0:54:00 [facility] SESSION LIST Session List: 03/05/202303/06/202303/10/2023N 03/12/2023N 1.07Y 2.07Y 3.07Y 4.07/Y 5.07Y 6.07Y 7.07Y 8.07Y 9.07Y10.07/2 03/20238400M82.04/07/2023 Y12.08Y 13.08Y14.03/2023Y Scheduled:18 Attended:14 Compliance:77% [facility] SESSION NUMBER 14 [facility] SESSION THR 97 [facility] STATUS Cardiac Phase II [facility] MONITORED CARDIAC REHAB JEREMYS IONon 04-09-2023 [facility] N [facility] ENDING HR 71 [facility] EXT - ADMIT TO CR DATE 03/04/2023 [facility] Max HR 86 [facility] Max Mets 3 [facility] MODE Treadmill [facility] MOST RECENT SESSION 11 [facility] ealth RESTING HR 69 [facility] SESSION DATE 04/09/2023 [facility] SESSION DAYS [facility] SESSION LENGTH 0:54:48 [facility] SESSION LIST Session List: 03/05/2023N 03/06/2023N 03/10/2023N 03/12/2023N 1.07/02/2023Y 2.07Y 3.07Y 4.03/20/2023Y 5.03/24/2023Y 6.03/26/2023Y 7.03/27/2023Y 8.07Y 9.07Y10.07/2 03/20235276H85.04/07/2023 Y12.04/09/2023Y Scheduled:16 Attended:12 Compliance:75% [facility] SESSION NUMBER 12 [facility] SESSION THR 99 [facility] STATUS Cardiac Phase II [facility] MONITORED CARDIAC REHAB SESNiels Chavarria 04-07-2023 ANGINA N [facility] ENDING HR 89 [facility] EXT - ADMIT TO CR DATE 03/04/2023 [facility] 89 [facility] Max Mets 3 [facility] MODE Treadmill [facility] MOST RECENT SESSION 10 [facility] ealth RESTING HR 76 [facility] SESSION DATE 04/07/2023 [facility] SESSION DAYS [facility] SESSION LENGTH 0:58:24 [facility] SESSION LIST Session List: 03/05/2023N 03/06/2023N 03/10/2023N 03/12/2023N 1.07Y 2.07Y 3.07Y 4.03/20/2023Y 5.03/24/2023Y 6.07Y 7.03/27/2023Y 8.03/31/2023Y 9.04/02/2023Y10.07/2 03/20236148Q54.04/07/2023 Y Scheduled:15 Attended:11 Compliance:73% [facility] SESSION NUMBER 11 [facility] SESSION THR 106 [facility] STATUS Cardiac Phase II [facility] MONITORED CARDIAC REHAB CHRISTIAN Chavarria 04-03-2023 ANGINA N [facility] ENDING HR 84 [facility] EXT - ADMIT TO CR DATE 03/04/2023 [facility] 86 [facility] Max Mets 3 [facility] MODE Treadmill [facility] MOST RECENT SESSION 9 [facility] ealth RESTING HR 68 [facility] SESSION DATE 04/03/2023 [facility] SESSION [facility] SESSION LENGTH 1:01:28 [facility] SESSION LIST Session List: 03/05/2023N 03/06/2023N 03/10/2023N 03/12/2023N 1.07Y 2.07Y 3.07Y 4.03/20/2023Y 5.03/24/2023Y 6.03/26/2023Y 7.03/27/2023Y 8.07Y 9.04/02/2023Y10.07/03/2023Y Scheduled:14 Attended:10 Compliance:71% [facility] SESSION NUMBER 10 [facility] SESSION THR 98 [facility] STATUS Cardiac Phase II [facility] MONITORED CARDIAC REHAB SESS IONon 03-27-2023 [facility]GIN[facility] N [facility] ENDING HR 76 [facility] EXT - ADMIT TO CR DATE 03/04/2023 [facility] Max HR 89 [facility] Max Mets 2.8 [facility] MODE Treadmill [facility] MOST RECENT SESSION 6 [facility] ealth RESTING HR 65 [facility] SESSION DATE 03/27/2023 [facility] SESSION DAYS [facility] SESSION LENGTH 0:52:52 [facility] SESSION LIST Session List: 03/05/202303/06/2023N 03/10/2023N 03/12/2023N 1.07 2.07Y 3.03/19/2023Y 4.03/20/2023Y 5.03/24/2023Y 6.03/26/2023Y 7.03/27/2023Y Scheduled:11 Attended:7 Compliance:63% [facility] SESSION NUMBER 7 [facility] SESSION THR 95 [facility] STATUS Cardiac Phase II [facility] MONITORED CARDIAC REHAB SESS IONon 03-26-2023 ANGINA N [facility] ENDING HR 62 [facility] EXT - ADMIT TO CR DATE 03/04/2023 [facility] Max HR 84 [facility] Max Mets 2.8 [facility] MODE Treadmill [facility] MOST RECENT SESSION 5 [facility] RESTING HR 64 [facility] SESSION DATE 03/26/2023 [facility] SESSION DAYS [facility] SESSION LENGTH 0:55:00 [facility] SESSION LIST Session List: 03/05/2023N 03/06/2023N 03/10/2023N 03/12/2023 1.03/13/2023Y 2.03/17/2023Y 3.03/19/2023Y 4.03/20/2023Y 5.03/24/2023Y 6.03/26/2023Y Scheduled:10 Attended:6 Compliance:60% [facility] SESSION NUMBER 6 [facility] SESSION THR 94 [facility] STATUS Cardiac Phase II [facility] MONITORED CARDIAC REHAB SESS IONon 03-24-2023 ANGINA N [facility] ENDING HR 62 [facility] EXT - ADMIT TO CR DATE 03/04/2023 [facility] Max HR 108 [facility] Max Mets 2.8 [facility] MODE Treadmill [facility] MOST RECENT SESSION 4 [facility] ealth RESTING HR 65 [facility] SESSION DATE 03/24/2023 [facility] SESSION DAYS [facility] SESSION LENGTH 1:02:44 [facility] SESSION LIST Session List: 03/05/2023N 03/06/2023N 03/10/2023N 03/12/2023N 1.03/13/2023 2.03/17/2023 3.03/19/2023 4.03/20/2023Y 5.03/24/2023 Scheduled:9 Attended:5 Compliance:55% [facility] SESSION NUMBER 5 [facility] SESSION THR 95 [facility] STATUS Cardiac Phase II [facility] MONITORED CARDIAC REHAB SESS IONon 03-19-2023 ANGINA N [facility] ENDING HR 67 [facility] EXT - ADMIT TO CR DATE 03/04/2023 [facility] Max HR 84 [facility] Max Mets 2.6 [facility] MODE Treadmill [facility] MOST RECENT SESSION 2 [facility] ealth RESTING HR 65 [facility] SESSION DATE 03/19/2023 [facility] SESSION DAYS [facility] SESSION LENGTH 0:55:28 [facility] SESSION LIST Session List: 03/05/2023N 03/06/2023N 03/10/2023N 03/12/2023N 1.03/13/2023Y 2.03/17/2023Y 3.03/19/2023 Scheduled:7 Attended:3 Compliance:42% [facility] SESSION NUMBER 3 [facility] SESSION THR 95 [facility] STATUS Cardiac Phase II [facility] MONITORED CARDIAC REHAB SESS IONon 03-17-2023 ANGINA N [facility] ENDING HR 82 [facility] EXT - ADMIT TO CR DATE 03/04/2023 [facility] Max HR 84 [facility] Max Mets 2.6 [facility] MODE Treadmill [facility] MOST RECENT SESSION 1 [facility] ealth RESTING HR 65 [facility] SESSION DATE 03/17/2023 [facility] SESSION DAYS [facility] SESSION LENGTH 0:58:20 [facility] SESSION LIST Session List: 03/05/202303/06/202303/10/202303/12/2023 1.03/13/2023Y 2.03/17/2023Y Scheduled:6 Attended:2 Compliance:33% [facility] SESSION NUMBER 2 [facility] SESSION THR 95 [facility] STATUS Cardiac Phase II [facility] MONITORED CARDIAC REHAB CHRISTIAN Chavarria 03-13-2023 ANGINA N [facility] ENDING HR 86 [facility] EXT - ADMIT TO CR DATE 03/04/2023 [facility] Max HR 88 [facility] Max Mets 2.6 [facility] MODE Treadmill [facility] RESTING HR 68 [facility] SESSION DATE 03/13/2023 [facility] SESSION DAYS [facility] SESSION LENGTH 0:54:16 [facility] SESSION LIST Session List: 03/05/202303/06/202303/10/202303/12/2023 1.03/13/2023 Scheduled:5 Attended:1 Compliance:20% [facility] SESSION NUMBER 1 [facility] SESSION THR 98 [facility] STATUS Cardiac Phase II [facility] Absolute lymphocyte countOrd ered By: Dr. Pierre on 02-11-2023 Lymphocytes Auto (Unsp spec) [#/Vol] 1.17 10*3/uL 0.83-4.51 [facility] Basophil percentageOrdered B y: Dr. Pierre on 02-11-2023 Basophils/100 WBC (Bld) 0.6 % 0-1 [facility] Chloride [Moles/Vol] 101 mmol/L 98-107 [facility] Eosinophils/100 WBC (Bld) 0.7 % 0-5 [facility] Glucose [Mass/Vol] 147 mg/dL 74-106 [facility] Comment on above: Fasting Glucose resu lt greater than or equal to 126 mg/dL suggests DIABETES MELLITUS per A.D.A. criteria. Neutrophils (Bld) [#/Vol] 8.4 10*3/uL 2.0-7.7 [facility] Neutrophils/100 WBC (Bld) 81.4 % 47-70 [facility] Potassium [Moles/Vol] 3.5 mmol/L 3.5-5.1 [facility] Sodium [Moles/Vol] 135 mmol/L 136-145 [facility] WBC (Bld) [#/Vol] 10.3 10*3/uL 4.4-11.0 [facility] Blood erythrocytes count (nu mber/volume)Ordered By: Dr. Pierre on 02-11-2023 RBC (Bld) [#/Vol] 4.31 10*6/uL 4.6-6.2 [facility] Blood hemoglobin measurement (mass/volume)Ordered By: Dr. Pierre on 02-11-2023 Hemoglobin (Bld) [Mass/Vol] 12.3 g/dL 13.0-16.5 [facility] Blood lymphocytes/100 leukoc ytesOrdered By: Dr. Pierre on 02-11-2023 Lymphocytes/100 WBC (Bld) 11.4 % 19-41 [facility] Blood monocytes/100 leukocyt esOrdered By: Dr. Pierre on 02-11-2023 Monocytes/100 WBC (Bld) 5.5 % 0-10 [facility] Blood platelet mean volumeOr dered By: Dr. Pierre on 02-11-2023 Platelet mean volume (Bld) [Entitic vol] 9.2 fL 6.2-12.0 [facility] Determination of erythrocyte mean corpuscular volume (MCV)Ordered By: Dr. Pierre on 02-11-2023 MCV (RBC) [Entitic vol] 87.0 fL 80-94 [facility] Hematocrit Auto (Bld) [Volum e fraction]Ordered By: Dr. Pierre on 02-11-2023 Hematocrit (Bld) [Volume fraction] 37.5 % 40-54 [facility] INR in Blood by Coagulation assayOrdered By: Dr. Pierre on 02-11-2023 INR Coag (Bld) [Relative time] 1.1 {INR} [facility] Laboratory - Chemistry and C hemistry - challengeOrdered By: Dr. Pierre on 02-11-2023 CO2 [Moles/Vol] 27.0 mmol/L 21.0-32.0 [facility] Urea nitrogen/Creatinine [Mass ratio] 13.9 mg/mg 10-20 [facility] - CoagulationOrde red By: Dr. Pierre on 02-11-2023 aPTT Coag (Bld) [Time] 34.2 s 24.1-36.2 [facility] PT Coag (PPP) [Time] 13.9 s 11.7-14.9 [facility] Laboratory - Hematology and Cell countsOrdered By: Dr. Pierre on 02-11-2023 Erythrocyte distribution width (RBC) [Entitic vol] 42.1 fL 35.1-43.9 [facility] Erythrocyte distribution width (RBC) [Ratio] 13.2 % 11.6-14.6 [facility] Immature granulocytes/100 WBC (Bld) 0.400 % 0.0-0.9 [facility] Comment on above: IG% - Immature Granu locytes (promyelocytes, myelocytes and metamyelocytes) > 1% indicates that a LEFT SHIFT is Present. MCH (RBC) [Entitic mass] 28.5 pg 27.0-32.0 [facility] Nucleated RBC/100 WBC (Bld) [Ratio] 0 % 0-5 [facility] MCHC Auto (RBC) [Mass/Vol]Or dered By: Dr. Pierre on 02-11-2023 MCHC (RBC) [Mass/Vol] 32.8 g/dL 32-36 [facility] No Panel InformationOrdered By: Dr. Pierre on 02-11-2023 Estimated Creatinine Clearance Calc 51.92 ml/min [facility] Estimated GFR (MDRD) Amer 65 mL/min >60 [facility] Comment on above: GFR Calc Estimated GFR (MDRD) Non-Af Amer 54 mL/min >60 [facility] Comment on above: Non- GFR Calc Troponin I High Sensitivity 3241 pg/mL 3.0-78.0 [facility] Comment on above: Critical Result(s) Marty Waddell at: 11:18:10 02/11/2023 by: CCrytzer. Results read back by same. Please Note: New Test Units and Gender Specific Reference Ranges. For more information see Policy Stat Procedure [place] High Sensitivity Troponin (TNIH) and attachments. Platelets bldOrdered By: Dr. Pierre on 02-11-2023 Platelets (Bld) [#/Vol] 556 10*3/uL 150-450 [facility] Serum or plasma calcium yamilet urement (mass/volume)Ordered By: Dr. Pierre on 02-11-2023 Calcium [Mass/Vol] 9.5 mg/dL 8.5-10.1 [facility] Serum or plasma creatinine m easurement (mass/volume)Ordered By: Dr. Pierre on 02-11-2023 Creatinine [Mass/Vol] 1.37 mg/dL 0.70-1.30 [facility] Comment on above: The validity of the calculated GFR & GFRAA in patients over 70 years has not been determined. Clinical correlation is essential. Serum or plasma urea nitroge n measurement (mass/volume)Ordered By: Dr. Pierre on 02-11-2023 Urea nitrogen [Mass/Vol] 19 mg/dL 7-18 [facility] Thin prep Papanicolaou smear with manual screeningOrdered By: Dr. Pierre on 02-11-2023 Thin prep Papanicolaou smear with manual screening 7 5-15 [facility] XR KNEE LEFT 4+ VIEWS (SPECI FY VIEWS IN COMMENTS)on 01-29-2023 XR KNEE LEFT 4+ VIEWS (SPECIFY VIEWS IN COMMENTS) EXAMINATION: XR KNEE LEFT 4+ VIEWS (SPECIFY VIEWS IN COMMENTS) 01/29/2023 8:41 am HISTORY: ORDERING SYSTEM PROVIDED HISTORY: Knee pain, TECHNOLOGIST PROVIDED HISTORY: Illness/Other Reason for exam: Patient has left knee pain, no recent injury. Cancer History: . Surgery, RadiationHistory: . Encounter Type: Initial Additional signs and symptoms: Knee pain ORDERING SYSTEM PROVIDED DIAGNOSIS CODES: M25.562 Left knee pain COMPARISON: None IMPRESSION: FINDINGS/ Minimal tricompartmental osteoarthritis. Quadriceps insertion enthesophyte. No joint effusion. Curettage and packing of a contralateral right tibial bone lesion is also noted, with no prior exam for interval comparison. Workstation ID: [id number] Dictated by: CHADD BHAKTA on FriJanuary 29, 2023 3:53:04 PM EDT Transcribed by: CHADD BHAKTA on FriJanuary 29, 2023 3:53:04 PM EDT Finalized by: CHADD BHAKTA on FriJanuary 29, 2023 3:53:04 PM EDT Normal [facility] Comment on above: Order Comment: Injur y/Trauma or Illness?:Illness/Other How long have you had these symptoms (acute/chronic)?:Acute Reason for exam?:Patient has left knee pain, no recent injury. History of cancer?:. Surgeries, chemotherapy, or radiation?:. Type of Exam?:Initial Additional signs and symptoms?:Knee pain Vital Signs Date Time Vital Sign Value Performing Clinician Faci lity 06-09-2023 14:19-0400 Body height 185.[address] Heriberto Gerber Work Phone: [facility] 06-09-2023 14:19-0400 Body mass index (BMI) [Ratio] 26.9 kg/m2 Dr. Heriberto Gerber Work Phone: [facility] 06-09-2023 14:19-0400 Body weight 92.[address] Heriberto Gerber Work Phone: [facility] 06-09-2023 14:19-0400 Diastolic blood pressure 87 mm[Hg] Dr. Heriberto Gerber Work Phone: [facility] 06-09-2023 14:19-0400 Heart rate 65 /min Dr. Heriberto Gerber Work Phone: [facility] 06-09-2023 14:19-0400 Respiratory rate 16 /min Dr. Heriberto Gerebr Work Phone: [facility] 06-09-2023 14:19-0400 Systolic blood pressure 169 mm[Hg] Dr. Heriberto Gerber Work Phone: [facility] 02-11-2023 12:28-0400 Body temperature 98.1 [degF] [facility] 02-11-2023 12:28-0400 Diastolic blood pressure 84 mm[Hg] [facility] 02-11-2023 12:28-0400 Heart rate 109 /min [facility] 02-11-2023 12:28-0400 Respiratory rate 18 /min [facility] 02-11-2023 12:28-0400 SaO2% (BldA) [Mass fraction] 94 % [facility] 02-11-2023 12:28-0400 Systolic blood pressure 161 mm[Hg] [facility] 02-11-2023 10:040 Body height 182.88 cm [facility] 02-11-2023 10:040 Body mass index (BMI) [Ratio] 28.5 kg/m2 [facility] 02-11-2023 10: Body weight 95.39 kg [facility] Encounters Encounter Date Encounter Type Care Provider Facility Start: 04-01-2025 ambulatory Heriberto Gerber Facility:[facility] Start: 10-20-2024 End: 10-20-2024 ambulatory Heriberto Gerber Facility:[facility] Start: 2024 End: 2024 ambulatory Eliezer Canada Facility:[facility] Start: 09-30-2024 ambulatory Heriberto Gerber [facility] Start: 09-16-2024 ambulatory Heriberto Gerber [facility] Start: 09-16-2024 End: 09-16-2024 ambulatory Tania Spence Facility:[facility] Start: 08-27-2024 End: 08-27-2024 ambulatory Xavier Euceda Facility:[facility] Start: 08-27-2024 End: 08-27-2024 ambulatory Tania Spence Facility:[facility] Start: 07-23-2024 End: 07-23-2024 ambulatory Heriberto Gerber Facility:[facility] Start: 07-23-2024 End: 07-23-2024 ambulatory Ramon Verdugo NP Facility:[facility] Start: 11-19-2023 End: 11-19-2023 ambulatory [facility] Work Phone: Start: 11-19-2023 End: 11-19-2023 Patient encounter procedure [facility] Work Phone: Start: 08-13-2023 End: 08-13-[address] Heriberto Gerber Work Phone: [facility] Work Phone: Start: 08-13-2023 End: 08-13-[address] Heriberto Gerber Work Phone: [facility] Work Phone: Start: 07-18-2023 ambulatory VERONA BEVERLY [facility] Start: 06-17-2023 ambulatory VERONA BEVERLY [facility] Start: 06-12-2023 End: 06-16-2023 ambulatory Verona Beverly MD Work Phone: [facility] Comment on above: S/P PTCA (percutaneo us transluminal coronary angioplasty) (Primary Dx) Start: 06-11-2023 End: 06-15-2023 ambulatory Verona Beverly MD Work Phone: [facility] Comment on above: S/P PTCA (percutaneo us transluminal coronary angioplasty) (Primary Dx) Start: 06-09-2023 End: 06-09-[address] Heriberto Gerber Work Phone: [facility] Work Phone: Start: 06-04-2023 End: 06-04-2023 ambulatory Verona Beverly MD Work Phone: [facility] Comment on above: Arrived Canceled (Patient/Ca ncelled) Start: 06-02-2023 End: 06-06-2023 ambulatory Verona Beverly MD Work Phone: [facility] Comment on above: S/P PTCA (percutaneo us transluminal coronary angioplasty) (Primary Dx) Start: 05-29-2023 End: 06-02-2023 ambulatory Verona Beverly MD Work Phone: [facility] Comment on above: S/P PTCA (percutaneo us transluminal coronary angioplasty) (Primary Dx) Start: 05-28-2023 End: 06-01-2023 ambulatory Verona Beverly MD Work Phone: [facility] Comment on above: S/P PTCA (percutaneo us transluminal coronary angioplasty) (Primary Dx) Start: 05-26-2023 End: 05-30-2023 ambulatory Verona Beverly MD Work Phone: [facility] Comment on above: S/P PTCA (percutaneo us transluminal coronary angioplasty) (Primary Dx) Start: 05-22-2023 End: 05-26-2023 ambulatory Verona Beverly MD Work Phone: [facility] Comment on above: S/P PTCA (percutaneo us transluminal coronary angioplasty) (Primary Dx) Start: 05-21-2023 End: 05-25-2023 ambulatory Verona Beverly MD Work Phone: [facility] Comment on above: S/P PTCA (percutaneo us transluminal coronary angioplasty) (Primary Dx) Start: 05-19-2023 End: 05-23-[address] [facility] Start: 05-15-2023 End: 05-19-2023 ambulatory Verona Beverly MD Work Phone: [facility] Comment on above: S/P PTCA (percutaneo us transluminal coronary angioplasty) (Primary Dx) Start: 05-14-2023 End: 05-18-2023 ambulatory Verona Beverly MD Work Phone: [facility] Comment on above: S/P PTCA (percutaneo us transluminal coronary angioplasty) (Primary Dx) Start: 05-08-2023 End: 05-12-2023 ambulatory Verona Beverly MD Work Phone: [facility] Comment on above: S/P PTCA (percutaneo us transluminal coronary angioplasty) (Primary Dx) Start: 05-07-2023 End: 05-11-2023 ambulatory Verona Beverly MD Work Phone: [facility] Comment on above: S/P PTCA (percutaneo us transluminal coronary angioplasty) (Primary Dx) Start: 05-05-2023 End: 05-09-2023 ambulatory Verona Beverly MD Work Phone: [facility] Comment on above: S/P PTCA (percutaneo us transluminal coronary angioplasty) (Primary Dx) Start: 05-01-2023 End: 05-05-2023 ambulatory Verona Beverly MD Work Phone: [facility] Comment on above: S/P PTCA (percutaneo us transluminal coronary angioplasty) (Primary Dx) Start: 04-30-2023 End: 05-04-2023 ambulatory Verona Beverly MD Work Phone: [facility] Comment on above: S/P PTCA (percutaneo us transluminal coronary angioplasty) (Primary Dx) Start: 04-28-2023 End: 05-02-2023 ambulatory Verona Beverly MD Work Phone: [facility] Comment on above: S/P PTCA (percutaneo us transluminal coronary angioplasty) (Primary Dx) Start: 04-24-2023 End: 04-28-2023 ambulatory Verona Beverly MD Work Phone: [facility] Comment on above: S/P PTCA (percutaneo us transluminal coronary angioplasty) (Primary Dx) Start: 04-23-2023 End: 04-27-2023 ambulatory Verona Beverly MD Work Phone: [facility] Comment on above: S/P PTCA (percutaneo us transluminal coronary angioplasty) (Primary Dx) Start: 04-21-2023 End: 04-25-2023 ambulatory Verona Beverly MD Work Phone: [facility] Comment on above: S/P PTCA (percutaneo us transluminal coronary angioplasty) (Primary Dx) Start: 04-17-2023 End: 04-21-2023 ambulatory Verona Beverly MD Work Phone: [facility] Comment on above: S/P PTCA (percutaneo us transluminal coronary angioplasty) (Primary Dx) Start: 04-16-2023 End: 04-20-2023 ambulatory Verona Beverly MD Work Phone: [facility] Comment on above: S/P PTCA (percutaneo us transluminal coronary angioplasty) (Primary Dx) Start: 04-14-2023 End: 04-18-2023 ambulatory Verona Beverly MD Work Phone: [facility] Comment on above: S/P PTCA (percutaneo us transluminal coronary angioplasty) (Primary Dx) Start: 04-10-2023 End: 04-14-[address] [facility] Start: 04-09-2023 End: 04-13-2023 ambulatory Verona Beverly MD Work Phone: [facility] Comment on above: S/P PTCA (percutaneo us transluminal coronary angioplasty) (Primary Dx) Start: 04-07-2023 End: 04-11-2023 ambulatory Verona Beverly MD Work Phone: [facility] Comment on above: S/P PTCA (percutaneo us transluminal coronary angioplasty) (Primary Dx) Start: 04-03-2023 End: 04-07-2023 ambulatory Verona Beverly MD Work Phone: [facility] Comment on above: S/P PTCA (percutaneo us transluminal coronary angioplasty) (Primary Dx) Start: 04-02-2023 End: 04-06-2023 [facility] Start: 03-31-2023 End: 04-04-2023 ambulatory [facility] Start: 03-27-2023 End: 03-31-2023 ambulatory Verona Beverly MD Work Phone: [facility] Comment on above: S/P PTCA (percutaneo us transluminal coronary angioplasty) (Primary Dx) Start: 03-26-2023 End: 03-30-2023 ambulatory Verona Beverly MD Work Phone: [facility] Comment on above: S/P PTCA (percutaneo us transluminal coronary angioplasty) (Primary Dx) Start: 03-24-2023 End: 03-28-2023 ambulatory Verona Beverly MD Work Phone: [facility] Comment on above: S/P PTCA (percutaneo us transluminal coronary angioplasty) (Primary Dx) Start: 03-20-2023 End[facility] Start: 03-19-2023 End: 03-23-2023 ambulatory Verona Beverly MD Work Phone: [facility] Comment on above: S/P PTCA (percutaneo us transluminal coronary angioplasty) (Primary Dx) Start: 03-17-2023 End: 03-21-2023 ambulatory Verona Beverly MD Work Phone: [facility] Comment on above: S/P PTCA (percutaneo us transluminal coronary angioplasty) (Primary Dx) Start: 03-13-2023 End: 03-17-2023 ambulatory Verona Beverly MD Work Phone: [facility] Comment on above: S/P PTCA (percutaneo us transluminal coronary angioplasty) (Primary Dx) Start: 03-04-2023 End: 03-08-2023 ambulatory XAVIER Bowser [facility] Start: 02-11-2023 Evaluation and management of inpatient [facility] Start: 01-29-2023 End: 01-29-2023 ambulatory PHYSICIAN NO [facility] Start: 03-08-2019 End: 03-12-2019 Patient encounter procedure CHADD COREY [facility] Procedures Date Procedure Procedure Detail Performing Clinician Start: 06-12-2023 MONITORED CARDIAC RE HAB SESSION Jayne Thapa Antijasen PT Start: 06-02-2023 MONITORED CARDIAC RE HAB SESSION Jayne Thapa Antijasen PT Start: 05-29-2023 MONITORED CARDIAC RE HAB SESSION Brittny Nicohlson RN Start: 05-28-2023 MONITORED CARDIAC RE HAB SESSION Anita Duarte Start: 05-26-2023 MONITORED CARDIAC RE HAB SESSION Jayne Thapa Antill PT Start: 05-21-2023 MONITORED CARDIAC RE HAB SESSION Jayne Thapa Antill PT Start: 05-15-2023 MONITORED CARDIAC RE HAB SESSION Jayne Thapa Antill PT Start: 05-14-2023 MONITORED CARDIAC RE HAB SESSION aJyne Thapa Antill PT Start: 05-08-2023 MONITORED CARDIAC RE HAB SESSION Jayne Thapa Antill PT Start: 05-07-2023 MONITORED CARDIAC RE HAB SESSION Jayne Thapa Antill PT Start: 05-05-2023 MONITORED CARDIAC RE HAB SESSION Jayne Thapa Antill PT Start: 05-01-2023 MONITORED CARDIAC RE HAB SESSION Jayne Thapa Antill PT Start: 04-30-2023 MONITORED CARDIAC RE HAB SESSION Jayne Thapa Antill PT Start: 04-28-2023 MONITORED CARDIAC RE HAB SESSION Jayne Thapa Antill PT Start: 04-24-2023 MONITORED CARDIAC RE HAB SESSION Jayne Thapa Antill PT Start: 04-23-2023 MONITORED CARDIAC RE HAB SESSION Jayne Thapa Antill PT Start: 04-21-2023 MONITORED CARDIAC RE HAB SESSION Jayne Thapa Antill PT Start: 04-16-2023 MONITORED CARDIAC RE HAB SESSION Jayne Thapa Antill PT Start: 04-14-2023 MONITORED CARDIAC RE HAB SESSION Jayne Thapa Antill PT Start: 04-09-2023 MONITORED CARDIAC RE HAB SESSION Jayne Thapa Antill PT Start: 04-07-2023 MONITORED CARDIAC RE HAB SESSION Jayne Thapa Antill PT Start: 04-03-2023 MONITORED CARDIAC RE HAB SESSION Jayne Alford PT Start: 03-27-2023 MONITORED CARDIAC RE HAB SESSION Brittny Nicholson RN Start: 03-26-2023 MONITORED CARDIAC RE HAB SESSION Brittny Nicholson RN Start: 03-24-2023 MONITORED CARDIAC RE HAB SESSION Brittny Nicholson RN Start: 03-19-2023 MONITORED CARDIAC RE HAB SESSION Brittny Nicholson RN Start: 03-17-2023 MONITORED CARDIAC RE HAB SESSION Jayne Alford PT Start: 03-13-2023 MONITORED CARDIAC RE HAB SESSION Jayne Alford PT Start: 02-11-2023 Plain chest X-ray Plan of Treatment Date Care Activity Detail Author Start: 06-12-2023 End: 06-12-2023 ambulatory 06/12/2023 8:00 AM EDT Treatment [facility] [address] [place] [phone] Verona Beverly MD [address] [place] [id number] Discharge Disposition: Home [facility] Start: 06-09-2023 End: 06-09-2023 ambulatory 06/09/2023 8:00 AM EDT Treatment [facility] [address] [place] [address] Verona Beverly MD [address] [place] [id number] Discharge Disposition: Home [facility] Start: 06-05-2023 End: 06-05-2023 ambulatory 06/05/2023 8:00 AM EDT Treatment [facility] [address] [place] [address] Verona Beverly MD [address] [place] [address] [facility] Start: 06-04-2023 End: 06-04-2023 ambulatory 06/04/2023 8:00 AM EDT Treatment [facility] [address] [place] [phone] Verona Beverly MD [address] [place] [phone] [facility] Start: 06-02-2023 End: 06-02-2023 ambulatory 06/02/2023 8:00 AM EDT Treatment [facility] [address] [place] [phone] Verona Beverly MD [address] [place] [phone] [facility] Start: 05-29-2023 End: 05-29-2023 ambulatory 05/29/2023 8:00 AM EDT Treatment [facility] [address] [place] [phone] Verona Beverly MD [address] [place] [id number] [facility] Start: 05-28-2023 End: 05-28-2023 ambulatory 05/28/2023 8:00 AM EDT Treatment [facility] [address] [place] [phone] Verona Beverly MD [address] [place] [address] [facility] Start: 05-26-2023 End: 05-26-2023 ambulatory 05/26/2023 8:00 AM EDT Treatment [facility] [address] [place] [phone] Verona Bevrely MD [address] [place] [id number] [facility] Start: 05-22-2023 End: 05-22-2023 ambulatory 05/22/2023 8:00 AM EDT Treatment [facility] [address] [place] [phone] Verona Beverly MD [address] [place] [address] [facility] Start: 05-21-2023 End: 05-21-2023 ambulatory 05/21/2023 8:00 AM EDT Treatment [facility] [address] [place] [phone] Verona Beverly MD [address] [place] [phone] [facility] Start: 05-19-2023 End: 05-19-2023 ambulatory 05/19/2023 8:00 AM EDT Treatment [facility] [address] [place] [phone] Verona Beverly MD [address] [place] [phone] [facility] Start: 05-15-2023 End: 05-15-2023 ambulatory 05/15/2023 8:00 AM EDT Treatment [facility] [address] [place] [phone] Verona Beverly MD [address] [place] [phone] [facility] Start: 05-14-2023 End: 05-14-2023 ambulatory 05/14/2023 8:00 AM EDT Treatment [facility] [address] [place] [address] Verona Beverly MD [address] [place] [address] [facility] Start: 05-09-2023 Influenza vaccination Sequential Influenza Vaccine (#1) [facility] Start: 05-08-2023 End: 05-08-2023 ambulatory 05/08/2023 8:00 AM EDT Treatment [facility] [address] [place] [phone] Verona Beverly MD [address] [place] [id number] [facility] Start: 05-07-2023 End: 05-07-2023 ambulatory 05/07/2023 8:00 AM EDT Treatment [facility] [address] [place] [phone] Verona Beverly MD [address] [place] [phone] [facility] Start: 05-05-2023 End: 05-05-2023 ambulatory 05/05/2023 8:00 AM EDT Treatment [facility] [address] [place] [phone] Verona Beverly MD [address] [place] [phone] [facility] Start: 05-01-2023 End: 05-01-2023 ambulatory 05/01/2023 8:00 AM EDT Treatment [facility] [address] [place] [phone] Verona Beverly MD [address] [place] [address] [facility] Start: 04-30-2023 End: 04-30-2023 ambulatory 04/30/2023 8:00 AM EDT Treatment [facility] [address] [place] [phone] Verona Beverly MD [address] [place] [address] [facility] Start: 04-28-2023 End: 04-28-2023 ambulatory 04/28/2023 8:00 AM EDT Treatment [facility] [address] [place] [phone] Verona Beverly MD [address] [place] [phone] [facility] Start: 04-24-2023 End: 04-24-2023 ambulatory 04/24/2023 8:00 AM EDT Treatment [facility] [address] [place] [phone] Verona Beverly MD [address] [place] [address] [facility] Start: 04-23-2023 End: 04-23-2023 ambulatory 04/23/2023 8:00 AM EDT Treatment [facility] [address] [place] [phone] Verona Beverly MD [address] [place] [id number] [facility] Start: 04-21-2023 End: 04-21-2023 ambulatory 04/21/2023 8:00 AM EDT Treatment [facility] [address] [place] [phone] Verona Beverly MD [address] [place] [address] [facility] Start: 04-17-2023 End: 04-17-2023 ambulatory 04/17/2023 8:00 AM EDT Treatment [facility] [address] [place] [phone] Verona Beverly MD [address] [place] [address] [facility] Start: 04-16-2023 End: 04-16-2023 ambulatory 04/16/2023 8:00 AM EDT Treatment [facility] [address] [place] [phone] Verona Beverly MD [address] [place] [phone] [facility] Start: 04-14-2023 End: 04-14-2023 ambulatory 04/14/2023 8:00 AM EDT Treatment [facility] [address] [place] [phone] Verona Beverly MD [address] [place] [phone] [facility] Start: 04-10-2023 End: 04-10-2023 ambulatory 04/10/2023 8:00 AM EDT Treatment [facility] [address] [place] [phone] Verona Beverly MD [address] [place] [address] [facility] Start: 04-09-2023 End: 04-09-2023 ambulatory 04/09/2023 8:00 AM EDT Treatment [facility] [address] [place] [phone] Verona Beverly MD [address] [place] [phone] [facility] Start: 04-07-2023 End: 04-07-2023 ambulatory 04/07/2023 8:00 AM EDT Treatment [facility] [address] [place] [phone] Verona Beverly MD [address] [place] [phone] [facility] Start: 04-03-2023 End: 04-03-2023 ambulatory 04/03/2023 8:00 AM EDT Treatment [facility] [address] [place] [phone] Verona Beverly MD [address] [place] [address] [facility] Start: 04-02-2023 End: 04-02-2023 ambulatory 04/02/2023 8:00 AM EDT Treatment [facility] [address] [place] [phone] Verona Beverly MD [address] [place] [address] [facility] Start: 03-31-2023 End: 03-31-2023 ambulatory 03/31/2023 8:00 AM EDT Treatment [facility] [address] [place] [phone] Verona Beverly MD [address] [place] [address] [facility] Start: 03-27-2023 End: 03-27-2023 ambulatory 03/27/2023 8:00 AM EDT Treatment [facility] [address] [place] [phone] Verona Beverly MD [address] [place] [address] [facility] Start: 03-26-2023 End: 03-26-2023 ambulatory 03/26/2023 8:00 AM EDT Treatment [facility] [address] [place] [phone] Verona Beverly MD [address] [place] [address] [facility] Start: 03-24-2023 End: 03-24-2023 ambulatory 03/24/2023 8:00 AM EDT Treatment [facility] [address] [place] [phone] Verona Beverly MD [address] [place] [address] [facility] Start: 03-20-2023 End: 03-20-2023 ambulatory 03/20/2023 8:00 AM EDT Treatment [facility] [address] [place] [phone] Verona Beverly MD [address] [place] [address] [facility] Start: 03-19-2023 End: 03-19-2023 ambulatory 03/19/2023 8:00 AM EDT Treatment [facility] [address] [facility] [place] [address] Verona Beverly MD [address] [facility] [place] [address] [facility] Start: 02-11-2023 Verification routine [facility] Start: 02-11-2023 Admission procedure [facility] Start: 2013 Fall risk assessment Falls Risk Assessment [facility] Start: 1998 Administration of herpes zoster vaccine Zoster Vaccines (1 of 2) [facility] Start: 1998 Screening for malignant neoplasm of colon Flexible sigmoidoscopy [facility] Start: 1966 Hepatitis C screening Hepatitis C Screening [facility] Start: 1960 Depression screening using PHQ-9 (Patient Health Questionnaire 9) score Depression Screening (PHQ-2/9) [facility] Start: 1954 Pneumococcal Vaccine: Age 65+ (1 - PCV) Pneumococcal Vaccine: Age 65+ (1 - PCV) [facility] Start: 1951 History and physical examination, annual for health maintenance Wellness Visit [facility] Start: 04-14-1949 COVID-19 Vaccine (#1) COVID-19 Vaccine (#1) [facility] Start: 1948 Prostate specific antigen measurement PSA Level [facility] Start: 1948 Screening for malignant neoplasm of colon [facility] Start: 1948 Tetanus vaccination Tetanus: Every 10yrs [facility] Patient referral [facility] Work Phone: Payers Date Payer Category Payer Self-pay [id number] 2017 Private Health Insurance [id number] 2013 Medicare [id number] 2013 Medicare MEDICARE MEDICAR E PART A & B [id number] 2013-Present [phone] [facility] [id number] PART A CLAIMS [address] [address] [place] [address] [id number]. [id number] 1948 Unknown [id number] 2.16.840.1.562236.3.579. 2.900 1948 Unknown [id number] 2.16.840.1.028546.3.579. 2.903 1948 Unknown [id number] 2.16.840.1.364884.3.579. 2.90 1948 Unknown [id number] 2.16.840.1.061432.3.579. 2.90 1948 Unknown [id number] 2.16.840.1.935570.3.579. 2. 1948 Unknown [id number] 2.16.840.1.238587.3.579. 2.903 1948 Unknown [id number] 2.16.840.1.830253.3.579. 2.90 1948 Unknown [id number] 2.16.840.1.727443.3.579. 2.903 1948 Unknown [id number] 2.16.840.1.187334.3.579. 2.90 1948 Unknown [id number] 2.16.840.1.102671.3.579. 2.903 1948 Unknown [id number] 2.16.840.1.257363.3.579. 2.90 1948 Unknown [id number] 2.16.840.1.630058.3.579. 2.903 1948 Unknown [id number] 2.16.840.1.428917.3.579. 2.90 1948 Unknown [id number] 2.16.840.1.694540.3.579. 2.3 1948 Unknown [id number] 2.16.840.1.019942.3.579. 2. 1948 Unknown [id number] 2.16.840.1.796423.3.579. 2. 1948 Unknown [id number] 2.16840.1.247990.3.579. 2. 1948 Unknown [id number] 2.16840.1.478986.3.579. 2. 1948 Unknown [id number] 2.16840.1.973099.3.579. 2 1948 Unknown [id number] 2.840.1.293234.3.579. 2 1948 Unknown [id number] 2.16840.1.406302.3.579. 2 1948 Unknown [id number] 2.840.1.966729.3.579. 2 1948 Unknown [id number] 2.16840.1.711202.3.579. 2 1948 Unknown [id number] 2.840.1.472287.3.579. 2 1948 Unknown [id number] 2.16840.1.559674.3.579. 2. 1948 Unknown [id number] 2.16840.1.716774.3.579. 2. 1948 Unknown [id number] 2.16840.1.212509.3.579. 2 1948 Unknown [id number] 2.16840.1.401484.3.579. 2 1948 Unknown [id number] 2.16840.1.527276.3.579. 2.3 1948 Unknown [id number] 2.16840.1.979640.3.579. 2. 1948 Unknown [id number] 2.16840.1.088144.3.579. 2. 1948 Unknown [id number] 2.16840.1.521294.3.579. 2 1948 Unknown [id number] 2.16840.1.834304.3.579. 2 1948 Unknown [id number] 2.840.1.385466.3.579. 2 1948 Unknown [id number] 2.840.1.939733.3.579. 2 1948 Unknown [id number] 2.840.1.382959.3.579. 2 1948 Unknown [id number] 2.840.1.397876.3.579. 2 1948 Unknown [id number] 2.840.1.796155.3.579. 2 1948 Unknown [id number] 2.840.1.438696.3.579. 2 1948 Unknown [id number] 2.16840.1.642229.3.579. 2 1948 Unknown [id number] 2.16840.1.385881.3.579. 2. 1948 Unknown [id number] 2.16840.1.301749.3.579. 2 1948 Unknown [id number] 2.16840.1.147195.3.579. 2 1948 Unknown [id number] 2.16840.1.132217.3.579. 2.903 1948 Unknown [id number] 2.16.840.1.324704.3.579. 2.903 Private Health Insurance [id number] Private Health Insurance JORGE MENDOZA OTHER AFTER MEDICARE [id number] Effective for all dates [phone] [address] [address] [place] [address] 1.2.840.800623.1.13.385. 2.7.3.199379.315 Unknown [id number] 2.16.840.1.857267.3.579. 2.462 Unknown [id number] 2.16.840.1.247637.3.579. 2.462 Unknown [id number] 2.16.840.1.180120.3.579. 2.462 Unknown [id number] 2.16.840.1.938275.3.579. 2.462 Unknown [id number] 2.16.840.1.400641.3.579. 2.462 Unknown [id number] 2.16.840.1.490234.3.579. 2.462 Unknown [id number] 2.16.840.1.597086.3.579. 2.462 Unknown [id number] 2.16.840.1.516298.3.579. 2.462 Unknown [id number] 2.16.840.1.028575.3.579. 2.462 Unknown [id number] 2.16.840.1.466847.3.579. 2.462 Social History Date Type Detail Facility Start: 02-11-2023 End: 06-09-2023 Tobacco smoking status NHIS Unknown if ever smoked [facility] Start: 1950 Sex Assigned At Male [facility] Start: 01-29-2023 Tobacco smoking status NHIS Never smoked tobacco [facility] Start: 01-29-2023 Tobacco use and exposure Smokeless tobacco non-user [facility] Start: 03-04-2023 End: 06-04-2023 History of Social function [facility] Start: 03-04-2023 End: 06-04-2023 Tobacco use panel [facility] Start: 1950 Sex Assigned At Not on file [facility] NEGATED: Highlighted rowStart: VERA History of tobacco use Passive smoker [facility] Medical Equipment Procedure Code Equipment Code Equipment Origin al Text Equipment Identifier Dates Drug-eluting coronary artery stent, [id number] lymer-coated [id number] FDA Start: 02-12-2023 Mental Status Date Assessment Result Facility 02-11-2023 Cognitive function Level Of Cons ciousness Awake;Alert;Appropriate [facility] Work Phone: Clinical Notes 03-13-2023 to 06-12-2023 Jayne Alford, PT - 06/12/2023 7:48 AM Jayne Goldman, PT - 06/11/2023 7:41 AM Jayne Goldman, PT - 06/02/2023 7:54 AM EDT Note Date & Type Note Facility 06-12-2023 History of Presen t illness Narrative Cardiac Rehab Session. Ref to daily session report in Procedures. Supervising Physician: Dr. White documented in this encounter [facility] 06-11-2023 History of Presen t illness Narrative Cardiac Rehab Session. Ref to daily session report in Procedures. Supervising Physician: Dr. Silverman documented in this encounter [facility] 06-02-2023 History of Presen t illness Narrative Cardiac Rehab Session. Ref to daily session report in Procedures. Supervising Physician: Dr. Beverly documented in this encounter [facility] 05-29-2023 History of Presen t illness Narrative Cardiac Rehab session. Refer to daily session report in procedures. Supervising Physician: Dr. White documented in this encounter [facility] 05-28-2023 History of Presen t illness Narrative Cardiac Rehab session. Refer to daily session report in procedures. Supervising Physician: Dr. Beverly documented in this encounter [facility] 05-26-2023 History of Presen t illness Narrative Cardiac Rehab Session. Ref to daily session report in Procedures. Supervising Physician: Dr. Beverly documented in this encounter [facility] 05-22-2023 History of Presen t illness Narrative Cardiac Rehab Session. Ref to daily session report in Procedures. Supervising Physician: Dr. Beverly documented in this encounter [facility] 05-21-2023 History of Presen t illness Narrative Cardiac Rehab Session. Ref to daily session report in Procedures. Supervising Physician: Dr. Silverman documented in this encounter [facility] 05-15-2023 History of Presen t illness Narrative Cardiac Rehab Session. Ref to daily session report in Procedures. Supervising Physician: Dr. Beverly documented in this encounter [facility] 05-14-2023 History of Presen t illness Narrative Cardiac Rehab Session. Ref to daily session report in Procedures. Supervising Physician: Dr. Silverman documented in this encounter [facility] 05-08-2023 History of Presen t illness Narrative Cardiac Rehab Session. Ref to daily session report in Procedures. Supervising Physician: Dr. Beverly documented in this encounter [facility] 05-07-2023 History of Presen t illness Narrative Cardiac Rehab Session. Ref to daily session report in Procedures. Supervising Physician: Dr. Beverly documented in this encounter [facility] 05-05-2023 History of Presen t illness Narrative Cardiac Rehab Session. Ref to daily session report in Procedures. Supervising Physician: Dr. Beverly documented in this encounter [facility] 05-01-2023 History of Presen t illness Narrative Cardiac Rehab Session. Ref to daily session report in Procedures. Supervising Physician: Dr. Beverly documented in this encounter [facility] 04-30-2023 History of Presen t illness Narrative Cardiac Rehab Session. Ref to daily session report in Procedures. Supervising Physician: Dr. Silverman documented in this encounter [facility] 04-28-2023 History of Presen t illness Narrative Cardiac Rehab Session. Ref to daily session report in Procedures. Supervising Physician: Dr. Beverly documented in this encounter [facility] 04-24-2023 History of Presen t illness Narrative Cardiac Rehab Session. Ref to daily session report in Procedures. Supervising Physician: Dr. Bethea documented in this encounter [facility] 04-23-2023 History of Presen t illness Narrative Cardiac Rehab Session. Ref to daily session report in Procedures. Supervising Physician: Dr. Bethea documented in this encounter [facility] 04-21-2023 History of Presen t illness Narrative Cardiac Rehab Session. Ref to daily session report in Procedures. Supervising Physician: Dr. White documented in this encounter [facility] 04-17-2023 History of Presen t illness Narrative Cardiac Rehab Session. Ref to daily session report in Procedures. Supervising Physician: Dr. White documented in this encounter [facility] 04-16-2023 History of Presen t illness Narrative Cardiac Rehab Session. Ref to daily session report in Procedures. Supervising Physician: Dr. Silverman documented in this encounter [facility] 04-14-2023 History of Presen t illness Narrative Cardiac Rehab Session. Ref to daily session report in Procedures. Supervising Physician: Dr. White documented in this encounter [facility] 04-09-2023 History of Presen t illness Narrative Cardiac Rehab Session. Ref to daily session report in Procedures. Supervising Physician: Dr. Beverly documented in this encounter [facility] 04-07-2023 History of Presen t illness Narrative Cardiac Rehab Session. Ref to daily session report in Procedures. Supervising Physician: Dr. Beverly documented in this encounter [facility] 04-03-2023 History of Presen t illness Narrative Cardiac Rehab Session. Ref to daily session report in Procedures. Supervising Physician: Dr. Beverly documented in this encounter [facility] 03-26-2023 History of Presen t illness Narrative Cardiac Rehab session. Refer to daily session report in procedures. Supervising Physician: Dr. Beverly documented in this encounter [facility] 03-19-2023 History of Presen t illness Narrative Cardiac Rehab session. Refer to daily session report in procedures. Supervising Physician: Dr. Beverly documented in this encounter [facility] 03-17-2023 History of Presen t illness Narrative Cardiac Rehab Session. Ref to daily session report in Procedures. Supervising Physician: Dr. Beverly documented in this encounter [facility] 03-13-2023 History of Presen t illness Narrative Cardiac Rehab Session. Ref to daily session report in Procedures. Supervising Physician: Dr. White documented in this encounter [facility] Evaluation note Diagnosis Onset Date Atrial fibrillation with rap id ventricular response acute Non-ST elevated myocardial i nfarction (non-STEMI) acute [facility] Work Phone: Evaluation note* Diagnosis S/P PTCA (percutaneous transluminal coronary angioplasty)- Primary Postsurgical percutaneous transluminal coronary angioplasty [facility] S/P PTCA (percutaneous transluminal coronary angioplasty)- Primary Postsurgical percutaneous transluminal coronary angioplasty [facility] Diagnosis S/P PTCA (percutaneous transluminal coronary angioplasty)- Primary Postsurgical percutaneous transluminal coronary angioplasty status [facility] Diagnosis S/P PTCA (percutaneous transluminal coronary angioplasty)- Primary Postsurgical percutaneous transluminal coronary angioplasty status [facility] Diagnosis S/P PTCA (percutaneous transluminal coronary angioplasty)- Primary Postsurgical percutaneous transluminal coronary angioplasty [facility] Diagnosis S/P PTCA (percutaneous transluminal coronary angioplasty)- Primary Postsurgical percutaneous transluminal coronary angioplasty status documented in this [facility]/P PTCA (percutaneous transluminal coronary angioplasty)- Primary Postsurgical percutaneous transluminal coronary angioplasty [facility] Diagnosis S/P PTCA (percutaneous transluminal coronary angioplasty)- Primary Postsurgical percutaneous transluminal coronary angioplasty [facility] Diagnosis S/P PTCA (percutaneous transluminal coronary angioplasty)- Primary Postsurgical percutaneous transluminal coronary angioplasty status [facility] Diagnosis S/P PTCA (percutaneous transluminal coronary angioplasty)- Primary Postsurgical percutaneous transluminal coronary angioplasty status [facility] Diagnosis S/P PTCA (percutaneous transluminal coronary angioplasty)- Primary Postsurgical percutaneous transluminal coronary angioplasty status [facility] Diagnosis S/P PTCA (percutaneous transluminal coronary angioplasty)- Primary Postsurgical percutaneous transluminal coronary angioplasty status [facility] Diagnosis S/P PTCA (percutaneous transluminal coronary angioplasty)- Primary Postsurgical percutaneous transluminal coronary angioplasty status [facility] Diagnosis S/P PTCA (percutaneous transluminal coronary angioplasty)- Primary Postsurgical percutaneous transluminal coronary angioplasty status [facility] Diagnosis S/P PTCA (percutaneous transluminal coronary angioplasty)- Primary Postsurgical percutaneous transluminal coronary angioplasty status [facility] Diagnosis S/P PTCA (percutaneous transluminal coronary angioplasty)- Primary Postsurgical percutaneous transluminal coronary angioplasty status [facility] Diagnosis S/P PTCA (percutaneous transluminal coronary angioplasty)- Primary Postsurgical percutaneous transluminal coronary angioplasty status [facility] Diagnosis S/P PTCA (percutaneous transluminal coronary angioplasty)- Primary Postsurgical percutaneous transluminal coronary angioplasty status [facility] Diagnosis S/P PTCA (percutaneous transluminal coronary angioplasty)- Primary Postsurgical percutaneous transluminal coronary angioplasty status [facility] Diagnosis S/P PTCA (percutaneous transluminal coronary angioplasty)- Primary Postsurgical percutaneous transluminal coronary angioplasty status [facility] Diagnosis S/P PTCA (percutaneous transluminal coronary angioplasty)- Primary Postsurgical percutaneous transluminal coronary angioplasty status [facility] Diagnosis S/P PTCA (percutaneous transluminal coronary angioplasty)- Primary Postsurgical percutaneous transluminal coronary angioplasty status [facility] Diagnosis S/P PTCA (percutaneous transluminal coronary angioplasty)- Primary Postsurgical percutaneous transluminal coronary angioplasty status [facility] Diagnosis S/P PTCA (percutaneous transluminal coronary angioplasty)- Primary Postsurgical percutaneous transluminal coronary angioplasty status [facility] Diagnosis S/P PTCA (percutaneous transluminal coronary angioplasty)- Primary Postsurgical percutaneous transluminal coronary angioplasty status [facility] Diagnosis S/P PTCA (percutaneous transluminal coronary angioplasty)- Primary Postsurgical percutaneous transluminal coronary angioplasty [facility] Diagnosis S/P PTCA (percutaneous transluminal coronary angioplasty)- Primary Postsurgical percutaneous transluminal coronary angioplasty [facility] Diagnosis Onset Date Resolution Status Atrial fibrillation acute Hyperlipemia, mixed acute 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 chronic CHF (congestive heart failure) chronic HTN (hypertension), benign c hronic [facility] Work Phone: Evaluation noteNo assessment information available [facility] Work Phone: Summary Purpose Family History No Family History Records Found Relationship Condition Age at Onset Recorded Date/T sheyla mother Coronary artery disease Unknown Relationship Condition Age at Onset Recorded Date/T sheyla mother Coronary artery disease Unknown sister Coronary artery disease 68 Advance Directives No Advanced Directives Records Found Advance Directive Response Recorded Date/ Time Living Will No February 11, 2023 1 2:06pm Power of Vp Foundation No February 11, 2023 12:06pm Advance Directive Response Recorded Date/ Time Living Will No February 11, 2023 1 :06pm Power of Vp Foundation No February 11, 2023 1:06pm Chief Complaint and Reason for Visit Chief Complaint AFIB W/ RVR, NON KHALIF GA Reason for Visit Atrial fibrillation with rapid ventricular response Non-ST elevated myocardial infarction (non-STEMI) Chief Complaint 4 M FU EORDER Reason for Visit Atrial fibrillation Hyperlipemia, mixed Atherosclerotic heart disease of [place] coronary artery without angina pectoris CHF (congestive heart failure) HTN (hypertension), benign Chief Complaint EORDER Additional Source Comments (unrecognized sect ion and content) No Status Records FoundNo Status Records FoundNo Status Records FoundNo Status Records Found INFORMATION SOURCE (unrecogn ized section and content) DATE CREATED AUTHOR 03/13/2019 [facility] DATE CREATED AUTHOR AUTHOR'S ORGANIZ ATION 06/17/2023 [facility] DATE CREATED AUTHOR AUTHOR'S ORGANIZ ATION 08/19/2023 [facility] DATE CREATED AUTHOR AUTHOR'S ORGANIZ ATION 03/31/2025 [facility] Care Teams (unrecognized sec tion and content) Team Status: Active Member Role Status Dates Dr. Heriberto Gerber MD Family Provider Active Dr. Heriberto Gerber MD Primary Care Provider Active Team Status: Active Member Role Status Dates Dr. Heriberto Gerber MD Primary Care Provider Active Dr. Raad Pierre DO Emergency Provider Active Dr. Aidee Stinson MD Admit Provider, Attending Prov ider Active Builder'S Labourer Relationship Specialty Start Date End Date No, Physician [facility] PCP - General 01/22/23 Builder[employer]S Labourer Relationship Specialty Start Date End Date No, Physician [facility] PCP - General 01/22/23 Builder'S Labourer Relationship Specialty Start Date End Date No, Physician [facility] PCP - General 01/22/23 Builder'S Labourer Relationship Specialty Start Date End Date No, Physician [facility] PCP - General 01/22/23 Builder'S Labourer Relationship Specialty Start Date End Date No, Physician [facility] PCP - General 01/22/23 Builder'S Labourer Relationship Specialty Start Date End Date No, Physician [facility] PCP - General 01/22/23 Builder'S Labourer Relationship Specialty Start Date End Date No, Physician [facility] PCP - General 01/22/23 Builder'S Labourer Relationship Specialty Start Date End Date No, Physician [facility] PCP - General 01/22/23 Builder'S Labourer Relationship Specialty Start Date End Date No, Physician [facility] PCP - General 01/22/23 Builder'S Labourer Relationship Specialty Start Date End Date No, Physician [facility] PCP - General 01/22/23 Builder'S Labourer Relationship Specialty Start Date End Date No, Physician [facility] PCP - General 01/22/23 Builder'S Labourer Relationship Specialty Start Date End Date No, Physician [facility] PCP - General 01/22/23 Builder'S Labourer Relationship Specialty Start Date End Date No, Physician [facility] PCP - General 01/22/23 Builder'S Labourer Relationship Specialty Start Date End Date No, Physician [facility] PCP - General 01/22/23 Builder'S Labourer Relationship Specialty Start Date End Date No, Physician [facility] PCP - General 01/22/23 Builder'S Labourer Relationship Specialty Start Date End Date No, Physician [facility] PCP - General 01/22/23 Builder'S Labourer Relationship Specialty Start Date End Date No, Physician [facility] PCP - General 01/22/23 Builder'S Labourer Relationship Specialty Start Date End Date No, Physician [facility] PCP - General 01/22/23 Builder'S Labourer Relationship Specialty Start Date End Date No, Physician [facility] PCP - General 01/22/23 Builder'S Labourer Relationship Specialty Start Date End Date No, Physician [facility] PCP - General 01/22/23 Builder'S Labourer Relationship Specialty Start Date End Date No, Physician [facility] PCP - General 01/22/23 Builder'S Labourer Relationship Specialty Start Date End Date No, Physician [facility] PCP - General 01/22/23 Builder'S Labourer Relationship Specialty Start Date End Date No, Physician [facility] PCP - General 01/22/23 Builder'S Labourer Relationship Specialty Start Date End Date No, Physician [facility] PCP - General 01/22/23 Builder'S Labourer Relationship Specialty Start Date End Date No, Physician [facility] PCP - General 01/22/23 Builder'S Labourer Relationship Specialty Start Date End Date No, Physician [facility] PCP - General 01/22/23 Builder'S Labourer Relationship Specialty Start Date End Date No, Physician [facility] PCP - General 01/22/23 Builder'S Labourer Relationship Specialty Start Date End Date No, Physician [facility] PCP - General 01/22/23 Builder'S Labourer Relationship Specialty Start Date End Date No, Physician [facility] PCP - General 01/22/23 Team Status: Inactive Member Role Status Dates Dr. Heriberto Gerber MD Primary Care Provider, Referring Provider Active Ramon Verdugo FILAMENT COIL WINDER, [employer]ENT COIL WINDER-C Attending Provider Active Team Status: Inactive Member Role Status Dates Dr. Heriberto Gerber MD Primary Care Provi barbara, Attending Provider, Referring Provider Active Goals (unrecognized section and content) Goals may be documented in a n alternate sectionGoals may be documented in an alternate sectionGoals may be documented in an alternate section Reason for Visit (unrecogniz ed section and content) Reason Comments Heart Problem Specialty Diagnoses / Procedures Referred By Contac t Referred To Contact Cardiac Rehabilitation Diagnoses Presence of coronary angioplasty implant and graft Non-STEMI (non-ST elevated myocardial infarction) (HCC) Atherosclerosis of [place] coronary artery of [place] heart without angina pectoris Xavier Euceda MD [address] [place] [address] [address] [place] [address] Referral ID Status Reason Start Date Expiration Date V isits Requested Visits Authorized [id number] Authorized 02/28/2023 02/28/2024 1 37 Reason Comments Chest Pain Specialty Diagnoses / Procedures Referred By Contac t Referred To Contact Cardiac Rehabilitation Diagnoses Presence of coronary angioplasty implant and graft Non-STEMI (non-ST elevated myocardial infarction) (HCC) Atherosclerosis [place] coronary artery of [place] heart without angina pectoris Xavier Euceda MD [address] [place] [id number] [facility] [address] [place] [address] Referral ID Status Reason Start Date Expiration Date Visits Re quested Visits Authorized [id number] Closed 02/28/2023 02/28/2024 1 37 FOR RECORDS PERTAINING TO PATIENTS WHO ARE OR HAVE BEEN ENROLLED IN A CHEMICAL DEPENDENCY/SUBSTANCEABUSE PROGRAM, SOME INFORMATION MAY BE OMITTED. This clinical summary was aggregated from multiple sources. Caution should be exercised in using it in the provision of clinical care. This summary normalizes information from multiple sources, and as a consequence, information in this document may materially change the coding, format and clinical context of patient data. In addition, data may be omitted in some cases. CLINICAL DECISIONS SHOULD BE BASED ON THE PRIMARY CLINICAL RECORDS. [facility] [employer] [facility]. provides no warranty or guarantee of the accuracy or completeness of information in this document.
== END | disposition home or self-care (01) ==
LOC: CVS 07:32
PROVIDERS: PCP Family Medicine; Referring Provider Surgery Vascular Surgery; Visit Provider Surgery Vascular Surgery
DX: I70.222 Atherosclerosis of native arteries of extremities with rest pain, left leg (principal); I48.0 Paroxysmal atrial fibrillation; M71.22 Synovial cyst of popliteal space [Baker], left knee; I70.213 Atherosclerosis of native arteries of extremities with intermittent claudication, bilateral legs; I10 Essential (primary) hypertension; E78.5 Hyperlipidemia, unspecified
CPT/HCPCS: 93922

== ENCOUNTER → 2025-06-15 | Outpatient (CLI) | payer MEDICARE, OTHER, SELFPAY ==
[2025-06-15 10:36] LABS: Anion Gap 9 (5-15); BUN 15 mg/dL (4-19); BUN/Creat Ratio 11.8 RATIO (10-20); Calcium,Total 9.1 mg/dL (7.6-11.0); Carbon Dioxide 26.5 mmol/L (21.0-32.0); Chloride 102 mmol/L (98-108); Cholesterol 234 mg/dL (<=200); Glucose 114 mg/dL (70-99); Low Density Lipoprotein Calc. 165 mg/dL; PSA,Total - Annual Screen 0.45 ng/mL (0.02-4.00); Potassium 4.5 mmol/L (3.3-5.1); Triglycerides 185 mg/dL; Very Low Density Lipoprotein 37 mg/dL (5-40); cholesterol:hdl ratio screen 7.20
== END | disposition home or self-care (01) ==
LOC: MFPLAB 08:20
PROVIDERS: PCP Family Medicine; Visit Provider Family Medicine
DX: Z00.00 Encounter for general adult medical examination without abnormal findings (principal)
CPT/HCPCS: 36415; 80048; 80061; 84153; G0103

== ENCOUNTER 2025-07-19 23:21 | Emergency (ER) | payer MEDICARE, OTHER, SELFPAY ==
[2025-07-19 23:23] VITALS: BP 212/128; PULSE 105; RESP 24; TEMP 35.8; O2SAT 93
[2025-07-19 23:28] VITALS: BMI 31.5
--- NOTE | 2025-07-19 23:30 | EKG12_ITS ---
Test Reason : DYSRHYTHMIA Blood Pressure : */* mmHG Vent. Rate : 100 BPM Atrial Rate : 117 BPM P-R Int : * ms QRS Dur : 140 ms QT Int : 376 ms P-R-T Axes : * 56 -24 degrees QTcB Int : 485 ms AFLUTTER WITH VARIABLE CONDUCTION Premature ventricular complexes Non-specific intra-ventricular conduction block T wave abnormality, consider inferior ischemia Abnormal ECG Confirmed by Robbin Parker ([id number]), continuity editor CRISTOBAL METCALF ([id number]) on 07/20/2025 10:41:30 AM Referred By: CHARLOTTE Confirmed By: Robbin Parker
[2025-07-19 23:31] VITALS: O2SAT 92
--- NOTE | 2025-07-19 23:50 | RAD_ITS ---
PROCEDURE: CHEST 1 VIEW (PORTABLE) 07/19/2025 REASON FOR EXAM: DYSPNEA TECHNIQUE: Frontal view of the chest. COMPARISON: 02/12/2020 FINDINGS: Hardware: The support lines and tubes are in stable and satisfactory position. Heart: Heart size is mildly enlarged. Lungs: Diffuse pulmonary vascular congestion. Bibasilar airspace opacities with trace pleural effusions. No definite pneumothorax. Bones: Degenerative changes are identified within the thoracic spine. RAD/Chest 1 View (Portable) IMPRESSION: 1. Mild cardiomegaly with diffuse pulmonary vascular congestion. 2. Bibasilar airspace opacities with trace pleural effusions. Reading Location: [facility]
[2025-07-20 00:04] LABS: Prothrombin Time (Protime)PT. 13.6 SECONDS (11.7-14.9)
[2025-07-20 00:05] LABS: Partial Thromboplast Time 30.4 Seconds (24.1-36.2)
--- OUTSIDE RECORDS SUMMARY | 2025-07-20 00:09 | XMS RPT_ITS | CCD ---
Author Organization [facility] Care Team Providers Care Cooler Service Supervisor Name Role Phone CHADD COREY Admitting Unavailable [...] Unavailable Dr. Heriberto Gerber Primary Care Provider [phone] Heriberto Gerber Referring Provider Roof ASSOCIATE DIRECTOR OF DEVELOPMENT, ASSOCIATE DIRECTOR OF DEVELOPMENT-C Ramon Reid Attending Provider VERONA BEVERLY Attending Unavailabl e NO, PHYSICIAN Primary Care Unavailable NO, PHYSICIAN Primary Care Unavailable GINNY, JUAN FRANCISCO M Admitting Unavailable GINNY, JUAN FRANCISCO M Referring Unavailable NO, PHYSICIAN Primary Care Unavailable GINNY, JUAN FRANCISCO M Attending Unavailable SIRIA, TEDDY Attending Unavailabl e NO, PHYSICIAN Primary Care Unavailable SIRIA, TEDDY Attending Unavailabl e NO, PHYSICIAN Primary Care Unavailable SIRIA, TEDDY Attending Unavailabl e NO, PHYSICIAN Primary Care Unavailable Dr. Heriberto Gerber MD Primary Care Provider Dr. Eliezer Canada MD Attending Provider Dr. Eliezer Canada MD Referring Provider Heriberto Gerber Primary Care Unavailable Heriberto Gerber Attending Unavailable Roof ASSOCIATE DIRECTOR OF DEVELOPMENT, Ramon Reid Attending Unavailable Roof ASSOCIATE DIRECTOR OF DEVELOPMENT, Ramon Reid Referring Unavailable Heriberto Gerber Primary Care Unavailable SpenceTania rizo Attending Unavailable SpenceElvin rizoison Referring Unavailable Heriberto Gerber Primary Care Unavailable Heriberto Gerber Primary Care Unavailable Spence, Tania Attending Unavailable Spence, Tania Referring Unavailable Gerber, Heriberto Primary Care Unavailable Nancie, Eliezer A Attending Unavailable Eliezer Canada A Referring Unavailable Gerber, Heriberto Primary Care Unavailable Canada, Eliezer A Attending Unavailable Canada, Eliezer A Referring Unavailable Gerber, Heriberto Primary Care Unavailable Canada, Eliezer A Referring Unavailable Eliezer Canada A Attending Unavailable Gerber, Heriberto Primary Care Unavailable Spence, Tania Attending Unavailable Gerber, Heriberto Referring Unavailable Gerber, Heriberto Primary Care Unavailable Spence, Tania Referring Unavailable Raad Leonard Attending Unavailable Kinsey, [place] Attending Unavailable Gerber, Heriberto Primary Care Unavailable Gerber, Heriberto Referring Unavailable Kinsey, Xavier Referring Unavailable Spence, Tania Attending Unavailable Gerber, Heriberto Primary Care Unavailable Allergies Allergy Classification Reported Allergen(s) Allergy Type Date of Onset Reaction(s) Facility (3 sources) Opioids - Morphine Analogues Propensity to adverse reactions 3 [facility] (1 source) Opioids - Morphine Analogues Drug allergy (disorder) 4 [facility] Repository Medications Current Medications Medication Drug Class(es) Dates Sig (Normalized) Sig (Original) aspirin 81 mg delayed release oral tablet (4 sources) Platelet Aggregation Inhibitor, Nonsteroidal Anti-inflammatory Drug Start: 07-23-2024 take 1 tablet by mouth once daily Aspirin (Adult Aspirin Regimen) 81 mg tablet,delayed release (DR/EC) Active 81 mg PO daily 90 July 23, 2024 1:00am Start: 02-14-2023 End: 03-07-2023 take 1 tablet by mouth once daily Aspirin 81 mg Tablet,Delayed Release (Dr/Ec) Discontinued 81 mg PO DAILY@0800 30 February 14, 2023 12:00am March 07, 2023 2:06pm ezetimibe 10 mg oral tablet (1 source) Dietary Cholesterol Absorption Inhibitor Start: 07-26-2024 take 1 tablet by mouth once daily Ezetimibe (Zetia) 10 mg tablet Active 10 mg PO daily 30 July 26, 2024 1:00am furosemide 40 mg oral tablet (13 sources) Loop Diuretic Start: 03-07-2023 End: 08-16-2024 take 1 tablet by mouth once daily Furosemide (Lasix) 40 mg tablet Active 40 mg PO DAILY 90 August 16, 2024 1:49pm Start: 02-17-2023 End: 03-07-2023 take 1 tablet by mouth twice daily Furosemide (Lasix) 40 mg tablet Discontinued 40 mg PO TWICE A DAY 60 February 17, 2023 10:03am March 07, 2023 1:51pm Start: 02-14-2023 End: 02-17-2023 take 1 tablet by mouth once daily Furosemide (Lasix) 40 mg tablet Discontinued 40 mg PO DAILY 30 February 14, 2023 12:00am February 17, 2023 10:03am losartan potassium 50 mg oral tablet (9 sources) Angiotensin 2 Receptor Nabeel Start: 04-10-2023 take 1 tablet by mouth twice daily Losartan 50 mg tablet Active 50 mg PO TWICE A DAY 180 April 10, 2023 12:10pm Start: 02-17-2023 End: 04-10-2023 take 1 tablet by mouth once daily Losartan 50 mg tablet Discontinued 50 mg PO DAILY 30 February 17, 2023 12:00am April 10, 2023 12:12pm Start: 02-14-2023 End: 02-17-2023 take 1 tablet by mouth once daily Losartan 25 mg Tablet Discontinued 25 mg PO DAILY 30 February 14, 2023 12:00am February 17, 2023 10:02am metoprolol tartrate 100 mg oral tablet (7 sources) beta-Adrenergic Nabeel Start: 02-14-2023 End: 08-12-2024 take 1 tablet by mouth twice daily Metoprolol Tartrate 100 mg tablet Active 100 mg PO TWICE A DAY 180 August 12, 2024 10:42am Completed/Discontinued Medications Medication Drug Class(es) Dates Sig (Normalized) Sig (Original) apixaban 5 mg oral tablet (6 sources) Factor Xa Inhibitor Start: 02-14-2023 End: 08-27-2024 take 1 tablet by mouth twice daily Apixaban (Eliquis) 5 mg tablet Discontinued 5 mg PO TWICE A DAY 60 April 10, 2023 12:11pm August 27, 2024 2:52pm atorvastatin 40 mg oral tablet (7 sources) HMG-CoA Reductase Inhibitor Start: 02-14-2023 End: 08-27-2024 Atorvastatin 40 mg tablet Discontinued 40 mg PO .QODay 90 4 July 26, 2024 2:55pm August 27, 2024 2:52pm dapagliflozin 10 mg oral tablet (3 sources) Sodium-Glucose Cotransporter 2 Inhibitor Start: 02-19-2023 End: 02-25-2023 take 1 tablet by mouth once daily Dapagliflozin Propanediol (Farxiga) 10 mg tablet Discontinued 10 mg PO DAILY 90 February 19, 2023 12:00am February 25, 2023 6:42pm empagliflozin 10 mg oral tablet (3 sources) Sodium-Glucose Cotransporter 2 Inhibitor Start: 02-28-2023 End: 08-27-2024 take 1 tablet by mouth once daily Empagliflozin (Jardiance) 10 mg tablet Discontinued 10 mg PO DAILY 90 February 28, 2023 12:00am August 27, 2024 2:52pm nitroglycerin 0.4 mg sublingual tablet (3 sources) Nitrate Vasodilator Start: 02-19-2023 End: 08-27-2024 Nitroglycerin 0.4 mg tablet, sublingual Discontinued 0.4 mg SL every 5 to 15 minutes as needed for chest pain 30 11February 19, 2023 12:00am August 27, 2024 2:52pm do not exceed 3 doses per episode Start: 02-19-2023 Nitroglycerin Active 0.4 MG SL every 5 to 15 minutes February 19, 2023 12:00am do not exceed 3 doses per episode ticagrelor 90 mg oral tablet (6 sources) Start: 02-14-2023 End: 07-23-2024 take 1 tablet by mouth twice daily Ticagrelor (Brilinta) 90 mg tablet Discontinued 90 mg PO TWICE A DAY 180 April 10, 2023 12:12pm July 23, 2024 3:05pm Problems Active Problems Problem Classification Problem Date Documented Date Episodic/Chronic Acute myocardial infarction (7 sources) Myocardial infarction; Translations: [Non-ST elevation (NSTEMI) myocardial infarction] Onset: 03-04-2023 02-11-2023 Chronic Cardiac dysrhythmias (9 sources) Atrial fibrillation with rapid ventricular response; Translations: [Unspecified atrial fibrillation] 02-11-2023 Chronic Congestive heart failure; nonhypertensive (7 sources) Heart failure with reduced ejection fraction; Translations: [Unspecified systolic (congestive) heart failure] 02-21-2023 Chronic Coronary atherosclerosis and other heart disease (6 sources) 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; Translations: [Coronary atherosclerosis] Onset: 03-04-2023 Chronic Disorders of lipid metabolism (5 sources) Mixed hyperlipidemia; Translations: [Mixed hyperlipidemia] Onset: 08-19-2024 02-19-2023 Chronic Essential hypertension (4 sources) Benign hypertension; Translations: [Essential (primary) hypertension] 03-07-2023 Chronic Other circulatory disease (1 source) Carotid bruit; Translations: [Other specified symptoms and signs involving the circulatory and respiratory systems] 08-27-2024 Episodic Peripheral and visceral atherosclerosis (4 sources) Intermittent claudication; Translations: [Peripheral vascular disease, unspecified] Onset: 10-08-2024 07-23-2024 Chronic Unclassified (1 source) Low back pain, unspecified; Translations: [Low back pain, unspecified] Onset: 08-27-2024 Past or Other Problems Problem Classification Problem Date Documented Da te Episodic/Chronic Coronary atherosclerosis and other heart disease (20 sources) Patient post percutaneous transluminal coronary angioplasty; Translations: [Coronary angioplasty status] Onset: 09-08-1998 03-17-2023 Episodic Comment on above: Successful KALIA to mR CA per Dr. Witt 02/12/23 Medtronic Resolute O nyx RX KALIA 4.0x30 to mid RCA Other circulatory disease (1 source) Other specified [...] Test Name Value Interpretation Reference Range Facility Basic Metabolic Profile (BMP )on 06-15-2025 BUN/CRE 11.8 RATIO Normal 06-27 [facility] Comment on above: Order Comment: PER P T-ONLY TO DO JULIETTE ORDER Performed By: #### L 500.4917, L501.9910, L500.4100 ####[facility] [address] [place], [place], [id number] Calcium [Mass/Vol] 9.1 mg/dL Normal 7.6-11.0 [facility] Comment on above: Order Comment: PER P T-ONLY TO DO JULIETTE ORDER Performed By: #### L 500.2500, L501.9910, L500.4100 ####[facility] [address] [place], [address] Chloride [Moles/Vol] 102 mmol/L Normal 98-108 [facility] Comment on above: Order Comment: PER P T-ONLY TO DO JULIETTE ORDER Performed By: #### L 500.2500, L501.9910, L500.4100 ####[facility] [address] [place], [address] CO2 [Moles/Vol] 26.5 mmol/L Normal 21.0-32.0 [facility] Comment on above: Order Comment: PER P T-ONLY TO DO JULIETTE ORDER Performed By: #### L 500.2500, L501.9910, L500.4100 ####[facility] [address] [place], [address] Creatinine [Mass/Vol] 1.23 mg/dL High 0.70-1.20 [facility] Comment on above: Order Comment: PER P T-ONLY TO DO JULIETTE ORDER Performed By: #### L 500.2500, L501.9910, L500.4100 ####[facility] [address] [place], [address] GAP 9 Normal 5-15 [facility] Comment on above: Order Comment: PER P T-ONLY TO DO JULIETTE ORDER Performed By: #### L 500.2500, L501.9910, L500.4100 ####[facility] [address] [place], [address] GFR/1.73 sq M.predicted among non-blacks MDRD (S/P/Bld) [Vol rate/Area] 61 mL/min/{1.73_m2} Normal >60 [facility] Comment on above: Order Comment: PER P T-ONLY TO DO JULIETTE ORDER Result Comment: mL/m in/1.73m2 CKD-EPI Creatinine Equation (2020) Performed By: #### L 500.2500, L501.9910, L500.4100 ####[facility] [address] [place], [address] Glucose [Mass/Vol] 114 mg/dL High 70-99 [facility] Comment on above: Order Comment: PER P T-ONLY TO DO JULIETTE ORDER Performed By: #### L 500.2500, L501.9910, L500.4100 ####[facility] [address] [place], [address] Potassium [Moles/Vol] 4.5 mmol/L Normal 3.3-5.1 [facility] Comment on above: Order Comment: PER P T-ONLY TO DO JULIETTE ORDER Performed By: #### L 500.2500, L501.9910, L500.4100 ####[facility] [address] [place], [address] Sodium [Moles/Vol] 138 mmol/L Normal 133-145 [facility] Comment on above: Order Comment: PER P T-ONLY TO DO JULIETTE ORDER Performed By: #### L 500.2500, L501.9910, L500.4100 ####[facility] [address] [place], [address] Urea nitrogen [Mass/Vol] 15 mg/dL Normal 4-19 [facility] Comment on above: Order Comment: PER P T-ONLY TO DO JULIETTE ORDER Performed By: #### L 500.2500, L501.9910, L500.4100 ####[facility] [address] [place], [address] Lipid Profileon 06-15-2025 CHOL:HDL 7.20 Normal [facility] Comment on above: Order Comment: PER P T-ONLY TO DO JULIETTE ORDER Performed By: #### L 500.2500, L501.9910, L500.4100 ####[facility] [address] [place], [address] Cholesterol [Mass/Vol] 234 mg/dL High <=200 [facility] Comment on above: Order Comment: PER P T-ONLY TO DO JULIETTE ORDER Result Comment: Chol esterol level, Desirable <200 mg/dL Borderline high cholesterol 200-239 mg/dL High cholesterol >=240 mg/dL Recommendations of the NCEP Adult Treatment Panel for the following risk-cutoff thresholds for the [place] population. Performed By: #### L 500.2500, L501.9910, L500.4100 ####[facility] [address] [place], [address] Cholesterol in HDL [Mass/Vol] 33 mg/dL Low [facility] Comment on above: Order Comment: PER P T-ONLY TO DO JULIETTE ORDER Result Comment: Sendy onal Cholesterol Education Program (NCEP) guidelines: <40 mg/dL: Low HDL-cholesterol (major risk factor for CHD) >= 60 mg/dL: High HDL-cholesterol (negative risk factor for CHD) HDL-cholesterol is affected by a number of factors, e.g. smoking, exercise, hormones, sex and age. Performed By: #### L 500.2500, L501.9910, L500.4100 ####[facility] [address] [place], [address] Cholesterol in LDL [Mass/Vol] 165 mg/dL Normal [facility] Comment on above: Order Comment: PER P T-ONLY TO DO JULIETTE ORDER Result Comment: Bord ztedyf=570-601 mg/dL Higher Xuyn=514 mg/dL or greater Friedwald Equation for LDL-C Performed By: #### L 500.2500, L501.9910, L500.4100 ####[facility] [address] [place], [address] Cholesterol in VLDL [Mass/Vol] 37 mg/dL Normal 5-40 [facility] Comment on above: Order Comment: PER P T-ONLY TO DO JULIETTE ORDER Performed By: #### L 500.2500, L501.9910, L500.4100 ####[facility] [address] [place], [address] Triglyceride [Mass/Vol] 185 mg/dL Normal W [facility] Comment on above: Order Comment: PER P T-ONLY TO DO JULIETTE ORDER Result Comment: The drugs N-Acetylcysteine and Metamizole may falsely depress this assay. Normal range: <150 mg/dL Borderline High: 150-199 mg/dL High: 200-499 mg/dL Very High: >500 mg/dL Performed By: #### L 500.2500, L501.9910, L500.4100 ####[facility] [address] [place], [address] PSA,Total - Annual Screenon 06-15-2025 PSA,TOT SCREEN 0.45 ng/mL Normal 0.02-4.00 [facility] Comment on above: Order Comment: PER P T-ONLY TO DO JULIETTE ORDER Result Comment: This test was performed using the [employer] tPSA method. Measured values of a patient??sample can vary depending on the testing procedure used. PSA values determined on patient samples by different testing procedures cannot be used interchangeably. If there is a change in PSA assays while monitoring therapy, sequential testing should be performed to confirm baseline values. Performed By: #### L 500.2500, L501.9910, L500.4100 ####[facility] [address] [place], [address] Ankle Brachial Indexon 04-01 Ankle Brachial Index [facility] [address] [place] [address] Ankle Brachial Index 04/01/25 0757 MR#: [id number] Acct: [id number] Name: ANISH RIVAS Rep #: [id number] : 1950 74 From: Eliezer Canada MD Attending Dr: Dr. Eliezer Canada MD Status: DE P CLI Ordering Dr: Eliezer Canada MD Date: 04/01/25 Location: [facility] Sex: M C Admitted: Reason For Study Reason For Study: Atherosclerosis Procedure A bilateral lower extremity continuous wave Doppler with analog waveform analysis and ankle brachial indexes. Left Segmental Pressures Left brachial= 195mmHg. Left posterior tibial artery = 127mmHg. Left dorsalis pedis artery = 124mmHg. Left digit = 102 mmHg. The left dorsalis pedis waveforms are biphasic. The left posterior tibial artery waveforms are biphasic. Right Segmental Pressures Right brachial= 196mmHg. Right posterior tibial artery = 123mmHg. Right dorsalis pedis artery = 161mmHg. Right digit = 115 mmHg. The right dorsalis pedis waveforms are biphasic. The right posterior tibial artery waveforms are biphasic. Indices The right ankle brachial index by the dorsalis pedis is 0.82. The right ankle brachial index by the posterior tibial artery is 0.63. The right digital-brachial index is 0.59. The left ankle brachial index by the dorsalis pedis is 0.63. The left ankle brachial index by the posterior tibial artery is 0.65. The left digital-brachial index is 0.52. VL/Ankle Brachial Index Interpretation Summary Resting ankle-brachial indices appear moderately abnormal bilaterally. Ordering Physician: Eliezer Canada Referring Physician: Heriberto Gerber Performed By: NOY CORONADO [facility] 05/04/25916 Date Eliezer Canada MD CC: Dr. Eliezer Canada MD; Dr. Heriberto Gerber MD Date Dictated: 04/01/25 0757 Date Transcribed: 05/04/25916 Retail Planner: Signed Normal [facility] CTA Abd w/Runoff W/WO Contra ston 10-20-2024 CTA Abd w/Runoff W/WO Contrast [facility] [address] [place], [place] [address] CTA Abd w/Runoff W/WO Contrast MR#: [id number] Acct: [id number] Name: ANISH RIVAS Rep #: [id number] : 1950 M 74 From: Eric wang MD PCP: Dr. Heriberto Gerber MD Status: REG CLI Study: CTA Abd w/Runoff W/WO Contrast Date of Exam: 0 10/20/24 Exam# [id number] Ordering Dr: Eliezer Canada MD PROCEDURE: CTA [...] use of iterative reconstruction technique). Reading Location: [facility] CC: Dr. Eliezer Canada MD; Dr. Heriberto Gerber MD Retail Planner: Signed Normal [facility] BUNon 2024 Urea nitrogen [Mass/Vol] 17 mg/dL Normal 7-18 [facility] Comment on above: Performed By: #### L 501.1000, L501.1105 ####[facility] [address] [facility] [place], [place], [id number] Lipid Profileon 2024 Cholesterol [Mass/Vol] 253 mg/dL High 200 [facility] Comment on above: Result Comment: <200 mg/dL Desirable 200-240 mg/dL Borderline >240 mg/dL High Risk Performed By: #### L 500.3400, L500.4100 #### [facility] [address] [place], [place], [address] Cholesterol in HDL [Mass/Vol] 38 mg/dL Low [facility] Comment on above: Result Comment: The drugs N-Acetylcysteine and Metamizole may falsely depress this assay. Reference Range HDL <40 mg/dL Low HDL Cholesterol HDL >or= 60 mg/dL High HDL Cholesterol Performed By: #### L 500.3400, L500.4100 #### [facility] [address] [place], [address] Cholesterol in LDL [Mass/Vol] 173 mg/dL High 0-130 [facility] Comment on above: Performed By: #### L 500.3400, L500.4100 #### [facility] [address] [place], [address] Cholesterol in VLDL [Mass/Vol] 42 mg/dL High 5-40 [facility] Comment on above: Performed By: #### L 500.3400, L500.4100 #### [facility] [address] [place], [address] Triglyceride [Mass/Vol] 212 mg/dL High W [facility] Comment on above: Result Comment: The drugs N-Acetylcysteine and Metamizole may falsely depress this assay. Serum Triglycerides Reference Interval Normal <150 mg/dL Borderline high 150 - 199 mg/dL High 200 - 499 mg/dL Very High > or = 500 mg/dL Performed By: #### L 500.3400, L500.4100 #### [facility] [address] [place], [address] Liver Profileon 2024 Albumin [Mass/Vol] 3.7 g/dL Normal 3.2-5.0 [facility] Comment on above: Performed By: #### L 500.3400, L500.4100 #### [facility] [address] [place], [address] ALK P 78 U/L Normal 45-117 [facility] Comment on above: Performed By: #### L 500.3400, L500.4100 #### [facility] [address] [place], [address] ALT [Catalytic activity/Vol] 32 U/L Normal 16-61 [facility] Comment on above: Performed By: #### L 500.3400, L500.4100 #### [facility] [address] [place], [address] AST [Catalytic activity/Vol] 16 U/L Normal 15-37 [facility] Comment on above: Performed By: #### L 500.3400, L500.4100 #### [facility] [address] [place], [address] Bilirubin [Mass/Vol] 1.00 mg/dL Normal 0.20-1.00 [facility] Comment on above: Result Comment: For patients on eltrombopag therapy, use of Dimension [place] TBIL is not recommended. Performed By: #### L 500.3400, L500.4100 #### [facility] [address] [place], [address] Bilirubin.direct [Mass/Vol] 0.17 mg/dL Normal 0.00-0.30 [facility] Comment on above: Performed By: #### L 500.3400, L500.4100 #### [facility] [address] [place], [address] Globulin (S) [Mass/Vol] 4.2 g/dL Normal 2.2-4.2 [facility] Comment on above: Performed By: #### L 500.3400, L500.4100 #### [facility] [address] [place], [address] T PROT 7.9 g/dL Normal 6.4-8.2 [facility] Comment on above: Performed By: #### L 500.3400, L500.4100 #### [facility] [address] [place], [address] Serum Creatinine AND GFRon 0 2- Creatinine [Mass/Vol] 1.36 mg/dL High 0.70-1.30 [facility] Comment on above: Result Comment: The validity of the calculated GFR GFRAA in patients over 70 years has not been determined. Clinical correlation is essential. Performed By: #### L 501.1000, L501.1105 ####[facility] [address] [place], [address] EST GFR - AA 66 mL/min Normal >60 [facility] Comment on above: Result Comment: Afri can [place] GFR Calc Performed By: #### L 501.1000, L501.1105 ####[facility] [address] [place], [address] GFR/1.73 sq M.predicted among non-blacks MDRD (S/P/Bld) [Vol rate/Area] 54 mL/min/{1.73_m2} Low >60 [facility] Comment on above: Result Comment: Non- GFR Calc Performed By: #### L 501.1000, L501.1105 ####[facility] [address] [place], [address] Carotid Duplex Ultrasoundon 09-16-2024 Carotid Duplex Ultrasound [facility] [address] [facility] [place] [address] Carotid Duplex Ultrasound 09/16/24 0805 MR#: [id number] Acct: [id number] Name: ANISH RIVAS Rep #: [id number] : 1950 73 From: Raad Leonard MD Attending Dr: FLORI Pope Status: REG CLI Ordering Dr: Tania Spence Date: 09/16/24 Location: [facility] Sex: M C Admitted: Reason For Study: [...] in the left bulb. Procedure Carotid Duplex 96973. This is a Carotid Duplex examination using B-mode, color flow and specral Doppler. The exam was diagnostic. Exam performed in department. VL/Carotid Duplex Ultrasound Interpretation Summary Mild (<50%) stenosis right extracranial internal carotid. Mild (<50%) stenosis left extracranial internal carotid. Patent and antegrade vertebrals bilaterally. Ordering Physician: Tania Spence Referring Physician: Heriberto Gerber Performed By: Terrance Fleming RVT 09/16/24 181 Date Raad Leonard MD CC: FLORI Pope; Dr. Heriberto Gerber MD Date Dictated: 09/16/24804 Date Transcribed: 09/16/241812 Retail Planner: Signed Normal [facility] Lower Ext Art Exam w/ Exerci bonnie 09-16-2024 Lower Ext Art Exam w/ Exercise [facility] [address] [place] [address] Lower Ext Art Exam w/ Exercise 09/16/24814 MR#: [id number] Acct: [id number] Name: ANISH RIVAS Rep #: [id number] : 1950 73 From: Raad Leonard MD Attending Dr: FLORI Pope Status: REG CLI Ordering Dr: Tania Spence Date: 09/16/24 Location: [facility] Sex: M C Admitted: Reason For Study: [...] MD Date Dictated: 09/16/24814 Date Transcribed: 09/16/241821 Retail Planner: Signed Normal [facility] Lumbar Spine 2 or 3 Viewson 08-27-2024 Lumbar Spine 2 or 3 Views [facility] [address] [place], [place] [address] Lumbar Spine 2 or 3 Views MR#: [id number] Acct: [id number] Name: ANISH RIVAS Rep #: [id number] : 1950 M 73 From: Samuel Brewer MD PCP: Dr. Heriberto Gerber MD Status: [facility] Study: Lumbar Spine 2 or 3 Views Date of Exam: Exam# [id number] Ordering Dr: Tania Spence [id number] EXAM: XR LUMBOSACRAL SPINE, 2 OR 3 [...] CC: FLORI Pope; Dr. Heriberto Gerber MD Retail Planner: Signed Normal [facility] MR/BMS.BVSon 08-27-2024 MR/BMS.BVS [facility] [address] [place] [address]. [address] [place] [address] OFFICE VISIT Date of Service: 08/27/24 MR#: [id number] Acct: [id number] Name: ANISH RIVAS Rep #: [id number] : 1950 Provider: FLORI Pope Age/Sex: 73/M [place] [facility] [place] Status: Signed Intake Vital Signs [...] reduced ejection fraction) 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 HTN (hypertension), [...] for evaluation of claudication as referred from [facility]. He reports LLE aching/cramping with walking and [...] alert, umesh (more content not included)... Normal [facility] Basic Metabolic Profile (BMP )on 07-23-2024 BUN/CRE 16.3 RATIO Normal -20 [facility] Comment on above: Performed By: #### L 500.2500, L500.4100, L500.3400 #### [facility] [address] [place], [address] CA,Total 8.7 mg/dL Normal 8.5-10.1 [facility] Comment on above: Performed By: #### L 500.2500, L500.4100, L500.3400 #### [facility] [address] [place], [address] Chloride [Moles/Vol] 103 mmol/L Normal 98-107 [facility] Comment on above: Performed By: #### L 500.2500, L500.4100, L500.3400 #### [facility] [address] [place], [address] CO2 [Moles/Vol] 29.0 mmol/L Normal 21.0-32.0 [facility] Comment on above: Performed By: #### L 500.2500, L500.4100, L500.3400 #### [facility] [address] [place], [address] Creatinine [Mass/Vol] 1.29 mg/dL Normal 0.70-1.30 [facility] Comment on above: Result Comment: The validity of the calculated GFR GFRAA in patients over 70 years has not been determined. Clinical correlation is essential. Performed By: #### L 500.2500, L500.4100, L500.3400 #### [facility] [address] [place], [address] EST GFR - AA 70 mL/min Normal >60 [facility] Comment on above: Result Comment: Afri can [place] GFR Calc Performed By: #### L 500.2500, L500.4100, L500.3400 #### [facility] [address] [place], [address] GAP 4 Low 5-15 [facility] Comment on above: Performed By: #### L 500.2500, L500.4100, L500.3400 #### [facility] [address] [place], [address] GFR/1.73 sq M.predicted among non-blacks MDRD (S/P/Bld) [Vol rate/Area] 58 mL/min/{1.73_m2} Low >60 [facility] Comment on above: Result Comment: Non- GFR Calc Performed By: #### L 500.2500, L500.4100, L500.3400 #### [facility] [address] [place], [address] Glucose [Mass/Vol] 112 mg/dL High 74-106 [facility] Comment on above: Result Comment: Fast ing Glucose result from 100 to 125 mg/dL suggests IMPAIRED HOMEOSTASIS per A.D.A. criteria. Performed By: #### L 500.2500, L500.4100, L500.3400 #### [facility] [address] [place], [address] Potassium [Moles/Vol] 3.8 mmol/L Normal 3.5-5.1 [facility] Comment on above: Performed By: #### L 500.2500, L500.4100, L500.3400 #### [facility] [address] [place], [address] Sodium [Moles/Vol] 136 mmol/L Normal 136-145 [facility] Comment on above: Performed By: #### L 500.2500, L500.4100, L500.3400 #### [facility] [address] [place], [address] Urea nitrogen [Mass/Vol] 21 mg/dL High 7-18 [facility] Comment on above: Performed By: #### L 500.2500, L500.4100, L500.3400 #### [facility] [address] [place], [address] Cardiology Visit Reporton Cardiology Visit Report [facility] [address] [place] [address] OFFICE VISIT Date of Service: 07/23/24 MR#: [id number] Acct: [id number] Name: ANISH RIVAS Rep #: [id number] : 1950 Provider: Dr. Xavier Euceda MD Age/Sex: 73/M [place] [facility] [place] Status: Signed HPI HPI History of Present Illness Details: This is a 73-year-old male presents the office today for a post hospital follow-up visit. 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 Normal [facility] Lipid Profileon 07-23-2024 Cholesterol [Mass/Vol] 290 mg/dL High 200 [facility] Comment on above: Result Comment: <200 mg/dL Desirable 200-240 mg/dL Borderline >240 mg/dL High Risk Performed By: #### L 500.2500, L500.4100, L500.3400 #### [facility] [address] [place], [address] Cholesterol in HDL [Mass/Vol] 33 mg/dL Low [facility] Comment on above: Result Comment: The drugs N-Acetylcysteine and Metamizole may falsely depress this assay. Reference Range HDL <40 mg/dL Low HDL Cholesterol HDL >or= 60 mg/dL High HDL Cholesterol Performed By: #### L 500.2500, L500.4100, L500.3400 #### [facility] [address] [place], [address] Cholesterol in LDL [Mass/Vol] 183 mg/dL High 0-130 [facility] Comment on above: Performed By: #### L 500.2500, L500.4100, L500.3400 #### [facility] [address] [place], [address] Cholesterol in VLDL [Mass/Vol] 74 mg/dL High 5-40 [facility] Comment on above: Performed By: #### L 500.2500, L500.4100, L500.3400 #### [facility] [address] [place], [address] Triglyceride [Mass/Vol] 369 mg/dL High [facility] Comment on above: Result Comment: The drugs N-Acetylcysteine and Metamizole may falsely depress this assay. Serum Triglycerides Reference Interval Normal <150 mg/dL Borderline high 150 - 199 mg/dL High 200 - 499 mg/dL Very High > or = 500 mg/dL Performed By: #### L 500.2500, L500.4100, L500.3400 #### [facility] [address] [place], [address] Liver Profileon 07-23-2024 Albumin [Mass/Vol] 3.6 g/dL Normal 3.2-5.0 [facility] Comment on above: Performed By: #### L 500.2500, L500.4100, L500.3400 #### [facility] [address] [place], [address] ALK P 89 U/L Normal 45-117 [facility] Comment on above: Performed By: #### L 500.2500, L500.4100, L500.3400 #### [facility] [address] [place], [address] ALT [Catalytic activity/Vol] 23 U/L Normal 16-61 [facility] Comment on above: Performed By: #### L 500.2500, L500.4100, L500.3400 #### [facility] [address] [place], [address] AST [Catalytic activity/Vol] 18 U/L Normal 15-37 [facility] Comment on above: Performed By: #### L 500.2500, L500.4100, L500.3400 #### [facility] [address] [place], [address] Bilirubin [Mass/Vol] 0.60 mg/dL Normal 0.20-1.00 [facility] Comment on above: Result Comment: For patients on eltrombopag therapy, use of Dimension [place] TBIL is not recommended. Performed By: #### L 500.2500, L500.4100, L500.3400 #### [facility] [address] [place], [address] Bilirubin.direct [Mass/Vol] 0.12 mg/dL Normal 0.00-0.30 [facility] Comment on above: Performed By: #### L 500.2500, L500.4100, L500.3400 #### [facility] [address] [place], [address] Globulin (S) [Mass/Vol] 4.0 g/dL Normal 2.2-4.2 [facility] Comment on above: Performed By: #### L 500.2500, L500.4100, L500.3400 #### [facility] [address] [place], [address] T PROT 7.6 g/dL Normal 6.4-8.2 [facility] Comment on above: Performed By: #### L 500.2500, L500.4100, L500.3400 #### [facility] [address] [place], [address] Basophil percentageOrdered B y: Heriberto Gerber on 11-19-2023 Bilirubin [Mass/Vol] 0.90 mg/dL 0.20-1.00 [facility] Comment on above: For patients on eltr ombopag therapy, use of Dimension [place] TBIL is not recommended. Chloride [Moles/Vol] 103 mmol/L 98-107 [facility] Cholesterol [Mass/Vol] 197 mg/dL <200 [facility] Comment on above: <200 mg/dL Desirable 200-240 mg/dL Borderline >240 mg/dL High Risk Glucose [Mass/Vol] 105 mg/dL 74-106 [facility] Comment on above: Fasting Glucose resu lt from 100 to 125 mg/dL suggests IMPAIRED HOMEOSTASIS per A.D.A. criteria. Potassium [Moles/Vol] 4.1 mmol/L 3.5-5.1 [facility] Protein [Mass/Vol] 7.6 g/dL 6.4-8.2 [facility] Sodium [Moles/Vol] 139 mmol/L 136-145 [facility] Triglyceride [Mass/Vol] 166 mg/dL <199 [facility] Comment on above: The drugs N-Acetylcy steine and Metamizole may falsely depress this assay.Serum Triglycerides Reference Interval Normal <150 mg/dL Borderline high 150 - 199 mg/dL High 200 - 499 mg/dL Very High > or = 500 mg/dL Laboratory - Chemistry and C hemistry - challengeOrdered By: Heriberto Gerber on 11-19-2023 Albumin/Globulin [Mass ratio] 0.9 {ratio} 0.9-2.4 [facility] ALP [Catalytic activity/Vol] 76 U/L 45-117 [facility] ALT [Catalytic activity/Vol] 24 U/L 16-61 [facility] Cholesterol in HDL [Mass/Vol] 35 mg/dL >40 [facility] Comment on above: The drugs N-Acetylcy steine and Metamizole may falsely depress this assay. Reference Range HDL <40 mg/dL Low HDL Cholesterol HDL >or= 60 mg/dL High HDL Cholesterol Cholesterol in LDL [Mass/Vol] 129 mg/dL 0-130 [facility] CO2 [Moles/Vol] 28.0 mmol/L 21.0-32.0 [facility] Globulin (S) [Mass/Vol] 3.9 g/dL 2.2-4.2 [facility] Urea nitrogen/Creatinine [Mass ratio] 12.0 mg/mg 10-20 [facility] No Panel InformationOrdered By: Heriberto Gerber on 11-19-2023 Estimated GFR (MDRD) Amer 63 mL/min >60 [facility] Comment on above: GFR Calc Estimated GFR (MDRD) Non-Af Amer 52 mL/min >60 [facility] Comment on above: Non- GFR Calc VLDL Cholesterol 33 mg/dL 5-40 [facility] Serum or plasma calcium yamilet urement (mass/volume)Ordered By: Heriberto Gerber on 11-19-2023 Calcium [Mass/Vol] 9.0 mg/dL 8.5-10.1 [facility] Serum or plasma creatinine m easurement (mass/volume)Ordered By: Heriberto Gerber on 11-19-2023 Creatinine [Mass/Vol] 1.42 mg/dL 0.70-1.30 [facility] Comment on above: The validity of the calculated GFR & GFRAA in patients over 70 years has not been determined. Clinical correlation is essential. Serum or plasma urea nitroge n measurement (mass/volume)Ordered By: Heriberto Gerber on 11-19-2023 Urea nitrogen [Mass/Vol] 17 mg/dL 7-18 [facility] Thin prep Papanicolaou smear with manual screeningOrdered By: Heriberto Gerber on 11-19-2023 Thin prep Papanicolaou smear with manual screening 3.7 g/dL 3.2-5.0 [facility] Thin prep Papanicolaou smear with manual screening 19 U/L 15-37 [facility] Thin prep Papanicolaou smear with manual screening 8 5-15 [facility] Basophil percentageOrdered B y: Heriberto Gerber on 08-13-2023 Chloride [Moles/Vol] 101 mmol/L 98-107 [facility] Cholesterol [Mass/Vol] 289 mg/dL <200 [facility] Comment on above: <200 mg/dL Desirable 200-240 mg/dL Borderline >240 mg/dL High Risk Glucose [Mass/Vol] 125 mg/dL 74-106 [facility] Comment on above: Fasting Glucose resu lt from 100 to 125 mg/dL suggests IMPAIRED HOMEOSTASIS per A.D.A. criteria. Potassium [Moles/Vol] 3.7 mmol/L 3.5-5.1 [facility] Sodium [Moles/Vol] 136 mmol/L 136-145 [facility] Triglyceride [Mass/Vol] 373 mg/dL <199 [facility] Comment on above: The drugs N-Acetylcy steine and Metamizole may falsely depress this assay.Serum Triglycerides Reference Interval Normal <150 mg/dL Borderline high 150 - 199 mg/dL High 200 - 499 mg/dL Very High > or = 500 mg/dL Laboratory - Chemistry and C hemistry - challengeOrdered By: Heriberto Gerber on 08-13-2023 CO2 [Moles/Vol] 31.0 mmol/L 21.0-32.0 [facility] Urea nitrogen/Creatinine [Mass ratio] 15.9 mg/mg 10-20 [facility] No Panel InformationOrdered By: Heriberto Gerber on 08-13-2023 Estimated GFR (MDRD) Amer 56 mL/min >60 [facility] Comment on above: GFR Calc Estimated GFR (MDRD) Non-Af Amer 46 mL/min >60 [facility] Comment on above: Non- GFR Calc Prostate Specific Antigen Screen 0.67 ng/mL 0.00-4.00 [facility] Comment on above: This test was perfor med using the TPSA assay method for [employer] chemistry system. Values obtained with differentassay methods cannot be used interchangably.When changing PSA assays in the course of monitoring apatient, additional sequential testing should be carriedout to confirm baseline values. Serum or plasma calcium yamilet urement (mass/volume)Ordered By: Heriberto Gerber on 08-13-2023 Calcium [Mass/Vol] 9.6 mg/dL 8.5-10.1 [facility] Serum or plasma cholesterol in HDL measurement (mass/volume)Ordered By: Heriberto Gerber on 08-13-2023 Cholesterol in HDL [Mass/Vol] 33 mg/dL >40 [facility] Comment on above: The drugs N-Acetylcy steine and Metamizole may falsely depress this assay. Reference Range HDL <40 mg/dL Low HDL Cholesterol HDL >or= 60 mg/dL High HDL Cholesterol Serum or plasma cholesterol in VLDL measurement (mass/volume)Ordered By: Heriberto Gerber on 08-13-2023 Cholesterol in VLDL [Mass/Vol] 75 mg/dL 5-40 [facility] Serum or plasma creatinine m easurement (mass/volume)Ordered By: Heriberto Gerber on 08-13-2023 Creatinine [Mass/Vol] 1.57 mg/dL 0.70-1.30 [facility] Comment on above: The validity of the calculated GFR & GFRAA in patients over 70 years has not been determined. Clinical correlation is essential. Serum or plasma low density lipoprotein (LDL) cholesterol measurement (mass/volume)Ordered By: Heriberto Gerber on 08-13-2023 Cholesterol in LDL [Mass/Vol] 181 mg/dL 0-130 [facility] Serum or plasma urea nitroge n measurement (mass/volume)Ordered By: eHriberto Gerber on 08-13-2023 Urea nitrogen [Mass/Vol] 25 mg/dL 7-18 [facility] Thin prep Papanicolaou smear with manual screeningOrdered By: Heriberto Gerber on 08-13-2023 Thin prep Papanicolaou smear with manual screening 4 5-15 [facility] No Panel Informationon 06-12 ANGINA N [facility] ENDING HR 74 [facility] EXT - ADMIT TO CR DATE 03/04/2023 [facility] Max HR 89 [facility] Max Mets 4.4 [facility] MODE Treadmill [facility] MOST RECENT SESSION 35 [facility] ealth RESTING HR 74 [facility] SESSION DATE 06/12/2023 [facility] SESSION DAYS [facility] SESSION LENGTH 0:51:44 [facility] SESSION LIST Session List: 03/05/2023N 03/06/2023N 03/10/2023N 03/12/2023N 1.07Y 2.07Y 3.07Y 4.07Y 5.07Y 6.07Y 7.07Y 8.07Y 9.07Y10.07/2 03/20237716F38.04/07/2023 Y12.08/10/2022Y 13.08/11/2022Y14.08/ 03/2023Y15.08/ 3Y16.08/06/2023Y 17./Y18.08/ Y19.08/ 3Y20./Y 21./Y22.Y23. 3Y24.05/07/2023Y 25.05/08/2023Y26./ 02/2023Y27. 3Y28.05/19/2023Y 29./Y30.Y31. 3Y32.05/28/2023Y 33.05/29/2023Y34.Y 06/04/2023N 06/05/2023N 06/09/2023N35.2022Y36.06/12/2023Y Scheduled:43 Attended:36 Compliance:83% [facility] SESSION NUMBER 36 [facility] SESSION THR 104 [facility] STATUS [facility] MONITORED CARDIAC REHAB CHRISTIAN Chavarria 06-02-2023 ANGINA N [facility] ENDING HR 78 [facility] EXT - ADMIT TO CR DATE 03/04/2023 [facility] Max HR 94 [facility] Max Mets 4.4 [facility] MODE Treadmill [facility] MOST RECENT SESSION 33 [facility] ealth RESTING HR 61 [facility] SESSION DATE 06/02/2023 [facility] SESSION DAYS [facility] SESSION LENGTH 0:50:16 [facility] SESSION LIST Session List: 03/05/2023N 03/06/2023N 03/10/2023N 03/12/2023N 1.07/02/2023Y 2.07Y 3.07Y 4.07Y 5.07Y 6.07Y 7.03/27/2023Y 8.03/31/2023Y 9.04/02/2023Y10.07/2 03/20232685G98.04/07/2023 Y12.08/10/2022Y 13.08/11/2022Y14.0803/2023Y15.08/ 3Y16.08/06/2023Y 17./Y18.08/ Y19. 3Y20./Y 21.04/30/2023Y22.Y23. 3Y24.05/07/2023Y 25.05/08/2023Y26.02/2023Y27.09 3Y28.09/07/2023Y 29./Y30.Y31. 3Y32.05/28/2023Y 33.05/29/2023Y34.Y Scheduled:38 Attended:34 Compliance:89% [facility] SESSION NUMBER 34 [facility] SESSION THR 91 [facility] STATUS Cardiac Phase [facility] MONITORED CARDIAC REHAB CHRISTIAN Chavarria 05-29-2023 ANGINA N [facility] ENDING HR 85 [facility] EXT - ADMIT TO CR DATE 03/04/2023 [facility] Max HR 91 [facility] Max Mets 4.4 [facility] MODE Treadmill [facility] MOST RECENT SESSION 32 [facility] ealt RESTING HR 54 [facility] SESSION DATE 05/29/2023 [facility] SESSION DAYS [facility] SESSION LENGTH 0:44:16 [facility] SESSION LIST Session List: 03/05/2023N 03/06/2023N 03/10/2023N 03/12/2023N 1.07Y 2.07Y 3.07Y 4.07Y 5.07Y 6.07Y 7.07Y 8.07Y 9.07Y10.07/2 03/20238492P76.04/07/2023 Y12.08/10/2022Y 13.08Y14.0803/2023Y15.08 3Y16.08/06/2023Y 17.08/Y18.08/ Y19.08/ 3Y20.08/Y 21.04/30/2023Y22.Y23. 3Y24.05/07/2023Y 25.05/08/2023Y26.0902/2023Y27.09/ 3Y28.05/19/2023Y 29.05/21/2023Y30.Y31. 3Y32.05/28/2023Y 33.05/29/2023Y Scheduled:37 Attended:33 Compliance:89% [facility] SESSION NUMBER 33 [facility] SESSION THR 84 [facility] STATUS Cardiac Phase II [facility] No Panel InformationOrdered By: Anita Duarte on 05-28-2023 ANGINA N [facility] ENDING HR 89 [facility] EXT - ADMIT TO CR DATE 03/04/2023 [facility] Max HR 97 [facility] Max Mets 4.4 [facility] MODE Treadmill [facility] MOST RECENT SESSION 31 [facility] ealt RESTING HR 101 [facility] SESSION DATE 05/28/2023 [facility] SESSION DAYS [facility] SESSION LENGTH 0:57:24 [facility] SESSION LIST Session List: 03/05/2023N 03/06/2023N 03/10/2023N 03/12/2023N 1.07Y 2.07Y 3.07Y 4.07Y 5.07Y 6.07Y 7.07Y 8.07Y 9.07Y10.07/2 03/20237538O25.04/07/2023 Y12.08/10/2022Y 13.08/11/2022Y14.08/ 03/2023Y15.08 3Y16.08/06/2023Y 17./Y18.08/ Y19. 3Y20.04/28/2023Y 21.08Y22.Y23. 3Y24.05/07/2023Y 25.05/08/2023Y26.02/2023Y27. 3Y28.05/19/2023Y 29.05/21/2023Y30.Y31. 3Y32.05/28/2023Y Scheduled:36 Attended:32 Compliance:88% [facility] SESSION NUMBER 32 [facility] SESSION THR 131 [facility] STATUS Cardiac Phase II [facility] MONITORED CARDIAC REHAB CHRISTIAN Chavarria 05-26-2023 ANGINA N [facility] ENDING HR 88 [facility] EXT - ADMIT TO CR DATE 03/04/2023 [facility] Max Mets 4.4 [facility] MODE Treadmill [facility] MOST RECENT SESSION 30 [facility] ealt RESTING HR 62 [facility] SESSION DATE 05/26/2023 [facility] SESSION DAYS [facility] SESSION LENGTH 0:47:52 [facility] SESSION LIST Session List: 03/05/2023N 03/06/2023N 03/10/2023N 03/12/2023N 1.07/02/2023Y 2.07/06/2023Y 3.07Y 4.03/20/2023Y 5.07Y 6.07Y 7.03/27/2023Y 8.07Y 9.07Y10.07/2 03/20233012Z47.04/07/2023 Y12.08/10/2022Y 13.08/11/2022Y14.08/ 03/2023Y15.08/ 3Y16.08/06/2023Y 17.08/Y18.08/ Y19.08/ 3Y20.08/Y 21.08/Y22.08/ Y23. 3Y24.08Y 25.08Y26.0902/2023Y27.09 3Y28.09/07/2023Y 29./Y30.Y31. 3Y Scheduled:35 Attended:31 Compliance:88% [facility] SESSION NUMBER 31 [facility] SESSION THR 92 [facility] STATUS Cardiac Phase II [facility] MONITORED CARDIAC REHAB CHRISTIAN Chavarria 05-21-2023 ANGINA N [facility] ENDING HR 78 [facility] EXT - ADMIT TO CR DATE 03/04/2023 [facility] 95 [facility] Max Mets 4.2 [facility] MODE Treadmill [facility] MOST RECENT SESSION 28 [facility] ealt RESTING HR 69 [facility] SESSION DATE 05/21/2023 [facility] SESSION DAYS [facility] SESSION LENGTH 0:56:48 [facility] SESSION LIST Session List: 03/05/2023N 03/06/2023N 03/10/2023N 03/12/2023N 1.07Y 2.07Y 3.07Y 4.03/20/2023Y 5.07Y 6.07Y 7.07Y 8.07Y 9.07Y10.07/03/2023Y11.04/07/2023 Y12.08/10/2022Y 13./11/2022Y14.08/ 03/2023Y15.08/ 3Y16.08/06/2023Y 17.08/Y18.08/ Y19.08/ 3Y20.08/Y 21.08/Y22.08/ Y23. 3Y24.05/07/2023Y 25.05/08/2023Y26.02/2023Y27. 3Y28.05/19/2023Y 29.05/21/2023Y Scheduled:33 Attended:29 Compliance:87% [facility] SESSION NUMBER 29 [facility] SESSION THR 100 [facility] STATUS Cardiac Phase II [facility] MONITORED CARDIAC REHAB SESNiels CASTon 05-15-2023 ANGINA N [facility] ENDING HR 87 [facility] EXT - ADMIT TO CR DATE 03/04/2023 [facility] Max HR 91 [facility] Max Mets 4.2 [facility] MODE Treadmill [facility] MOST RECENT SESSION 26 [facility] ealt RESTING HR 67 [facility] SESSION DATE 05/15/2023 [facility] SESSION DAYS [facility] SESSION LENGTH 0:55:08 [facility] SESSION LIST Session List: 03/05/2023N 03/06/2023N 03/10/2023N 03/12/2023N 1.03/13/2023Y 2.07/06/2023Y 3.07/08/2023Y 4.07/Y 5.07/Y 6./Y 7.03/27/2023Y 8./Y 9.04/02/2023Y10.07/2 03/20231155D03.04/07/2023 Y12.08/10/2022Y 13./11/2022Y14.08/ 03/2023Y15.08/ 3Y16.08/06/2023Y 17.08/Y18.08/ Y19.08/ 3Y20.08/Y 21.04/30/2023Y22.08/ Y23. 3Y24.05/07/2023Y 25.05/08/2023Y26.02/2023Y27. 3Y Scheduled:31 Attended:27 Compliance:87% [facility] SESSION NUMBER 27 [facility] SESSION THR 97 [facility] STATUS Cardiac Phase II [facility] MONITORED CARDIAC REHAB SESS IONon 05-14-2023 ANGINA N [facility] ENDING HR 88 [facility] EXT - ADMIT TO CR DATE 03/04/2023 [facility] Max HR 91 [facility] Max Mets 4 [facility] MODE Treadmill [facility] MOST RECENT SESSION 25 [facility] ealt RESTING HR 65 [facility] SESSION DATE 05/14/2023 [facility] SESSION [facility] SESSION LENGTH 0:59:16 [facility] SESSION LIST Session List: 03/05/2023N 03/06/2023N 03/10/2023N 03/12/2023N 1.07/02/2023Y 2.07Y 3.07/08/2023Y 4.07Y 5.07Y 6.07/Y 7.07Y 8.07/Y 9.07Y10.07/2 03/20239464J90.04/07/2023 Y12.08/10/2022Y 13.08/11/2022Y14.08/ 03/2023Y15.08/ 3Y16.08/06/2023Y 17./Y18.08/ Y19.08/ 3Y20.08/Y 21.08/Y22.08/ Y23. 3Y24.05/07/2023Y 25.05/08/2023Y26.02/2023Y Scheduled:30 Attended:26 Compliance:86% [facility] SESSION NUMBER 26 [facility] SESSION THR 95 [facility] STATUS Cardiac Phase II [facility] MONITORED CARDIAC REHAB CHRISTIAN Chavarria 05-08-2023 ANGINA N [facility] ENDING HR 80 [facility] EXT - ADMIT TO CR DATE 03/04/2023 [facility] Max HR 93 [facility] Max Mets 4 [facility] MODE Treadmill [facility] MOST RECENT SESSION 24 [facility] ealt RESTING HR 65 [facility] SESSION DATE 05/08/2023 [facility] SESSION DAYS [facility] SESSION LENGTH 0:56:48 [facility] SESSION LIST Session List: 03/05/2023N 03/06/2023N 03/10/2023N 03/12/2023N 1.07Y 2.07Y 3.07Y 4.07Y 5.07Y 6.07Y 7.07Y 8.07Y 9.07Y10.07/2 03/20238786A35.04/07/2023 Y12.08/10/2022Y 13.08/11/2022Y14.08/ 03/2023Y15.08/ 3Y16.08/06/2023Y 17.08/Y18.08/ Y19.08/ 3Y20.08/Y 21.08Y22.08/ Y23.08 3Y24.05/07/2023Y 25.05/08/2023Y Scheduled:29 Attended:25 Compliance:86% [facility] SESSION NUMBER 25 [facility] SESSION THR 97 [facility] STATUS Cardiac Phase II [facility] MONITORED CARDIAC REHAB CHRISTIAN Chavarria 05-07-2023 ANGINA N [facility] ENDING HR 80 [facility] EXT - ADMIT TO CR DATE 03/04/2023 [facility] Max HR 93 [facility] Max Mets 3.7 [facility] MODE Treadmill [facility] MOST RECENT SESSION [facility] ealt RESTING HR 66 [facility] SESSION DATE 05/07/2023 [facility] SESSION DAYS [facility] SESSION LENGTH 0:54:48 [facility] SESSION LIST Session List: 03/05/2023N 03/06/2023N 03/10/2023N 03/12/2023N 1.07Y 2.07Y 3.07Y 4.07Y 5.07Y 6.07Y 7.07Y 8.07Y 9.07Y10.07/2 03/20234699I24.04/07/2023 Y12.08/10/2022Y 13.08/11/2022Y14.08/ 03/2023Y15.08/ 3Y16.08/06/2023Y 17.08/Y18.08/ Y19.08/ 3Y20.08Y 21.08Y22.08/ Y23. 3Y24.05/07/2023Y Scheduled:28 Attended:24 Compliance:85% [facility] SESSION NUMBER 24 [facility] SESSION THR 96 [facility] STATUS Cardiac Phase II [facility] MONITORED CARDIAC REHAB CHRISTIAN Chavarria 05-05-2023 ANGINA N [facility] ENDING HR 74 [facility] EXT - ADMIT TO CR DATE 03/04/2023 [facility] Max HR 94 [facility] Max Mets 3.7 [facility] MODE Treadmill [facility] MOST RECENT SESSION 22 [facility] ealt RESTING HR 63 [facility] SESSION DATE 05/05/2023 [facility] SESSION DAYS [facility] SESSION LENGTH 0:54:40 [facility] SESSION LIST Session List: 03/05/2023N 03/06/2023N 03/10/2023N 03/12/2023N 1.07Y 2.07Y 3.03/19/2023Y 4.03/20/2023Y 5.03/24/2023Y 6.03/26/2023Y 7.03/27/2023Y 8.03/31/2023Y 9.04/02/2023Y10.07/2 03/20238350I39.04/07/2023 Y12.08/10/2022Y 13./11/2022Y14.08/ 03/2023Y15.08/ 3Y16.08/06/2023Y 17./Y18.08/ Y19.08 3Y20./Y 21.04/30/2023Y22.Y23. 3Y Scheduled:27 Attended:23 Compliance:85% [facility] SESSION NUMBER 23 [facility] SESSION THR 93 [facility] STATUS Cardiac Phase II [facility] MONITORED CARDIAC REHAB CHRISTIAN Chavarria 05-01-2023 ANGINA N [facility] ENDING HR 86 [facility] EXT - ADMIT TO CR DATE 03/04/2023 [facility] Max HR 98 [facility] Max Mets 3.7 [facility] MODE Treadmill [facility] MOST RECENT SESSION [facility] ealt RESTING HR 62 [facility] SESSION DATE 05/01/2023 [facility] SESSION [facility] SESSION LENGTH 0:55:40 [facility] SESSION LIST Session List: 03/05/2023N 03/06/2023N 03/10/2023N 03/12/2023N 1.07Y 2.03/17/2023Y 3.03/19/2023Y 4.03/20/2023Y 5.07Y 6.07Y 7.07Y 8.03/31/2023Y 9.04/02/2023Y10.07/2 03/20239119E17.04/07/2023 Y12.08/10/2022Y 13.08/11/2022Y14.08/ 03/2023Y15.08 3Y16.08/06/2023Y 17.08/Y18.08/ Y19.08 3Y20.08Y 21.04/30/2023Y22.Y Scheduled:26 Attended:22 Compliance:84% [facility] SESSION NUMBER 22 [facility] SESSION THR 92 [facility] STATUS Cardiac Phase II [facility] MONITORED CARDIAC REHAB SESS IONon 04-30-2023 ANGINA N [facility] ENDING HR 87 [facility] EXT - ADMIT TO CR DATE 03/04/2023 [facility] Max HR 90 [facility] Max Mets 3.2 [facility] MODE Treadmill [facility] MOST RECENT SESSION 20 [facility] ealt RESTING HR 63 [facility] SESSION DATE 04/30/2023 [facility] SESSION [facility] SESSION LENGTH 0:49:24 [facility] SESSION LIST Session List: 03/05/2023N 03/06/2023N 03/10/2023N 03/12/2023N 1.07Y 2.07Y 3.07Y 4.07Y 5.07Y 6.07Y 7.07Y 8.03/31/2023Y 9.07Y10.07/2 03/20233660M33.04/07/2023 Y12.08/10/2022Y 13.08/11/2022Y14.08/ 03/2023Y15.08/ 3Y16.08/06/2023Y 17.04/21/2023Y18.08Y19.08 3Y20.04/28/2023Y 21.04/30/2023Y Scheduled:25 Attended:21 Compliance:84% [facility] SESSION NUMBER 21 [facility] SESSION THR 93 [facility] STATUS Cardiac Phase II [facility] MONITORED CARDIAC REHAB SESS IONon 04-28-2023 ANGINA N [facility] ENDING HR 76 [facility] EXT - ADMIT TO CR DATE 03/04/2023 [facility] 107 [facility] Max Mets 3.2 [facility] MODE Treadmill [facility] MOST RECENT SESSION 19 [facility] ealth RESTING HR 66 [facility] SESSION DATE 04/28/2023 [facility] SESSION DAYS [facility] SESSION LENGTH 0:54:24 [facility] SESSION LIST Session List: 03/05/2023N 03/06/2023N 03/10/202303/12/2023N 1.07Y 2.07Y 3.03/19/2023Y 4.03/20/2023Y 5.03/24/2023Y 6.03/26/2023Y 7.03/27/2023Y 8.03/31/2023Y 9.04/02/2023Y10.07/03/2023Y11.04/07/2023 Y12.08/10/2022Y 13.08/11/2022Y14.08/ 03/2023Y15.08/ 3Y16.08/06/2023Y 17./Y18.08/ Y19. 3Y20.04/28/2023Y Scheduled:24 Attended:20 Compliance:83% [facility] SESSION NUMBER 20 [facility] SESSION THR 96 [facility] STATUS Cardiac Phase II [facility] MONITORED CARDIAC REHAB CHRISTIAN Chavarria 04-24-2023 ANGINA N [facility] ENDING HR 80 [facility] EXT - ADMIT TO CR DATE 03/04/2023 [facility] Max HR 89 [facility] Max Mets 3.2 [facility] MODE Treadmill [facility] MOST RECENT SESSION 18 [facility] ealth RESTING HR 76 [facility] SESSION DATE 04/24/2023 [facility] SESSION DAYS [facility] SESSION LENGTH 0:58:20 [facility] SESSION LIST Session List: 03/05/2023N 03/06/2023N 03/10/2023N 03/12/2023N 1.07Y 2.07Y 3.03/19/2023Y 4.03/20/2023Y 5.03/24/2023Y 6.07/Y 7.07/Y 8.07Y 9.07Y10.07/2 03/20233833A74.04/07/2023 Y12.08/10/2022Y 13.08/11/2022Y14.08/ 03/2023Y15.08 3Y16./06/2023Y 17.04/21/2023Y18.Y19. 3Y Scheduled:23 Attended:19 Compliance:82% [facility] SESSION NUMBER 19 [facility] SESSION THR 106 [facility] Cardiac Phase II [facility] MONITORED CARDIAC REHAB CHRISTIAN Chavarria 04-23-2023 ANGINA N [facility] ENDING HR 84 [facility] EXT - ADMIT TO CR DATE 03/04/2023 [facility] Max HR 86 [facility] Max Mets 3.2 [facility] MODE Treadmill [facility] MOST RECENT SESSION 17 [facility] ealt RESTING HR 60 [facility] SESSION DATE 04/23/2023 [facility] SESSION DAYS [facility] SESSION LENGTH 0:56:56 [facility] SESSION LIST Session List: 03/05/2023N 03/06/2023N 03/10/2023N 03/12/2023N 1.07Y 2.07Y 3.07Y 4.07Y 5.07Y 6.07Y 7.07Y 8.07Y 9.07Y10.07/2 03/20233321L99.04/07/2023 Y12.08/10/2022Y 13.08Y14.0803/2023Y15.08 3Y16.04/17/2023Y 17.04/21/2023Y18.Y Scheduled:22 Attended:18 Compliance:81% [facility] SESSION NUMBER 18 [facility] SESSION THR 90 [facility] STATUS Cardiac Phase II [facility] MONITORED CARDIAC REHAB CHRISTIAN Chavarria 04-21-2023 ANGINA N [facility] ENDING HR 71 [facility] EXT - ADMIT TO CR DATE 03/04/2023 [facility] 91 [facility] Max Mets 3.2 [facility] MODE Treadmill [facility] MOST RECENT SESSION 16 [facility] ealth RESTING HR 61 [facility] SESSION DATE 04/21/2023 [facility] SESSION DAYS [facility] SESSION LENGTH 0:45:52 [facility] SESSION LIST Session List: 03/05/2023N 03/06/2023N 03/10/2023N 03/12/2023N 1.07Y 2.07Y 3.03/19/2023Y 4.03/20/2023Y 5.03/24/2023Y 6.03/26/2023Y 7.03/27/2023Y 8.03/31/2023Y 9.04/02/2023Y10.07/2 03/20238474K87.04/07/2023 Y12.08Y 13.04/10/2023Y14.0803/2023Y15.Y16.04/17/2023Y 17.04/21/2023Y Scheduled:21 Attended:17 Compliance:80% [facility] SESSION NUMBER 17 [facility] SESSION THR 91 [facility] STATUS Cardiac Phase II [facility] MONITORED CARDIAC REHAB CHRISTIAN Chavarria 04-16-2023 ANGINA N [facility] ENDING HR 89 [facility] EXT - ADMIT TO CR DATE 03/04/2023 [facility] Max HR 95 [facility] Max Mets 3.2 [facility] MODE Treadmill [facility] MOST RECENT SESSION 14 [facility] ealth RESTING HR 69 [facility] SESSION DATE 04/16/2023 [facility] SESSION DAYS [facility] SESSION LENGTH 0:45:32 [facility] SESSION LIST Session List: 03/05/2023N 03/06/2023N 03/10/2023N 03/12/2023N 1.07Y 2.07Y 3.03/19/2023Y 4.07Y 5.03/24/2023Y 6.03/26/2023Y 7.07Y 8.03/31/2023Y 9.04/02/2023Y10.07/2 76255U96.04/07/2023 Y12.08Y 13.08Y14.03/2023Y15.Y Scheduled:19 Attended:15 Compliance:78% [facility] SESSION NUMBER 15 [facility] SESSION THR 99 [facility] STATUS Cardiac Phase II [facility] MONITORED CARDIAC REHAB SESS IONon 04-14-2023 [facility] HR 74 [facility] EXT - ADMIT TO CR DATE 03/04/2023 [facility] Max HR 89 [facility] Max Mets 3.2 [facility] MODE Treadmill [facility] MOST RECENT SESSION 13 [facility] ealth RESTING HR 67 [facility] SESSION DATE 04/14/2023 [facility] SESSION DAYS [facility] SESSION LENGTH 0:54:00 [facility] SESSION LIST Session List: 03/05/202303/06/2023N 03/10/2023N 03/12/2023N 1.07Y 2.07Y 3.07Y 4.07Y 5.07Y 6.07Y 7.07Y 8.07Y 9.07Y10.07/2 03/20233415L77.04/07/2023 Y12.08/10/2022Y 13.08Y14.03/2023Y Scheduled:18 Attended:14 Compliance:77% [facility] SESSION NUMBER 14 [facility] SESSION THR 97 [facility] STATUS Cardiac Phase II [facility] MONITORED CARDIAC REHAB SESS IONon 04-09-2023 ANGINA N [facility] ENDING HR 71 [facility] EXT - ADMIT TO CR DATE 03/04/2023 [facility] HR [facility] Max Mets 3 [facility] MODE Treadmill [facility] MOST RECENT SESSION 11 [facility] ealth RESTING HR 69 [facility] SESSION DATE 04/09/2023 [facility] SESSION DAYS [facility] SESSION LENGTH 0:54:48 [facility] SESSION LIST Session List: 03/05/2023N 03/06/2023N 03/10/2023N 03/12/2023N 1.07/02/2023Y 2.07/06/2023Y 3.07Y 4.07Y 5.03/24/2023Y 6.07Y 7.07Y 8.07Y 9.07Y10.07/2 03/20231701Q95.04/07/2023 Y12.04/09/2023Y Scheduled:16 Attended:12 Compliance:75% [facility] SESSION NUMBER 12 [facility] SESSION THR 99 [facility] STATUS Cardiac Phase II [facility] MONITORED CARDIAC REHAB SESS IONon 04-07-2023 ANGINA N [facility] ENDING HR 89 [facility] EXT - ADMIT TO CR DATE 03/04/2023 [facility] Max HR 89 [facility] Max Mets 3 [facility] MODE Treadmill [facility] MOST RECENT SESSION 10 [facility]alth RESTING HR 76 [facility] SESSION DATE 04/07/2023 [facility] SESSION DAYS [facility] SESSION LENGTH 0:58:24 [facility] SESSION LIST Session List: 03/05/2023N 03/06/2023N 03/10/2023N 03/12/2023N 1.07Y 2.07Y 3.03/19/2023Y 4.07Y 5.03/24/2023Y 6.07Y 7.07Y 8.03/31/2023Y 9.04/02/2023Y10.07/2 03/20237677O80.04/07/2023 Y Scheduled:15 Attended:11 Compliance:73% [facility] SESSION NUMBER 11 [facility] SESSION THR 106 [facility] STATUS Cardiac Phase II [facility] MONITORED CARDIAC REHAB SESS IONon 04-03-2023 ANGINA N [facility] ENDING HR 84 [facility] EXT - ADMIT TO CR DATE 03/04/2023 [facility] Max HR 86 [facility] Max Mets 3 [facility] MODE Treadmill [facility] MOST RECENT SESSION 9 [facility]alth RESTING HR 68 [facility] SESSION DATE 04/03/2023 [facility] SESSION DAYS [facility] SESSION LENGTH 1:01:28 [facility] SESSION LIST Session List: 03/05/2023N 03/06/2023N 03/10/2023N 03/12/2023N 1.07Y 2.03/17/2023Y 3.03/19/2023Y 4.03/20/2023Y 5.03/24/2023Y 6.03/26/2023Y 7.03/27/2023Y 8.03/31/2023Y 9.04/02/2023Y10.07/03/2023Y Scheduled:14 Attended:10 Compliance:71% [facility] SESSION NUMBER 10 [facility] SESSION THR 98 [facility] STATUS Cardiac Phase II [facility] MONITORED CARDIAC REHAB SESS IONon 03-27-2023 ANGINA N [facility] ENDING HR 76 [facility] EXT - ADMIT TO CR DATE 03/04/2023 [facility] Max HR 89 [facility] Max Mets 2.8 [facility] MODE Treadmill [facility] MOST RECENT SESSION 6 [facility] ealth RESTING HR 65 [facility] SESSION DATE 03/27/2023 [facility] SESSION DAYS [facility] SESSION LENGTH 0:52:52 [facility] SESSION LIST Session List: 03/05/2023N 03/06/2023N 03/10/202303/12/2023N 1.03/13/2023 2.03/17/2023 3.03/19/2023Y 4.03/20/2023Y 5.03/24/2023Y 6.03/26/2023Y 7.03/27/2023Y Scheduled:11 Attended:7 Compliance:63% [facility] SESSION NUMBER 7 [facility] SESSION THR 95 [facility] STATUS Cardiac Phase II [facility] MONITORED CARDIAC REHAB SESS IONon 03-26-2023 [facility] HR 62 [facility] EXT - ADMIT TO CR DATE 03/04/2023 [facility] Max HR 84 [facility] Max Mets 2.8 [facility] MODE Treadmill [facility] MOST RECENT SESSION 5 [facility] RESTING HR 64 [facility] SESSION DATE 03/26/2023 [facility] SESSION DAYS [facility] SESSION LENGTH 0:55:00 [facility] SESSION LIST Session List: 03/05/2023N 03/06/2023N 03/10/2023N 03/12/2023N 1.03/13/2023Y 2.03/17/2023Y 3.03/19/2023Y 4.03/20/2023Y 5.03/24/2023Y 6.03/26/2023Y Scheduled:10 Attended:6 Compliance:60% [facility] SESSION NUMBER 6 [facility] SESSION THR 94 [facility] STATUS Cardiac Phase II [facility] MONITORED CARDIAC REHAB SESS IONon 03-24-2023 ANGINA N [facility] ENDING HR 62 [facility] EXT - ADMIT TO CR DATE 03/04/2023 [facility] Max HR 108 [facility] Max Mets 2.8 [facility] MODE Treadmill [facility] MOST RECENT SESSION 4 [facility]alth RESTING HR 65 [facility] SESSION DATE 03/24/2023 [facility] SESSION DAYS [facility] SESSION LENGTH 1:02:44 [facility] SESSION LIST Session List: 03/05/2023N 03/06/2023N 03/10/2023N 03/12/2023N 1.03/13/2023 2.03/17/2023 3.03/19/2023 4.03/20/2023Y 5.03/24/2023 Scheduled:9 Attended:5 Compliance:55% [facility] SESSION NUMBER 5 [facility] SESSION THR 95 [facility] STATUS Cardiac Phase II [facility] MONITORED CARDIAC REHAB SESS IONon 03-19-2023 ANGINA N [facility] ENDING HR 67 [facility] EXT - ADMIT TO CR DATE 03/04/2023 [facility] Max HR 84 [facility] Max Mets 2.6 [facility] MODE Treadmill [facility] MOST RECENT SESSION 2 [facility]alth RESTING HR 65 [facility] SESSION DATE 03/19/2023 [facility] SESSION DAYS [facility] SESSION LENGTH 0:55:28 [facility] SESSION LIST Session List: 03/05/2023N 03/06/2023N 03/10/2023N 03/12/2023N 1.03/13/2023Y 2.03/17/2023Y 3.03/19/2023 Scheduled:7 Attended:3 Compliance:42% [facility] SESSION NUMBER 3 [facility] SESSION THR 95 [facility] STATUS Cardiac Phase II [facility] MONITORED CARDIAC REHAB SESS IONon 03-17-2023 ANGINA N [facility] ENDING HR 82 [facility] EXT - ADMIT TO CR DATE 03/04/2023 [facility] Max HR 84 [facility] Max Mets 2.6 [facility] MODE Treadmill [facility] MOST RECENT SESSION 1 [facility] ealt RESTING HR 65 [facility] SESSION DATE 03/17/2023 [facility] SESSION DAYS [facility] SESSION LENGTH 0:58:20 [facility] SESSION LIST Session List: 03/05/202303/06/202303/10/202303/12/2023 1.03/13/2023Y 2.03/17/2023 Scheduled:6 Attended:2 Compliance:33% [facility] SESSION NUMBER 2 [facility] SESSION THR 95 [facility] STATUS Cardiac Phase II [facility] MONITORED CARDIAC REHAB CHRISTIAN Chavarria 03-13-2023 ANGINA N [facility] ENDING HR 86 [facility] EXT - ADMIT TO CR DATE 03/04/2023 [facility] Max HR 88 [facility] Max Mets 2.6 [facility] MODE Treadmill [facility] RESTING HR 68 [facility] SESSION DATE 03/13/2023 [facility] SESSION DAYS [facility] SESSION LENGTH 0:54:16 [facility] SESSION LIST Session List: 03/05/202303/06/202303/10/202303/12/2023 1.03/13/2023 Scheduled:5 Attended:1 Compliance:20% [facility] SESSION NUMBER 1 [facility] SESSION THR 98 [facility] STATUS Cardiac Phase II [facility] Absolute lymphocyte countOrd ered By: Dr. Pierre on 02-11-2023 Lymphocytes Auto (Unsp spec) [#/Vol] 1.17 10*3/uL 0.83-4.51 [facility] Basophil percentageOrdered B y: Dr. Pierre on 02-11-2023 Basophils/100 WBC (Bld) 0.6 % 0-1 [facility] Chloride [Moles/Vol] 101 mmol/L 98-107 [facility] Eosinophils/100 WBC (Bld) 0.7 % 0-5 [facility] Glucose [Mass/Vol] 147 mg/dL 74-106 [facility] Comment on above: Fasting Glucose resu lt greater than or equal to 126 mg/dL suggests DIABETES MELLITUS per A.D.A. criteria. Neutrophils (Bld) [#/Vol] 8.4 10*3/uL 2.0-7.7 [facility] Neutrophils/100 WBC (Bld) 81.4 % 47-70 [facility] Potassium [Moles/Vol] 3.5 mmol/L 3.5-5.1 [facility] Sodium [Moles/Vol] 135 mmol/L 136-145 [facility] WBC (Bld) [#/Vol] 10.3 10*3/uL 4.4-11.0 [facility] Blood erythrocytes count (nu mber/volume)Ordered By: Dr. Pierre on 02-11-2023 RBC (Bld) [#/Vol] 4.31 10*6/uL 4.6-6.2 [facility] Blood hemoglobin measurement (mass/volume)Ordered By: Dr. Pierre on 02-11-2023 Hemoglobin (Bld) [Mass/Vol] 12.3 g/dL 13.0-16.5 [facility] Blood lymphocytes/100 leukoc ytesOrdered By: Dr. Pierre on 02-11-2023 Lymphocytes/100 WBC (Bld) 11.4 % 19-41 [facility] Blood monocytes/100 leukocyt esOrdered By: Dr. Pierre on 02-11-2023 Monocytes/100 WBC (Bld) 5.5 % 0-10 [facility] Blood platelet mean volumeOr dered By: Dr. Pierre on 02-11-2023 Platelet mean volume (Bld) [Entitic vol] 9.2 fL 6.2-12.0 [facility] Determination of erythrocyte mean corpuscular volume (MCV)Ordered By: Dr. Pierre on 02-11-2023 MCV (RBC) [Entitic vol] 87.0 fL 80-94 [facility] Hematocrit Auto (Bld) [Volum e fraction]Ordered By: Dr. Pierre on 02-11-2023 Hematocrit (Bld) [Volume fraction] 37.5 % 40-54 [facility] INR in Blood by Coagulation assayOrdered By: Dr. Pierre on 02-11-2023 INR Coag (Bld) [Relative time] 1.1 {INR} [facility] - Chemistry and C hemistry - challengeOrdered By: Dr. Pierre on 02-11-2023 CO2 [Moles/Vol] 27.0 mmol/L 21.0-32.0 [facility] Urea nitrogen/Creatinine [Mass ratio] 13.9 mg/mg 10-20 [facility] - CoagulationOrde red By: Dr. Pierre on 02-11-2023 aPTT Coag (Bld) [Time] 34.2 s 24.1-36.2 [facility] PT Coag (PPP) [Time] 13.9 s 11.7-14.9 [facility] - Hematology and Cell countsOrdered By: Dr. Pierre on 02-11-2023 Erythrocyte distribution width (RBC) [Entitic vol] 42.1 fL 35.1-43.9 [facility] Erythrocyte distribution width (RBC) [Ratio] 13.2 % 11.6-14.6 [facility] Immature granulocytes/100 WBC (Bld) 0.400 % 0.0-0.9 [facility] Comment on above: IG% - Immature Granu locytes (promyelocytes, myelocytes and metamyelocytes) > 1% indicates that a LEFT SHIFT is Present. MCH (RBC) [Entitic mass] 28.5 pg 27.0-32.0 [facility] Nucleated RBC/100 WBC (Bld) [Ratio] 0 % 0-5 [facility] MCHC Auto (RBC) [Mass/Vol]Or dered By: Dr. Pierre on 02-11-2023 MCHC (RBC) [Mass/Vol] 32.8 g/dL 32-36 [facility] No Panel InformationOrdered By: Dr. Pierre on 02-11-2023 Estimated Creatinine Clearance Calc 51.92 ml/min [facility] Estimated GFR (MDRD) Amer 65 mL/min >60 [facility] Comment on above: GFR Calc Estimated GFR (MDRD) Non-Af Amer 54 mL/min >60 [facility] Comment on above: Non- GFR Calc Troponin I High Sensitivity 3241 pg/mL 3.0-78.0 [facility] Comment on above: Critical Result(s) Marty Waddell at: 11:18:10 02/11/2023 by: [email or web address]. Results read back by same. Please Note: New Test Units and Gender Specific Reference Ranges. For more information see Policy Stat Procedure [place] High Sensitivity Troponin (TNIH) and attachments. Platelets bldOrdered By: Dr. Pierre on 02-11-2023 Platelets (Bld) [#/Vol] 556 10*3/uL 150-450 [facility] Serum or plasma calcium yamilet urement (mass/volume)Ordered By: Dr. Pierre on 02-11-2023 Calcium [Mass/Vol] 9.5 mg/dL 8.5-10.1 [facility] Serum or plasma creatinine m easurement (mass/volume)Ordered By: Dr. Pierre on 02-11-2023 Creatinine [Mass/Vol] 1.37 mg/dL 0.70-1.30 [facility] Comment on above: The validity of the calculated GFR & GFRAA in patients over 70 years has not been determined. Clinical correlation is essential. Serum or plasma urea nitroge n measurement (mass/volume)Ordered By: Dr. Pierre on 02-11-2023 Urea nitrogen [Mass/Vol] 19 mg/dL 7-18 [facility] Thin prep Papanicolaou smear with manual screeningOrdered By: Dr. Pierre on 02-11-2023 Thin prep Papanicolaou smear with manual screening 7 5-15 [facility] XR KNEE LEFT 4+ VIEWS (SPECI [...] FriJanuary 29, 2023 3:53:[address] [facility] Comment on above: Order Comment: [...] 185.[address] Heriberto Gerber Work Phone: [facility] 06-09-2023 14:19-0400 Body mass index (BMI) [Ratio] 26.9 kg/m2 Dr. Heriberto Gerber Work Phone: [facility] 06-09-2023 14:19-0400 Body weight 92.[address] Heriberto Gerber Work Phone: [facility] 06-09-2023 14:19-0400 Diastolic blood pressure 87 mm[Hg] Dr. Heriberto Gerber Work Phone: [facility] 06-09-2023 14:19-0400 Heart rate 65 /min Dr. Heriberto Gerber Work Phone: [facility] 06-09-2023 14:19-0400 Respiratory rate 16 /min Dr. Heriberto Gerber Work Phone: [facility] 06-09-2023 14:19-0400 Systolic blood pressure 169 mm[Hg] Dr. Heriberto Gerber Work Phone: [facility] 02-11-2023 12:28-0400 Body temperature 98.1 [degF] [facility] 02-11-2023 12:28-0400 Diastolic blood pressure 84 mm[Hg] [facility] 02-11-2023 12:28-0400 Heart rate 109 /min [facility] 02-11-2023 12:28-0400 Respiratory rate 18 /min [facility] 02-11-2023 12:280400 SaO2% (BldA) [Mass fraction] 94 % [facility] 02-11-2023 12:28040 Systolic blood pressure 161 mm[Hg] [facility] 02-11-2023 10:13040 Body height 182.88 cm [facility] 02-11-2023 10:040 Body mass index (BMI) [Ratio] 28.5 kg/m2 [facility] 02-11-2023 10: Body weight 95.39 kg [facility] Encounters Encounter Date Encounter Type Care Provider Facility Start: 07-06-2025 Encounter for genera l adult medical examination without abnormal findings Heriberto Gerber [facility] Start: 06-15-2025 End: 06-15-2025 ambulatory Heriberto Gerber Facility:[facility] Start: 04-01-2025 End: 04-01-[address] Heriberto Gerber MD Work Phone: [facility] Start: 04-01-2025 End: 04-01-[address] Eliezer Canada MD [facility] Work Phone: Start: 04-01-2025 End: 04-01-2025 ambulatory Heriberto Gerber Facility:[facility] Start: 10-20-2024 End: 10-20-2024 ambulatory Heriberto Gerber Facility:[facility] Start: 2024 End: 2024 ambulatory Heriberto Gerber Facility:[facility] Start: 09-30-2024 ambulatory Heriberto Gerber Facility:[facility] Start: 09-16-2024 ambulatory Heriberto Gerber [facility] Start: 09-16-2024 End: 09-16-2024 ambulatory Heriberto Gerber Facility:[facility] Start: 08-27-2024 End: 08-27-2024 ambulatory Xavier Euceda Facility:[facility] Start: 08-27-2024 End: 08-27-2024 ambulatory Tania Spence Facility:[facility] Start: 07-23-2024 End: 07-23-2024 ambulatory Xavier Euceda Facility:[facility] Start: 07-23-2024 End: 07-23-2024 ambulatory Ramon Verdugo NP Facility:[facility] Start: 11-19-2023 End: 11-19-2023 ambulatory [facility] Work Phone: Start: 11-19-2023 End: 11-19-2023 Patient encounter procedure [facility] Work Phone: Start: 08-13-2023 End: 08-13-[address] Heriberto Gerber Work Phone: [facility] Work Phone: Start: 08-13-2023 End: 08-13-[address] Heriberto Gerber Work Phone: [facility] Work Phone: Start: 07-18-2023 ambulatory VERONA BEVERLY [facility] Amb[facility] Start: 06-17-2023 ambulatory VERONA BEVERLY [facility] Start: 06-12-2023 End: 06-16-2023 ambulatory Verona Beverly MD Work Phone: [facility] Comment on above: S/P PTCA (percutaneo us transluminal coronary angioplasty) (Primary Dx) Start: 06-11-2023 End: 06-15-2023 ambulatory Verona Beverly MD Work Phone: [facility] Comment on above: S/P PTCA (percutaneo us transluminal coronary angioplasty) (Primary Dx) Start: 06-09-2023 End: 06-09-[address] Heriberto Gerber Work Phone: [facility] Work Phone: Start: 06-04-2023 End: 06-04-2023 ambulatory Verona Beverly MD Work Phone: [facility] Comment on above: Arrived Canceled (Patient/Ca ncelled) Start: 06-02-2023 End: 06-06-2023 ambulatory Verona Beverly MD Work Phone: [facility] Comment on above: S/P PTCA (percutaneo us transluminal coronary angioplasty) (Primary Dx) Start: 05-29-2023 End: 06-02-2023 ambulatory Verona Beverly MD Work Phone: [facility] Comment on above: S/P PTCA (percutaneo us transluminal coronary angioplasty) (Primary Dx) Start: 05-28-2023 End: 06-01-2023 ambulatory Verona Beevrly MD Work Phone: [facility] Comment on above: S/P PTCA (percutaneo us transluminal coronary angioplasty) (Primary Dx) Start: 05-26-2023 End: 05-30-2023 ambulatory Verona Beverly MD Work Phone: [facility] Comment on above: S/P PTCA (percutaneo us transluminal coronary angioplasty) (Primary Dx) Start: 05-22-2023 End: 05-26-2023 ambulatory Verona Beverly MD Work Phone: [facility] Comment on above: S/P PTCA (percutaneo us transluminal coronary angioplasty) (Primary Dx) Start: 05-21-2023 End: 05-25-2023 ambulatory Verona Beverly MD Work Phone: [facility] Comment on above: S/P PTCA (percutaneo us transluminal coronary angioplasty) (Primary Dx) Start: 05-19-2023 End: 05-23-2023 ambulatory PHYSICIAN [facility] Start: 05-15-2023 End: 05-19-2023 ambulatory Verona Beverly MD Work Phone: [facility] Comment on above: S/P PTCA (percutaneo us transluminal coronary angioplasty) (Primary Dx) Start: 05-14-2023 End: 05-18-2023 ambulatory Verona Beverly MD Work Phone: [facility] Comment on above: S/P PTCA (percutaneo us transluminal coronary angioplasty) (Primary Dx) Start: 05-08-2023 End: 05-12-2023 ambulatory Verona Beveryl MD Work Phone: [facility] Comment on above: S/P PTCA (percutaneo us transluminal coronary angioplasty) (Primary Dx) Start: 05-07-2023 End: 05-11-2023 ambulatory Verona Beverly MD Work Phone: [facility] Comment on above: S/P PTCA (percutaneo us transluminal coronary angioplasty) (Primary Dx) Start: 05-05-2023 End: 05-09-2023 ambulatory Verona Beverly MD Work Phone: [facility] Comment on above: S/P PTCA (percutaneo us transluminal coronary angioplasty) (Primary Dx) Start: 05-01-2023 End: 05-05-2023 ambulatory Verona Beverly MD Work Phone: [facility] Comment on above: S/P PTCA (percutaneo us transluminal coronary angioplasty) (Primary Dx) Start: 04-30-2023 End: 05-04-2023 ambulatory Verona Beverly MD Work Phone: [facility] Comment on above: S/P PTCA (percutaneo us transluminal coronary angioplasty) (Primary Dx) Start: 04-28-2023 End: 05-02-2023 ambulatory Verona Beverly MD Work Phone: [facility] Comment on above: S/P PTCA (percutaneo us transluminal coronary angioplasty) (Primary Dx) Start: 04-24-2023 End: 04-28-2023 ambulatory Verona Beverly MD Work Phone: [facility] Comment on above: S/P PTCA (percutaneo us transluminal coronary angioplasty) (Primary Dx) Start: 04-23-2023 End: 04-27-2023 ambulatory Verona Beverly MD Work Phone: [facility] Comment on above: S/P PTCA (percutaneo us transluminal coronary angioplasty) (Primary Dx) Start: 04-21-2023 End: 04-25-2023 ambulatory Verona Beverly MD Work Phone: [facility] Comment on above: S/P PTCA (percutaneo us transluminal coronary angioplasty) (Primary Dx) Start: 04-17-2023 End: 04-21-2023 ambulatory Verona Beverly MD Work Phone: [facility] Comment on above: S/P PTCA (percutaneo us transluminal coronary angioplasty) (Primary Dx) Start: 04-16-2023 End: 04-20-2023 ambulatory Verona Beverly MD Work Phone: [facility] Comment on above: S/P PTCA (percutaneo us transluminal coronary angioplasty) (Primary Dx) Start: 04-14-2023 End: 04-18-2023 ambulatory Verona Beverly MD Work Phone: [facility] Comment on above: S/P PTCA (percutaneo us transluminal coronary angioplasty) (Primary Dx) Start: 04-10-2023 End: 04-14-2023 ambulatory PHYSICIAN [facility] Start: 04-09-2023 End: 04-13-2023 ambulatory Verona Beverly MD Work Phone: [facility] Comment on above: S/P PTCA (percutaneo us transluminal coronary angioplasty) (Primary Dx) Start: 04-07-2023 End: 04-11-2023 ambulatory Verona Beverly MD Work Phone: [facility] Comment on above: S/P PTCA (percutaneo us transluminal coronary angioplasty) (Primary Dx) Start: 04-03-2023 End: 04-07-2023 ambulatory Verona Beverly MD Work Phone: [facility] Comment on above: S/P PTCA (percutaneo us transluminal coronary angioplasty) (Primary Dx) Start: 04-02-2023 End: 04-06-2023 [facility] Start: 03-31-2023 End: 04-04-2023 [facility] Start: 03-27-2023 End: 03-31-2023 ambulatory Verona Beverly MD Work Phone: [facility] Comment on above: S/P PTCA (percutaneo us transluminal coronary angioplasty) (Primary Dx) Start: 03-26-2023 End: 03-30-2023 ambulatory Verona Beverly MD Work Phone: [facility] Comment on above: S/P PTCA (percutaneo us transluminal coronary angioplasty) (Primary Dx) Start: 03-24-2023 End: 03-28-2023 ambulatory Verona Beverly MD Work Phone: [facility] Comment on above: S/P PTCA (percutaneo us transluminal coronary angioplasty) (Primary Dx) Start: 03-20-2023 End: 03-24-2023 [facility] Start: 03-19-2023 End: 03-23-2023 ambulatory Verona Beverly MD Work Phone: [facility] Comment on above: S/P PTCA (percutaneo us transluminal coronary angioplasty) (Primary Dx) Start: 03-17-2023 End: 03-21-2023 ambulatory Verona Beverly MD Work Phone: [facility] Comment on above: S/P PTCA (percutaneo us transluminal coronary angioplasty) (Primary Dx) Start: 03-13-2023 End: 03-17-2023 ambulatory Verona Beverly MD Work Phone: [facility] Comment on above: S/P PTCA (percutaneo us transluminal coronary angioplasty) (Primary Dx) Start: 03-04-2023 End: 03-08-[address] [facility] Start: 02-11-2023 Evaluation and management of inpatient [facility] Start: 01-29-2023 End: 01-29-[address] [facility] Start: 03-08-2019 End: 03-12-2019 Patient encounter procedure CHADD TIFFANIE COREY [facility] Procedures Date Procedure Procedure Detail Performing Clinician Start: 06-12-2023 MONITORED CARDIAC RE HAB SESSION Jayne Alford PT Start: 06-02-2023 MONITORED CARDIAC RE HAB SESSION Jayne Alford PT Start: 05-29-2023 MONITORED CARDIAC RE HAB SESSION Brittny Nicholson RN Start: 05-28-2023 MONITORED CARDIAC RE HAB SESSION Anita Duarte Start: 05-26-2023 MONITORED CARDIAC RE HAB SESSION Jayne Thapa Antijasen PT Start: 05-21-2023 MONITORED CARDIAC RE HAB SESSION Jayne Alford PT Start: 05-15-2023 MONITORED CARDIAC RE HAB SESSION Jayne Thapa Antijasen PT Start: 05-14-2023 MONITORED CARDIAC RE HAB SESSION Jayne Thapa Antijasen PT Start: 05-08-2023 MONITORED CARDIAC RE HAB SESSION Jayne Thapa Antijasen PT Start: 05-07-2023 MONITORED CARDIAC RE HAB SESSION Jayne Thapa Antijasen PT Start: 05-05-2023 MONITORED CARDIAC RE HAB SESSION Jayne Thapa Antijasen PT Start: 05-01-2023 MONITORED CARDIAC RE HAB SESSION Jayne Thapa Antijasen PT Start: 04-30-2023 MONITORED CARDIAC RE HAB SESSION Jayne Thapa Antijasen PT Start: 04-28-2023 MONITORED CARDIAC RE HAB SESSION Jayne Thapa Antijasen PT Start: 04-24-2023 MONITORED CARDIAC RE HAB SESSION Jayne Thapa Antijasen PT Start: 04-23-2023 MONITORED CARDIAC RE HAB [...] 04-03-2023 MONITORED CARDIAC RE HAB SESSION Jayne Thapa Antill PT Start: 03-27-2023 MONITORED CARDIAC RE HAB SESSION Brittny Nicholson RN Start: 03-26-2023 MONITORED CARDIAC RE HAB SESSION Brittny Nicholson RN Start: 03-24-2023 MONITORED CARDIAC RE HAB SESSION Brittny Nicholson RN Start: 03-19-2023 MONITORED CARDIAC RE HAB SESSION Brittny Nicholson RN Start: 03-17-2023 MONITORED CARDIAC RE HAB SESSION Jayne Thapa Antijasen PT Start: 03-13-2023 MONITORED CARDIAC RE HAB SESSION Jayne Thapa Antijasen PT Start: 02-11-2023 Plain chest X-ray Plan of Treatment Date Care Activity Detail Author Start: 06-12-2023 End: 06-12-2023 ambulatory 06/12/2023 8:[address] [facility] [address] [place] [phone] Verona Beverly MD [address] [place] [address] Discharge Disposition: Home [facility] Start: 06-09-2023 End: 06-09-2023 ambulatory 06/09/2023 8:[address] [facility] [address] [place] [phone] Verona Beverly MD [address] [place] [address] Discharge Disposition: Home [facility] Start: 06-05-2023 End: 06-05-2023 ambulatory 06/05/2023 8:[address] [facility] [address] [place], [place] [address] [address] Verona Beverly MD [address] [place] [phone] [facility] Start: 06-04-2023 End: 06-04-2023 ambulatory 06/04/2023 8:00 AM EDT Treatment [facility] [address] [place] [phone] Verona Beverly MD [address] [place] [phone] [facility] Start: 06-02-2023 End: 06-02-2023 ambulatory 06/02/2023 8:00 AM EDT Treatment [facility] [address] [place] [phone] Verona Beverly MD [address] [place] [phone] [facility] Start: 05-29-2023 End: 05-29-2023 ambulatory 05/29/2023 8:[address] [facility] [address] [place] [phone] Verona Beverly MD [address] [place] [id number] [facility] Start: 05-28-2023 End: 05-28-2023 ambulatory 05/28/2023 8:[address] [facility] [address] [place] [phone] Verona Beverly MD [address] [place] [address] [facility] Start: 05-26-2023 End: 05-26-2023 ambulatory 05/26/2023 8:[address] [facility] [address] [place] [phone] Verona Beverly MD [address] [place] [phone] [facility] Start: 05-22-2023 End: 05-22-2023 ambulatory 05/22/2023 8:[address] [facility] [address] [place] [phone] Verona Beverly MD [address] [place] [phone] [facility] Start: 05-21-2023 End: 05-21-2023 ambulatory 05/21/2023 8:[address] [facility] [address] [place] [phone] Verona Beverly MD [address] [place] [phone] [facility] Start: 05-19-2023 End: 05-19-2023 ambulatory 05/19/2023 8:00 AM EDT Treatment [facility] [address] [place] [phone] Verona Beverly MD [address] [place] [address] [facility] Start: 05-15-2023 End: 05-15-2023 ambulatory 05/15/2023 8:[address] [facility] [address] [place] [phone] Verona Beverly MD [address] [place] [phone] [facility] Start: 05-14-2023 End: 05-14-2023 ambulatory 05/14/2023 8:[address] [facility] [address] [place] [phone] Verona Beverly MD [address] [place] [phone] [facility] Start: 05-09-2023 Influenza vaccination Sequential Influenza Vaccine (#1) [facility] Start: 05-08-2023 End: 05-08-2023 ambulatory 05/08/2023 8:[address] [facility] [address] [place] [phone] Verona Beverly MD [address] [place] [phone] [facility] Start: 05-07-2023 End: 05-07-2023 ambulatory 05/07/2023 8:[address] [facility] [address] [place] [phone] Verona Beverly MD [address] [place] [phone] [facility] Start: 05-05-2023 End: 05-05-2023 ambulatory 05/05/2023 8:[address] [facility] [address] [place] [phone] Verona Beverly MD [address] [place] [address] [facility] Start: 05-01-2023 End: 05-01-2023 ambulatory 05/01/2023 8:[address] [facility] [address] [place] [phone] Verona Beverly MD [address] [place] [phone] [facility] Start: 04-30-2023 End: 04-30-2023 ambulatory 04/30/2023 8:[address] [facility] [address] [place] [phone] Verona Beverly MD [address] [place] [phone] [facility] Start: 04-28-2023 End: 04-28-2023 ambulatory 04/28/2023 8:[address] [facility] [address] [place] [phone] Verona Beverly MD [address] [place] [phone] [facility] Start: 04-24-2023 End: 04-24-2023 ambulatory 04/24/2023 8:00 AM EDT Treatment [facility] [address] [place] [phone] Verona Beverly MD [address] [place] [address] [facility] Start: 04-23-2023 End: 04-23-2023 ambulatory 04/23/2023 8:[address] [facility] [address] [place], [place] [address] [phone] Verona Beverly MD [address] [place] [phone] [facility] Start: 04-21-2023 End: 04-21-2023 ambulatory 04/21/2023 8:[address] [facility] [address] [place] [phone] Verona Beverly MD [address] [place] [phone] [facility] Start: 04-17-2023 End: 04-17-2023 ambulatory 04/17/2023 8:[address] [facility] [address] [place] [phone] Verona Beverly MD [address] [place] [phone] [facility] Start: 04-16-2023 End: 04-16-2023 ambulatory 04/16/2023 8:[address] [facility] [address] [place] [phone] Verona Beverly MD [address] [place] [phone] [facility] Start: 04-14-2023 End: 04-14-2023 ambulatory 04/14/2023 8:[address] [facility] [address] [place] [phone] Verona Beverly MD [address] [place] [address] [facility] Start: 04-10-2023 End: 04-10-2023 ambulatory 04/10/2023 8:[address] [facility] [address] [place] [phone] Verona Beverly MD [address] [place] [phone] [facility] Start: 04-09-2023 End: 04-09-2023 ambulatory 04/09/2023 8:[address] [facility] [address] [place] [phone] Verona Beverly MD [address] [place] [phone] [facility] Start: 04-07-2023 End: 04-07-2023 ambulatory 04/07/2023 8:[address] [facility] [address] [place] [phone] Verona Beverly MD [address] [place] [phone] [facility] Start: 04-03-2023 End: 04-03-2023 ambulatory 04/03/2023 8:[address] [facility] [address] [place] [phone] Verona Beverly MD [address] [place] [phone] [facility] Start: 04-02-2023 End: 04-02-2023 ambulatory 04/02/2023 8:[address] [facility] [address] [place] [phone] Verona Beverly MD [address] [place] [phone] [facility] Start: 03-31-2023 End: 03-31-2023 ambulatory 03/31/2023 8:[address] [facility] [address] [place] [phone] Verona Beverly MD [address] [place] [phone] [facility] Start: 03-27-2023 End: 03-27-2023 ambulatory 03/27/2023 8:[address] [facility] [address] [place] [phone] Verona Beverly MD [address] [place] [phone] [facility] Start: 03-26-2023 End: 03-26-2023 ambulatory 03/26/2023 8:[address] [facility] [address] [place] [phone] Verona Beverly MD [address] [place] [phone] [facility] Start: 03-24-2023 End: 03-24-2023 ambulatory 03/24/2023 8:[address] [facility] [address] [place] [phone] Verona Beverly MD [address] [place] [phone] [facility] Start: 03-20-2023 End: 03-20-2023 ambulatory 03/20/2023 8:[address] [facility] [address] [place] [phone] Verona Beverly MD [address] [place] [address] [facility] Start: 03-19-2023 End: 03-19-2023 ambulatory 03/19/2023 8:[address] [facility] [address] [place] [phone] Verona Beverly MD [address] [place] [phone] [facility] Start: 02-11-2023 Verification routine [facility] Start: 02-11-2023 Admission procedure [facility] Start: 2013 Fall risk assessment Falls Risk Assessment [facility] Start: 1998 Administration of herpes zoster vaccine Zoster Vaccines (1 of 2) [facility] Start: 1998 Screening for malignant neoplasm of colon Flexible sigmoidoscopy [facility] Start: 1966 Hepatitis C screening Hepatitis C Screening [facility] Start: 1960 Depression screening using PHQ-9 (Patient Health Questionnaire 9) score Depression Screening (PHQ-2/9) [facility] Start: 1954 Pneumococcal Vaccine: Age 65+ (1 - PCV) Pneumococcal Vaccine: Age 65+ (1 - PCV) [facility] Start: 1951 History and physical examination, annual for health maintenance Wellness Visit [facility] Start: [birth year]-14-1951 COVID-19 Vaccine (#1) COVID-19 Vaccine (#1) [facility] Start: 1948 Prostate specific antigen measurement PSA Level [facility] Start: 1948 Screening for malignant neoplasm of colon [facility] Start: 1948 Tetanus vaccination Tetanus: Every 10yrs [facility] Patient referral [facility] Work Phone: Payers Date Payer Category Payer Self-pay [id number] 2017 Private Health Insurance [id number] 2013 Medicare [id number] 2013 Medicare MEDICARE MEDICAR E PART A & B [id number] 2013-Present [phone] [facility] [id number] [place] [address] 1.2.840.101196.1.13.385. 2.7.3.893058.315 1948 Unknown [id number] 2.0.1.909304.3.579. 2.900 1948 Unknown [id number] 2.160.1.037279.3.579. 2.903 1948 Unknown [id number] 2.16840.1.074696.3.579. 2.90 1948 Unknown [id number] 2.840.1.436770.3.579. 2.903 1948 Unknown [id number] 2.0.1.861161.3.579. 2.903 1948 Unknown [id number] 2.16840.1.390680.3.579. 2.903 1948 Unknown [id number] 2.16.840.1.772806.3.579. 2.903 1948 Unknown [id number] 2.16840.1.281921.3.579. 2.903 1948 Unknown [id number] 2.16840.1.327834.3.579. 2.90 1948 Unknown [id number] 2.16.840.1.188184.3.579. 2.3 1948 Unknown [id number] 2.16.840.1.433477.3.579. 2. 1948 Unknown [id number] 2.16.840.1.559673.3.579. 2. 1948 Unknown [id number] 2.16.840.1.015512.3.579. 2. 1948 Unknown [id number] 2.16.840.1.418603.3.579. 2. 1948 Unknown [id number] 2.840.1.675319.3.579. 2 1948 Unknown [id number] 2.840.1.917770.3.579. 2 1948 Unknown [id number] 2.16840.1.456400.3.579. 2 1948 Unknown [id number] 2.840.1.706821.3.579. 2 1948 Unknown [id number] 2.16840.1.456476.3.579. 2 1948 Unknown [id number] 2.16840.1.984208.3.579. 2 1948 Unknown [id number] 2.16840.1.368818.3.579. 2 1948 Unknown [id number] 2.16840.1.158191.3.579. 2 1948 Unknown [id number] 2.16.840.1.651731.3.579. 2 1948 Unknown [id number] 2.16840.1.038254.3.579. 2 1948 Unknown [id number] 2.16.840.1.752482.3.579. 2. 1948 Unknown [id number] 2.16840.1.221071.3.579. 2. 1948 Unknown [id number] 2.16.840.1.263305.3.579. 2. 1948 Unknown [id number] 2.16840.1.446043.3.579. 2. 1948 Unknown [id number] 2.16840.1.879255.3.579. 2. 1948 Unknown [id number] 2.0.1.605961.3.579. 2 1948 Unknown [id number] 2.840.1.757757.3.579. 2 1948 Unknown [id number] 2.0.1.974486.3.579. 2 1948 Unknown [id number] 2.840.1.826124.3.579. 2. 1948 Unknown [id number] 2.0.1.279428.3.579. 2 1948 Unknown [id number] 2.840.1.770428.3.579. 2. 1948 Unknown [id number] 2.840.1.597632.3.579. 2. 1948 Unknown [id number] 2.840.1.042962.3.579. 2. 1948 Unknown [id number] 2.840.1.070700.3.579. 2 1948 Unknown [id number] 2.840.1.160779.3.579. 2. 1948 Unknown [id number] 2.16840.1.957351.3.579. 2.903 1948 Unknown [id number] 2.16.840.1.808871.3.579. 2.903 1948 Unknown [id number] 2.16.840.1.910369.3.579. 2.903 1948 Unknown [id number] 2.16.840.1.083156.3.579. 2.903 1948 Unknown [id number] 2.16.840.1.471852.3.579. 2.903 1948 Unknown [id number] 2.16.840.1.222952.3.579. 2.903 Private Health Insurance [id number] Private Health Insurance JORGE MENDOZA OTHER AFTER MEDICARE [id number] Effective for all dates [phone] [address] [address] [place] [address] 1.2.840.210793.1.13.385. 2.7.3.686977.315 Unknown [id number] 2.840.1.276658.3.579. 2.462 Unknown [id number] 2.840.1.532036.3.579. 2.462 Unknown [id number] 2.840.1.036836.3.579. 2.462 Unknown [id number] 2.840.1.787409.3.579. 2.462 Unknown [id number] 2.16840.1.378401.3.579. 2.462 Unknown [id number] 2.16840.1.039632.3.579. 2.462 Unknown [id number] 2.16840.1.176673.3.579. 2.462 Unknown [id number] 2.16.840.1.931974.3.579. 2.462 Unknown [id number] 2.16840.1.252378.3.579. 2.462 Unknown [id number] 2.16840.1.006239.3.579. 2.462 Unknown [id number] 2.16.840.1.158327.3.579. 2.462 Social History Date Type Detail Facility Start: 02-11-2023 End: 06-09-2023 Tobacco smoking status NHIS Unknown if ever smoked [facility] Start: 1950 Sex Assigned At Male [facility] Start: 01-29-2023 Tobacco smoking status NHIS Never smoked tobacco [facility] Start: 01-29-2023 Tobacco use and exposure Smokeless tobacco non-user [facility] Start: 03-04-2023 End: 06-04-2023 History of Social function [facility] Start: 03-04-2023 End: 06-04-2023 Tobacco use panel [facility] Start: 1950 Sex Assigned At Not on file [facility] Start: 06-09-2023 Tobacco smoking status NHIS Ex-smoker (finding) [facility] NEGATED: Highlighted rowStart: NINF History of tobacco use Passive smoker [facility] Medical Equipment Procedure Code Equipment Code Equipment Origin al Text Equipment Identifier Dates Drug-eluting coronary artery stent, [id number] lymer-coated [id number] FDA Start: 02-12-2023 Mental Status Date Assessment Result Facility 02-11-2023 Cognitive function Level Of Cons ciousness Awake;Alert;Appropriate [facility] Work Phone: Clinical Notes 03-13-2023 to 06-12-2023 Jayne Alford, PT - 06/12/2023 7:48 AM Jayne Goldman, PT - 06/11/2023 7:41 AM Jayne Goldman, PT - 06/02/2023 7:54 AM EDT Note Date & Type Note Facility 06-12-2023 History of Presen t illness Narrative Cardiac Rehab Session. Ref to daily session report in Procedures. Supervising Physician: Dr. White documented in this encounter [facility] 06-11-2023 History of Presen t illness Narrative Cardiac Rehab Session. Ref to daily session report in Procedures. Supervising Physician: Dr. Silverman documented in this encounter [facility] 06-02-2023 History of Presen t illness Narrative Cardiac Rehab Session. Ref to daily session report in Procedures. Supervising Physician: Dr. Beverly documented in this encounter [facility] 05-29-2023 History of Presen t illness Narrative Cardiac Rehab session. Refer to daily session report in procedures. Supervising Physician: Dr. White documented in this encounter [facility] 05-28-2023 History of Presen t illness Narrative Cardiac Rehab session. Refer to daily session report in procedures. Supervising Physician: Dr. Beverly documented in this encounter [facility] 05-26-2023 History of Presen t illness Narrative Cardiac Rehab Session. Ref to daily session report in Procedures. Supervising Physician: Dr. Beverly documented in this encounter [facility] 05-22-2023 History of Presen t illness Narrative Cardiac Rehab Session. Ref to daily session report in Procedures. Supervising Physician: Dr. Beverly documented in this encounter [facility] 05-21-2023 History of Presen t illness Narrative Cardiac Rehab Session. Ref to daily session report in Procedures. Supervising Physician: Dr. Silverman documented in this encounter [facility] 05-15-2023 History of Presen t illness Narrative Cardiac Rehab Session. Ref to daily session report in Procedures. Supervising Physician: Dr. Beverly documented in this encounter [facility] 05-14-2023 History of Presen t illness Narrative Cardiac Rehab Session. Ref to daily session report in Procedures. Supervising Physician: Dr. Silverman documented in this encounter [facility] 05-08-2023 History of Presen t illness Narrative Cardiac Rehab Session. Ref to daily session report in Procedures. Supervising Physician: Dr. Beverly documented in this encounter [facility] 05-07-2023 History of Presen t illness Narrative Cardiac Rehab Session. Ref to daily session report in Procedures. Supervising Physician: Dr. Beverly documented in this encounter [facility] 05-05-2023 History of Presen t illness Narrative Cardiac Rehab Session. Ref to daily session report in Procedures. Supervising Physician: Dr. Beverly documented in this encounter [facility] 05-01-2023 History of Presen t illness Narrative Cardiac Rehab Session. Ref to daily session report in Procedures. Supervising Physician: Dr. Beverly documented in this encounter [facility] 04-30-2023 History of Presen t illness Narrative Cardiac Rehab Session. Ref to daily session report in Procedures. Supervising Physician: Dr. Silverman documented in this encounter [facility] 04-28-2023 History of Presen t illness Narrative Cardiac Rehab Session. Ref to daily session report in Procedures. Supervising Physician: Dr. Beverly documented in this encounter [facility] 04-24-2023 History of Presen t illness Narrative Cardiac Rehab Session. Ref to daily session report in Procedures. Supervising Physician: Dr. Bethea documented in this encounter [facility] 04-23-2023 History of Presen t illness Narrative Cardiac Rehab Session. Ref to daily session report in Procedures. Supervising Physician: Dr. Bethea documented in this encounter [facility] 04-21-2023 History of Presen t illness Narrative Cardiac Rehab Session. Ref to daily session report in Procedures. Supervising Physician: Dr. White documented in this encounter [facility] 04-17-2023 History of Presen t illness Narrative Cardiac Rehab Session. Ref to daily session report in Procedures. Supervising Physician: Dr. White documented in this encounter [facility] 04-16-2023 History of Presen t illness Narrative Cardiac Rehab Session. Ref to daily session report in Procedures. Supervising Physician: Dr. Silverman documented in this encounter [facility] 04-14-2023 History of Presen t illness Narrative Cardiac Rehab Session. Ref to daily session report in Procedures. Supervising Physician: Dr. White documented in this encounter [facility] 04-09-2023 History of Presen t illness Narrative Cardiac Rehab Session. Ref to daily session report in Procedures. Supervising Physician: Dr. Beverly documented in this encounter [facility] 04-07-2023 History of Presen t illness Narrative Cardiac Rehab Session. Ref to daily session report in Procedures. Supervising Physician: Dr. Beverly documented in this encounter [facility] 04-03-2023 History of Presen t illness Narrative Cardiac Rehab Session. Ref to daily session report in Procedures. Supervising Physician: Dr. Beverly documented in this encounter [facility] 03-26-2023 History of Presen t illness Narrative Cardiac Rehab session. Refer to daily session report in procedures. Supervising Physician: Dr. Beverly documented in this encounter [facility] 03-19-2023 History of Presen t illness Narrative Cardiac Rehab session. Refer to daily session report in procedures. Supervising Physician: Dr. Beverly documented in this encounter [facility] 03-17-2023 History of Presen t illness Narrative Cardiac Rehab Session. Ref to daily session report in Procedures. Supervising Physician: Dr. Beverly documented in this encounter [facility] 03-13-2023 History of Presen t illness Narrative Cardiac Rehab Session. Ref to daily session report in Procedures. Supervising Physician: Dr. White documented in this encounter [facility] Evaluation note Diagnosis Onset Date Atrial fibrillation with rap id ventricular response acute Non-ST elevated myocardial i nfarction (non-STEMI) acute [facility] Work Phone: Evaluation note* Diagnosis S/P [...] [facility] S/P PTCA (percutaneous transluminal coronary [...] [facility] S/P [facility]CA (percutaneous transluminal coronary [...] coronary angi[facility] [place] [facility] Diagnosis S/P PTCA (percutaneous transluminal coronary angioplasty)- Primary Postsurgical percutaneous transluminal coronary angioplasty [facility] Diagnosis S/P PTCA (percutaneous transluminal coronary angioplasty)- Primary Postsurgical percutaneous transluminal coronary angioplasty status [facility] [place] [facility]* Diagnosis S/P PTCA (percutaneous transluminal coronary angioplasty)- Primary Postsurgical percutaneous transluminal coronary angioplasty [facility] Diagnosis S/P PTCA (percutaneous transluminal coronary angioplasty)- Primary Postsurgical percutaneous transluminal coronary angioplasty [facility] Diagnosis Onset Date Resolution Status Atrial fibrillation acute Hyperlipemia, mixed acute Atherosclerotic heart diseas e of [place] coronary artery without angina pectoris chronic CHF (congestive heart failure) chronic HTN (hypertension), benign c hronic [facility] Work Phone: Evaluation noteNo assessment information available [facility] Work Phone: Reason for referral (narrative)No reason for [facility] Work Phone: Summary Purpose Family History No [...] February 11, 2023 1 2:06pm Power of Advertising Intern No February 11, 2023 12:06pm Advance Directive Response Recorded Date/ Time Living Will No February 11, 2023 1 :06pm Power of Advertising Intern No February 11, 2023 1:06pm Chief Complaint and Reason for Visit Chief Complaint AFIB W/ RVR, NON KHALIF GA Reason for Visit Atrial fibrillation with rapid ventricular response Non-ST elevated myocardial infarction (non-STEMI) Chief Complaint 4 M FU EORDER Reason for Visit Atrial fibrillation Hyperlipemia, mixed 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 CHF (congestive heart failure) HTN (hypertension), benign Chief Complaint EORDER Chief Complaint Admit Date Atherosclerosis of chit[place] arteries of ex tremities April 01, 2025 7:31am Additional Source Comments (unrecognized sect ion and content) No Status Records FoundNo Status Records FoundNo Status Records FoundNo Status Records Found INFORMATION SOURCE (unrecogn ized section and content) DATE CREATED AUTHOR 03/13/2019 [facility] DATE CREATED AUTHOR AUTHOR'S ORGANIZ ATION 06/17/2023 [facility] DATE CREATED AUTHOR AUTHOR'S ORGANIZ ATION 08/19/2023 [facility] DATE CREATED AUTHOR AUTHOR'S ORGANIZ ATION 07/07/2025 [facility] Care Teams (unrecognized sec tion and content) Team Status: Active Member Role Status Dates Dr. Heriberto Gerber MD Family Provider Active Dr. Heriberto Gerber MD Primary Care Provider Active Team Status: Active Member Role Status Dates Dr. Heriberto Gerber MD Primary Care Provider Active Dr. Raad Pierre DO Emergency Provider Active Dr. Aidee Stinson MD Admit Provider, Attending Prov ider Active [employer] Supervisor Relationship Specialty Start Date End Date No, Physician [facility] PCP - General 01/22/23 [employer] Supervisor Relationship Specialty Start Date End Date No, Physician [facility] PCP - General 01/22/23 [employer] Supervisor Relationship Specialty Start Date End Date No, Physician [facility] PCP - General 01/22/23 [employer] Supervisor Relationship Specialty Start Date End Date No, Physician [facility] PCP - General 01/22/23 [employer] Service Supervisor Relationship Specialty Start Date End Date No, Physician [facility] PCP - General 01/22/23 [employer] Service Supervisor Relationship Specialty Start Date End Date No, Physician [facility] PCP - General 01/22/23 [employer] Service Supervisor Relationship Specialty Start Date End Date No, Physician [facility] PCP - General 01/22/23 [employer] Service Supervisor Relationship Specialty Start Date End Date No, Physician [facility] PCP - General 01/22/23 [employer] Service Supervisor Relationship Specialty Start Date End Date No, Physician [facility] PCP - General 01/22/23 [employer]er Service Supervisor Relationship Specialty Start Date End Date No, Physician [facility] PCP - General 01/22/23 [employer]er Service Supervisor Relationship Specialty Start Date End Date No, Physician [facility] PCP - General 01/22/23 [employer]er Service Supervisor Relationship Specialty Start Date End Date No, Physician [facility] PCP - General 01/22/23 [employer]er Service Supervisor Relationship Specialty Start Date End Date No, Physician [facility] PCP - General 01/22/23 [employer]er Service Supervisor Relationship Specialty Start Date End Date No, Physician [facility] PCP - General 01/22/23 [employer]er Service Supervisor Relationship Specialty Start Date End Date No, Physician [facility] PCP - General 01/22/23 [employer]er Service Supervisor Relationship Specialty Start Date End Date No, Physician [facility] PCP - General 01/22/23 [employer]er Service Supervisor Relationship Specialty Start Date End Date No, Physician [facility] PCP - General 01/22/23 [employer]er Service Supervisor Relationship Specialty Start Date End Date No, Physician [facility] PCP - General 01/22/23 [employer]er Service Supervisor Relationship Specialty Start Date End Date No, Physician [facility] PCP - General 01/22/23 [employer]er Service Supervisor Relationship Specialty Start Date End Date No, Physician [facility] PCP - General 01/22/23 [employer]er Service Supervisor Relationship Specialty Start Date End Date No, Physician [facility] PCP - General 01/22/23 [employer]er Service Supervisor Relationship Specialty Start Date End Date No, Physician [facility] PCP - General 01/22/23 [employer]er Service Supervisor Relationship Specialty Start Date End Date No, Physician [facility] PCP - General 01/22/23 [employer]er Service Supervisor Relationship Specialty Start Date End Date No, Physician [facility] PCP - General 01/22/23 [employer]er Service Supervisor Relationship Specialty Start Date End Date No, Physician [facility] PCP - General 01/22/23 [employer]er Service Supervisor Relationship Specialty Start Date End Date No, Physician [facility] PCP - General 01/22/23 [employer]er Service Supervisor Relationship Specialty Start Date End Date No, Physician [facility] PCP - General 01/22/23 [employer]er Service Supervisor Relationship Specialty Start Date End Date No, Physician [facility] PCP - General 01/22/23 [employer] Service Supervisor Relationship Specialty Start Date End Date No, Physician [facility] PCP - General 01/22/23 Team Status: Inactive Member Role Status Dates Dr. Heriberto Gerber MD Primary Care Provider, Referring Provider Active [facility] [place] ASSOCIATE DIRECTOR OF DEVELOPMENT, ASSOCIATE DIRECTOR OF DEVELOPMENT-C Attending Provider Active Team Status: Inactive Member Role Status Dates Dr. Heriberto Gerber MD Primary Care Provi barbara, Attending Provider, Referring Provider Active Team Status: Active Member Role/Relationship Status Dates Dr. Heriberto Gerber MD Primary Care Provider Active Team Status: Inactive Member Role/Relationship Status Dates Dr. Heriberto Gerber MD Primary Care Provider Active Start: April 01, 2025 End: April 01, 2025 Dr. Eliezer Canada MD Attending Provider Active Start: April 01, 2025 End: April 01, 2025 Dr. Eliezer Canada MD Referring Provider Active Start: April 01, 2025 End: April 01, 2025 Goals (unrecognized section and content) Goals may [...] (non-ST elevated myocardial infarction) (HCC) Atherosclerosis of chitina coronary artery of chit[place] heart without angina pectoris Xavier Euceda MD [address] [place] [address] [facility] [facility] [address] [place] [address] Referral ID Status Reason Start Date Expiration Date V isits Requested Visits Authorized [id number] Authorized 02/28/2023 02/28/2024 1 37 Reason Comments Chest Pain Specialty Diagnoses / Procedures Referred By Contac t Referred To Contact Cardiac Rehabilitation Diagnoses Presence of coronary angioplasty implant and graft Non-STEMI (non-ST elevated myocardial infarction) (HCC) Atherosclerosis of chitina coronary artery of [place] heart without angina pectoris Xavier Euceda MD [address] [place], [place] [id number] [facility] [address] [place] [address] Referral ID Status Reason Start Date Expiration Date Visits Re quested Visits Authorized [id number] Closed 02/28/2023 02/28/2024 1 37 FOR RECORDS [...] BE BASED ON THE PRIMARY CLINICAL RECORDS. [facility] B[employer] A [employer] [facility]. provides no warranty or guarantee of the accuracy or completeness of information in this document.
--- NOTE | 2025-07-20 00:10 | CT_ITS ---
PROCEDURE: CTA CHEST W/WO CONTRAST 07/20/2025 REASON FOR EXAM: DYSPNEA TECHNIQUE: Procedure Code: [id number] Modality: CT Procedure: CTA CHEST W/WO CONTRAST Multiplanar Sagittal and Coronal images were obtained. CONTRAST: Isovue 370 VOLUME: 100 mL One or more dose reduction techniques were used (e.g., Automated exposure control, adjustment of the mA and/or kV according to patient size, use of iterative reconstruction technique). RADIATION DOSE SUMMARY: CTDlvol: 15.83 mGy DLP: 607 mGycm COMPARISON: Chest radiograph on 07/19/2025. FINDINGS: Mild bilateral pleural effusions. Passive atelectatic airspace disease of the lower lobes. Mild cardiomegaly. Airspace consolidation of the left lower lobe. Interstitial pulmonary edema. Mild alveolar pulmonary edema. Mildly prominent mediastinal and hilar lymph nodes are noted with the largest measuring 1.3 cm, probably reactive. Diffuse spondylosis. Normal enhancement of the main pulmonary artery and right and left pulmonary arteries. Normal enhancement of the bilateral peripheral pulmonary arteries. There is no demonstrated pulmonary embolism. Normal thoracic aorta and visualized great vessels. There is no demonstrated aortic dissection. Normal pericardium. Normal visualized trachea and bronchi. Normal visualized upper abdomen. CT/CTA Chest W/WO Contrast IMPRESSION: Mild bilateral pleural effusions. Passive atelectatic airspace disease of the lower lobes. Mild cardiomegaly. Airspace consolidation of the left lower lobe. Interstitial pulmonary edema. Mild alveolar pulmonary edema. Mildly prominent mediastinal and hilar lymph nodes are noted with the largest m easuring 1.3 cm, probably reactive. Diffuse spondylosis. No CT evidence of pulmonary embolus or aortic dissection. Reading Location: [place] [address]
[2025-07-20 00:21] VITALS: BP 168/105; PULSE 67; RESP 20; O2SAT 96
[2025-07-20 00:25] LABS: Hematocrit 43.2 % (40-54); Hemoglobin 14.2 g/dL (13.0-16.5); Immature Granulocytes Count 0.030 X10^3/uL (0.0-0.0); Mean Corp Hgb Conc 32.9 g/dL (32-36); Mean Corpuscular Volume 91.1 fL (80-94); Mean Platelet Vol. 9.4 fl (6.2-12.0); NRBC Flagged by Analyzer 0 % (0-5); Platelet Count 380 K/mm3 (150-450); RBC Distribution Width CV 13.7 % (11.6-14.6); RBC Distribution Width SD 46.0 fl (35.1-43.9); Red Blood Count 4.74 M/mm3 (4.6-6.2); White Blood Count 9.0 K/mm3 (4.4-11.0)
[2025-07-20 00:33] LABS: Anion Gap 11 (5-15); BUN 28 mg/dL (4-19); BUN/Creat Ratio 18.1 RATIO (10-20); Calcium,Total 9.5 mg/dL (7.6-11.0); Carbon Dioxide 26.3 mmol/L (21.0-32.0); Chloride 101 mmol/L (98-108); Estimated Creatinine Clearance 50.90 ml/min (50-250); Glucose 141 mg/dL (70-99); Magnesium 2.4 mg/dL (1.5-2.2); Potassium 4.1 mmol/L (3.3-5.1); Pro- Brain NATRIURETIC PEPTIDE 3998 pg/mL (<=1800)
[2025-07-20 01:00] VITALS: BP 151/71; PULSE 65; RESP 18; O2SAT 97
--- NOTE | 2025-07-20 01:46 | EX.ED.DYSGE1 ---
HPI History of Present Illness Chief Complaint: Shortness of Breath Informant: patient Narrative Narrative: Patient is a seven 4-year-old male with past medical history of CAD requiring bypass and 2000 and stent placement 2 years ago. He also has a history of hypertension hyperlipidemia and paroxysmal atrial fibrillation. He states he is not on anticoagulation. He denies any history of heart failure but states that he does take a "water pill" occasionally when he realizes he is gaining weight. He states in the past 2 days he has had increasing shortness of breath and wheeze. He denies any history of asthma COPD emphysema or smoking. He states has been no fevers chills or known sick contacts. He states symptoms worsen when he lies flat. He reports he has no need for supplemental oxygen at baseline. Therefore as symptoms are progressing in nature he presents for evaluation [facility] Medical History HFrEF (heart failure with reduced ejection fraction) Atherosclerotic heart disease of [place] coronary artery without angina pectoris HTN (hypertension), benign CHF (congestive heart failure) Atrial fibrillation with rapid ventricular response Coronary artery disease Home Medications Medication Instructions Recorded Last Taken Type losartan 50 mg tablet 50 mg PO BID #180 tabs 04/10/23 Unknown Rx aspirin 81 mg tablet,delayed 81 mg PO QDAY #90 tabs 07/23/24 Unknown Rx release (Adult Aspirin Regimen) metoprolol tartrate 100 mg tablet 100 mg PO BID #180 TABLETS 08/12/24 Unknown Rx furosemide 40 mg tablet (Lasix) 40 mg PO DAILY #90 tabs 08/16/24 Unknown Rx amlodipine 10 mg tablet 10 mg PO DAILY 07/19/25 Unknown History apixaban 5 mg tablet (Eliquis) 5 mg PO BID 30 days #60 tabs 07/20/25 Unknown Rx furosemide 40 mg tablet (Lasix) 40 mg PO DAILY 30 days #30 tabs 07/20/25 Unknown Rx metoprolol tartrate 50 mg tablet 50 mg PO BID 30 days #60 tabs 07/20/25 Unknown Rx Allergy/AdvReac Type Severity Reaction Status Date / Time Opioids - Morphine Analogues AdvReac Unknown Hallucinati Verified 07/19/25 23:22 ons Family History Mother CAD (coronary artery disease) Sister CAD (coronary artery disease), Onset Age: 70 in setting COVID Surgical History Stented coronary artery (~02/12/23) Hx of foot surgery Hx of knee surgery History of heart bypass surgery (1998) Social History Smoking Status: Former smoker alcohol intake: never substance use type: does not use caffeine: Yes Type: coffee Number of servings: 1 ROS ROS ED Constitutional Constitutional ED: Denies chills or fever(s) ENT ENT ED: Denies rhinorrhea or sore throat Cardiovascular Cardiovascular: Reports orthopnea and paroxysmal nocturnal dyspnea; Denies chest pain, palpitations or racing heartbeat Respiratory/Chest Respiratory/Chest: Reports cough, dyspnea, dyspnea on exertion, orthopnea and paroxysmal nocturnal dyspnea Gastrointestinal Gastrointestinal: Denies abdominal pain, diarrhea, nausea or vomiting Musculoskeletal Musculoskeletal: Denies back pain or myalgias Integumentary Denies rash Neurologic Neurologic: Denies headache(s) Hematologic/Lymphatic Hematologic/Lymphatic: Denies easy bleeding or easy bruising Allergic/Immunologic Allergic/Immunologic ED: Denies mouth swelling or tongue swelling EXAM Physical Exam Const Vital Signs: 07/19/25 23:23 07/19/25 23:31 07/20/25 00:21 Temperature 96.4 F L Temperature Source Temporal Pulse Rate 105 H 67 Respiratory Rate 24 H 20 H Respiratory Effort Short of Breath Respiratory Pattern Tachypnea Blood Pressure 212/128 H 168/105 H Blood Pressure Mean 156 126 Pulse Ox 93 96 Oxygen Delivery Method Room Air Room Air Room Air 07/20/25 01:00 07/20/25 02:00 07/20/25 02:52 Temperature 97.6 F L Temperature Source Pulse Rate 65 66 64 Respiratory Rate 18 19 H 18 Respiratory Effort Respiratory Pattern Blood Pressure 151/71 H 146/73 H 174/82 H Blood Pressure Mean 97 97 112 Pulse Ox 97 96 96 Oxygen Delivery Method Room Air Room Air Positive well nourished and well developed General Appearance ED: well developed; Negative for pallor HEENT HEENT Narrative: Normocephalic atraumatic No tongue or lip swelling no oral lesions no airway edema or compromise; no secondary findings in the posterior pharynx to suggest infection Eyes PERRL and EOMs intact bilaterally General Eye ED: Negative for scleral icterus Neck supple Neck Narrative: Mild JVD noted on right Chest Wall palpation of chest normal Resp Resp Narrative: Breath sounds are diminished throughout with crackles in bilateral bases Patient demonstrates tachypnea but otherwise no nasal flaring or retractions or accessory muscle use Positive orthopnea however Cardio Rate: tachycardic and other Other Details: Irregularly irregular rhythm with tachycardic rate and occasional ectopic beat most consistent with atrial fibrillation GI normal to inspection, nondistended, normoactive bowel sounds, non-tender, non-distended and no masses GI Narrative: No voluntary guarding or rigidity or pulsatile mass No fluid wave noted Auscultation: normoactive bowel sounds Palpation: soft Extremity Extremity Narrative: Trace to +1 pitting edema to the bilateral lower extremities that is equal and symmetric Negative Homans' sign bilaterally Neuro oriented x3, CN's II-XII intact bilaterally and no sensory deficits noted Sensorium / Orientation: alert Motor Exam: strength 5/5 throughout Psych mental status grossly normal Skin no rashes or lesions noted and no wounds General Skin Exam: Negative for jaundice or pallor MDM MDM MDM Narrative Medical decision making narrative: Patient arrived to the ER hypertensive and tachycardic. He was also tachypneic but satting in the mid 90s on room air. His physical exam is most consistent with volume overload/CHF. He denies any fevers chills or known sick contacts but in order to assess for potential viral illness such as COVID influenza or RSV a viral swab was obtained. In order to assess for acute blood loss anemia blood work was also ordered. In order to check for potential cause of the A-fib such as electrolyte abnormality or thyroid dysfunction blood work was checked as well. Labs revealed no clinically significant finding other than his elevated proBNP which correlates with his chest x-ray showing vascular congestion. He received Lasix as well as captopril in the ER and was given a bolus of Cardizem for his A-fib with RVR. The patient's blood pressure and heart rate reduced and he felt "much better". Prior to the medication if he walked to the bathroom his pulse ox dropped to 88%. After treatment he was able to ambulate and his pulse ox would only go to 90/91%. At rest he remained 94 to 96%. I was unsure how long he has been in A-fib and is not on anticoagulation CTA was obtained to rule out pulmonary embolus. CTA revealed no PE. It did show changes consistent with his volume overload. There was also question of potential infiltrate in the left lower lung. I feel this is all compressive atelectasis from the volume overload as he does not have a fever he denies sick contacts and does not have a elevated white count or neutrophil count. Therefore I will not provide antibiotics. As the patient's heart rate is now controlled he is not hypoxic or requiring noninvasive therapy with BiPAP I do not feel the need for admission and he be given symptomatic medications follow-up with his family doctor as well as service control operator for further evaluation History & Record Review Discussion w/independent historian: Patient Lab Data Attestation: I reviewed the patient's lab results. Labs: Laboratory Results - last 24 hr 07/19/25 23:50 WBC 9.0 RBC 4.74 Hgb 14.2 Hct 43.2 MCV 91.1 MCH 30.0 MCHC 32.9 RDW Std Deviation 46.0 H RDW Coeff of Kash 13.7 Plt Count 380 MPV 9.4 Immature Gran % (Auto) 0.300 Neut % (Auto) 67.7 Lymph % (Auto) 22.0 Ritchie % (Auto) 6.1 Eos % (Auto) 3.1 Baso % (Auto) 0.8 Absolute Neuts (auto) 6.1 Absolute Lymphs (auto) 1.98 Nucleated RBC % 0 PT 13.6 INR 1.0 APTT 30.4 Sodium 138 Potassium 4.1 Chloride 101 Carbon Dioxide 26.3 Anion Gap 11 BUN 28 H Creatinine 1.55 H Estim Creat Clear Calc 50.90 Est GFR (MDRD) Non-Af 46 L BUN/Creatinine Ratio 18.1 Glucose 141 H Calcium 9.5 Magnesium 2.4 H NT pro BNP II 3998 H TSH 5.680 H Radiography Diagnostic Testing: Clinical Impression(s) from Imaging Studies Chest X-Ray 07/19/25 23:50 IMPRESSION: 1. Mild cardiomegaly with diffuse pulmonary vascular congestion. 2. Bibasilar airspace opacities with trace pleural effusions. Reading Location: [facility] Chest CTA 07/20/25 00:10 IMPRESSION: Mild bilateral pleural effusions. Passive atelectatic airspace disease of the lower lobes. Mild cardiomegaly. Airspace consolidation of the left lower lobe. Interstitial pulmonary edema. Mild alveolar pulmonary edema. Mildly prominent mediastinal and hilar lymph nodes are noted with the largest measuring 1.3 cm, probably reactive. Diffuse spondylosis. No CT evidence of pulmonary embolus or aortic dissection. Reading Location: [place] [id number] Chest x-ray as interpreted by the emergency medicine physician reveals cardiomegaly with pulmonary vascular congestion consistent with CHF Discharge Plan Triage Chief Complaint: Shortness of Breath ED Provider: Carlito Fernandez Dx/Rx/DC Orders Clinical Impression: Atrial fibrillation, CHF (congestive heart failure), HTN (hypertension), benign, Hyperlipemia, mixed, CAD (coronary artery disease) Instructions: AFib Dc, ED Heart Failure, Congestive (CHF) Prescriptions: New furosemide [Lasix] 40 mg tablet 40 mg PO DAILY 30 Days Qty: 30 0RF Eliquis 5 mg tablet 5 mg PO BID 30 Days Qty: 60 0RF metoprolol tartrate 50 mg tablet 50 mg PO BID 30 Days Qty: 60 0RF No Action aspirin [Adult Aspirin Regimen] 81 mg tablet,delayed release (DR/EC) 81 mg PO QDAY Qty: 90 3RF amlodipine 10 mg tablet 10 mg PO DAILY losartan 50 mg tablet 50 mg PO BID Qty: 180 3RF metoprolol tartrate 100 mg tablet 100 mg PO BID Qty: 180 3RF furosemide [Lasix] 40 mg tablet 40 mg PO DAILY Qty: 90 3RF Primary Care Provider: Heriberto Gerber Referrals: Xavier Euceda MD [Med Staff - Active Staff, Cardiology] Heriberto Gerber MD [Primary Care Provider, Family Practice] Activity Restrictions/Additional Instructions: Your workup today revealed changes consistent with volume overload/congestive heart failure. You are also having an abnormal heart rhythm known as atrial fibrillation. As atrial fibrillation increases your risk for stroke and blood clot please take Eliquis twice a day to prevent this. In order to prevent a elevated heart rate from the atrial fibrillation take metoprolol twice a day as directed. Because there is excess fluid in your lung tissue please take the furosemide/Lasix once daily to help resolve this as well. Follow-up with your service control operator to discuss the treatment changes and ensure they want you on this regimen of medication. If you develop worsening shortness of breath chest pain or fever or have any further concerns return to the ER for repeat evaluation Print Language: Slovak Disposition Disposition: Home, Self Care Discharge Date/Time: 07/20/25 03:03 D/C Safety Score for UGIB Assessment Randy-Blatchford Bleeding Score (GBS): Stratifies upper GI bleeding patients who are "low-risk" and candidates for outpatient management. Sex: Male Hemoglobin, BUN, Recent Vital Signs: Hgb 14.2 g/dL (13.0-16.5) 07/19/25 23:50 BUN 28 mg/dL (4-19) H 07/19/25 23:50 Pulse Rate 64 Blood Pressure 174/82 Total Risk Score: 3 Score Interpretation: Score of 0: A GBS of 0 is a “Low Risk” GI bleed, and is highly sensitive (99.6% in a 2007 retrospective study) for predicting which patients did not require any “medical intervention”: blood transfusion, endoscopy, or surgery. This was confirmed in a 2009 [facility] study where patients with a score of 0 were actually discharged and had no GI bleeding mortality at 6 month followup Score above 0: A GBS greater than zero suggests a “High Risk” GI bleed that is likely to require “medical intervention”: transfusion, endoscopy, or surgery. A higher GBS also correlated with a higher likelihood of needing intervention Scores >/= 6 are associated with >50% risk of needing intervention D/C Safety Score for LGIB Assessment Assessment Tool: Readmission and adverse event risk in patients with acute lower GI bleeding. Age, in years: >/= 70 Sex: Male Hemoglobin and Recent Vital Signs: Hgb 14.2 g/dL (13.0-16.5) 07/19/25 23:50 Pulse Rate 64 07/20/25 02:52 Blood Pressure 174/82 07/20/25 02:52 Probability of safe discharge: 98% Total Risk Score: 3 Score Interpretation: Probability Percentage of safe discharge (absence of rebleeding, blood transfusion, therapeutic intervention, 28 day readmission, or ) Score of 8 or below: Consider discharge, with appropriate precautions. Score of 9 or above: Discharge NOT recommended. Consider admission with further workup and resuscitation as necessary.
[2025-07-20 02:00] VITALS: BP 146/73; PULSE 66; RESP 19; O2SAT 96
[2025-07-20 02:52] VITALS: BP 174/82; PULSE 64; RESP 18; TEMP 36.4; O2SAT 96
[2025-07-20] MEDS: APIXABAN 5 MG TABLET PO (02:59)
== END 2025-07-20 03:03 | disposition home or self-care (01) ==
PROVIDERS: Emergency Provider Emergency Medicine; PCP Family Medicine; Visit Provider Emergency Medicine
DX: I11.0 Hypertensive heart disease with heart failure (principal); I50.22 Chronic systolic (congestive) heart failure; I48.91 Unspecified atrial fibrillation; R06.82 Tachypnea, not elsewhere classified; Z95.5 Presence of coronary angioplasty implant and graft; I25.10 Atherosclerotic heart disease of native coronary artery without angina pectoris; Z87.891 Personal history of nicotine dependence; Z82.49 Family history of ischemic heart disease and other diseases of the circulatory system; E78.2 Mixed hyperlipidemia; Z95.1 Presence of aortocoronary bypass graft; J90 Pleural effusion, not elsewhere classified; R05.9 Cough, unspecified
CPT/HCPCS: 71045; 71275; 80048; 83735; 83880; 84443; 85025; 85610; 85730; 87631; 93005; 99283; Q9967; A4216; J1938